=== PATIENT | male | born 1965 | race American Indian/Alaskan Native ===

== ENCOUNTER 2019-06-12 01:04 | Inpatient (IN) | payer OTHER ==
[2019-06-12] MEDS ORDERED: CLEOCIN 600 MG/50 mL 600 MG/50 ML BAG IV ONE (06:45)
--- NOTE | 2019-06-12 06:47 | Emergency Department Report ---
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 He has a history of diabetes. He states a few weeks ago he was admitted to [facility], for diabetes. He was discharged, and now presents with complaint of infected sacral wounds. He states his caregiver believes the wound is infected. He states he had a fever 2 weeks ago. No fevers in the past 7 days. He also describes muscle cramps. He denies additional complaints. He believes he acquired the wound from his hospitalization. -: week(s) Consistency: constant Improves with: none Worsens with: none - Related Data Home Medications Medication Instructions Recorded Confirmed Last Taken Insulin Glargine,Hum.rec.anlog 06/12/19 Unknown [Lantus Solostar] Insulin Glargine,Hum.rec.anlog 35 units SUB-Q DAILY 06/12/19 06/12/19 06/12/19 10:14 [Lantus Solostar] 35 Allergies Allergy/AdvReac Type Severity Reaction Status Date / Time No Known Allergies Allergy Unverified 06/12/19 07:02 ED Review of Systems ROS: Stated complaint: BED SORES/OPEN WOUNDS Other details as noted in HPI Constitutional: fever Eyes: denies: eye discharge ENT: denies: congestion Respiratory: denies: wheezing Cardiovascular: denies: syncope Gastrointestinal: denies: abdominal pain Musculoskeletal: myalgia Skin: lesions Neurological: denies: weakness Hematological/Lymphatic: denies: easy bleeding ED Past Medical Hx - Past Medical History Previous Medical History?: Yes Hx Diabetes: Yes - Surgical History Past Surgical History?: No - Social History Smoking Status: Former Smoker Substance Use Type: None - Medications Home Medications: Home Medications Medication Instructions Recorded Confirmed Last Taken Type Insulin Glargine,Hum.rec.anlog 06/12/19 Unknown History [Lantus Solostar] Insulin Glargine,Hum.rec.anlog 35 units SUB-Q DAILY 06/12/19 06/12/19 06/12/19 10:14 History [Shyla Padilla] 35 ED Physical Exam - General Limitations: No Limitations General appearance: alert, in no apparent distress - Head Head exam: Present: atraumatic, normocephalic - Eye Eye exam: Present: normal appearance - ENT ENT exam: Present: normal exam, normal orophraynx, mucous membranes moist, normal external ear exam - Neck Neck exam: Present: normal inspection, full ROM. Absent: tenderness, meningismus - Respiratory Respiratory exam: Present: normal lung sounds bilaterally. Absent: respiratory distress - Cardiovascular Cardiovascular Exam: Present: regular rate, normal rhythm, normal heart sounds. Absent: bradycardia, tachycardia, irregular rhythm, systolic murmur, diastolic murmur, rubs, gallop - GI/Abdominal GI/Abdominal exam: Present: soft. Absent: distended, tenderness, guarding, rebound, rigid, pulsatile mass - Rectal Rectal exam: Present: other (there is a 4 x 4 centimeters sacral wounds, with purulent discharge, and gluteal induration. Outpatient Dietitian by NANCY Meyer). Absent: deferred, normal inspection - Extremities Exam Extremities exam: Present: normal inspection, full ROM, other (2+ pulses noted in the bilateral upper, lower extremities. There is no long bone tenderness. Musculoskeletal compartments are soft. The pelvis is stable.). Absent: pedal edema, calf tenderness - Back Exam Back exam: Present: normal inspection, full ROM. Absent: tenderness, CVA tenderness (R), CVA tenderness (L), paraspinal tenderness, vertebral tenderness - Neurological Exam Neurological exam: Present: alert, other (there is no facial droop. The tongue is midline. Extraocular movements are intact bilaterally. Patient speaking in full complete sentences. Shoulder shrug is intact bilaterally. Hearing is grossly intact bilaterally. Visual acuity intact to finger counting and color perception at a close distance. 5/5 strength 4 extremities. Sensation intact to light touch in 4 extremities.) - Psychiatric Psychiatric exam: Present: normal affect, normal mood - Skin Skin exam: Present: warm ED Course Vital Signs 06/12/19 06/12/19 06/12/19 01:12 06:40 09:24 Temperature 98.1 F 97.9 F 98.9 F Pulse Rate 81 73 73 Respiratory 20 22 18 Rate Blood Pressure 135/81 Blood Pressure 140/78 146/75 [Left] O2 Sat by Pulse 97 99 98 Oximetry - Reevaluation(s) Reevaluation #1: 06/12/19 07:43 Dr Plunkett to admit ED Medical Decision Making - Lab Data Result diagrams: 06/12/19 07:09 06/12/19 07:09 Vital Signs 06/12/19 06/12/19 01:12 06:40 Temperature 98.1 F 97.9 F Pulse Rate 81 73 Respiratory 20 22 Rate Blood Pressure 135/81 Blood Pressure 140/78 [Left] O2 Sat by Pulse 97 99 Oximetry Lab Results 06/12/19 06/12/19 06/12/19 Range/Units 01:44 07:09 07:09 WBC 6.7 (4.5-11.0) K/mm3 RBC 3.49 L (3.65-5.03) M/mm3 Hgb 11.0 L (11.8-15.2) gm/dl Hct 32.9 L (35.5-45.6) % MCV 94 (84-94) fl MCH 32 (28-32) pg MCHC 34 (32-34) % RDW 17.7 H (13.2-15.2) % Plt Count 545 H (140-440) K/mm3 Lymph % (Auto) 33.9 (13.4-35.0) % [place] % (Auto) 9.1 H (0.0-7.3) % Eos % (Auto) 1.7 (0.0-4.3) % Baso % (Auto) 0.5 (0.0-1.8) % Lymph # 2.3 (1.2-5.4) K/mm3 [place] # 0.6 (0.0-0.8) K/mm3 Eos # 0.1 (0.0-0.4) K/mm3 Baso # 0.0 (0.0-0.1) K/mm3 Seg Neutrophils % 54.8 (40.0-70.0) % Seg Neutrophils # 3.7 (1.8-7.7) K/mm3 VBG pH 7.338 (7.320-7.420) POC Glucose 112 H (70-105) - Medical Decision Making Differential diagnosis, including not limited to: Infected sacral wounds, gluteal cellulitis Assessment and plan: 53-year-old gentleman with infected sacral wound. He is afebrile with reassuring vital signs. There is clinical evidence of gluteal cellulitis but no abscess. He'll benefit from wound debridement, antibiotics and wound care. Based off of the exam, need for urgent debridement, he meets criteria for hospitalization. He does not meet criteria for sepsis. Discussed plan of care for admission with patient and caregiver, who verbalized understanding, and who are amenable to hospitalization. Contacted general surgeon, Dr. Louise Wagner, who graciously agreed to follow in consultation. We will discussed with the Hospital physician to arrange admission. Critical care attestation.: If time is entered above; I have spent that time in minutes in the direct care of this critically ill patient, excluding procedure time. ED Disposition Clinical Impression: Cellulitis, gluteal, Infected wound Disposition: OP ADMIT IP TO THIS HOSP Is pt being admited?: Yes Condition: Good
[2019-06-12 07:31] LABS: Basophils % (Auto) 0.5 % (0.0-1.8); Eosinophils # (Auto) 0.1 K/mm3 (0.0-0.4); Eosinophils % (Auto) 1.7 % (0.0-4.3); Hematocrit 32.9 % (35.5-45.6); Lymphocytes # (Auto) 2.3 K/mm3 (1.2-5.4); Lymphocytes % (Auto) 33.9 % (13.4-35.0); Mean Corpuscular HGB Conc 34 % (32-34); Mean Corpuscular Volume 94 fl (84-94); Monocytes # (Auto) 0.6 K/mm3 (0.0-0.8); Monocytes % (Auto) 9.1 % (0.0-7.3); Platelet Count 545 K/mm3 (140-440); Red Blood Count 3.49 M/mm3 (3.65-5.03); Red Cell Distribution Width 17.7 % (13.2-15.2)
[2019-06-12 07:42] LABS: INR 1.01 (0.87-1.13)
[2019-06-12 07:43] LABS: Partial Thromboplastin Time 27.7 Sec. (24.2-36.6)
[2019-06-12 07:50] LABS: Alanine Aminotransferase 10 units/L (7-56); Albumin 4.3 g/dL (3.9-5); BUN/Creatinine Ratio 20; Blood Urea Nitrogen 16 mg/dL (9-20); Calcium 9.3 mg/dL (8.4-10.2); Hemolysis Index 6
[2019-06-12] MEDS ORDERED: TYLENOL PO PRN (08:00)
[2019-06-12] MEDS ORDERED: PROVENTIL IH PRN (08:00)
[2019-06-12] MEDS ORDERED: ZOFRAN IV PRN (08:00)
[2019-06-12] MEDS ORDERED: SODIUM CHLORIDE FLUSH SYRINGE 10 ML IV PRN (08:00)
[2019-06-12] MEDS ORDERED: D50W (25GM) Syringe IV PRN (08:00)
--- NOTE | 2019-06-12 08:03 | History and Physical Report ---
History of Present Illness Date of examination: 06/12/19 Date of admission: 06/12/19 Chief complaint: Sacral ULCER History of present illness: Patient is a 53-year-old male with past medical history of diabetes mellitus and sacral ulcer just diagnosed a few weeks ago according to the patient was admitted to the [facility] for diabetic coma. The patient who was in his normal usual state of health up until a few weeks ago when he went into a coma and was rapidly transported to [facility] where he was diagnosed with DKA. He spends about 3 days according to the patient in the hospital following that developed sacral ulcer. He reported that he was managed at the time and was discharged with home health. He reports that he has been on Lantus and has been adjusting his dose based on his blood sugar current recommendations for his primary care physician. This morning he noted drainage from the sacral ulcer and promptly came to the hospital for evaluation. He denies any chest pain nausea vomiting or diarrhea. He reports Fever but unable to quantify it. Past History Past Medical History: diabetes, other (sacral ulcer) Past Surgical History: Other Social history: full code Family history: no significant family history Medications and Allergies Allergies Allergy/AdvReac Type Severity Reaction Status Date / Time No Known Allergies Allergy Unverified 06/12/19 07:02 Home Medications Medication Instructions Recorded Confirmed Last Taken Type Insulin Glargine,Hum.rec.anlog 06/12/19 Unknown History [Lantus Solostar] Insulin Glargine,Hum.rec.anlog 35 units SUB-Q DAILY 06/12/19 06/12/19 06/12/19 10:14 History [Lantus Solostar] 35 Review of Systems All systems: negative Constitutional: fever, fatigue, weakness, poor appetite, no weight loss, no weight gain, no chills, no sweats, no night sweats, no anorexia, no malaise, no lethargy, no chronic headaches, no daytime sleepiness, no chronic pain Ears, nose, mouth and throat: no ear discharge, no nasal congestion, no nasal discharge, no dental pain, no mouth pain, no dysphagia Cardiovascular: no chest pain, no palpitations, no edema, no lightheadedness, no shortness of breath, no dyspnea on exertion, no paroxysmal nocturnal dyspnea, no high blood pressure, no leg edema Respiratory: no cough with sputum, no excessive sputum, no hemoptysis, no shortness of breath, no dyspnea on exertion, no wheezing, no pleurisy, no pain on inspiration, no sleep apnea, no respiratory infections, no home oxygen Gastrointestinal: no abdominal pain, no nausea, no vomiting, no diarrhea, no constipation, no change in bowel habits, no hematemesis, no melena, no hematochezia, no heartburn, no jaundice Musculoskeletal: no neck stiffness, no neck pain, no shooting arm pain, no low back pain, no shooting leg pain, no leg numbness/tingling, no morning stiffness, no muscle weakness, no muscle cramps, no frequent falls, no loss of height, no prior amputations Integumentary: redness, sores, wounds, no rash, no pruritis, no lesions, no acne, no color changes Neurological: no transient paralysis, no weakness, no parathesias, no tingling, no change in mentation Psychiatric: no memory loss, no insomnia, no hallucinations, no depression, no hopelessness Endocrine: fatigue, no heat intolerance, no polyphagia, no excessive thirst, no polydipsia, no polyuria, no weight change, no proptosis Hematologic/Lymphatic: no easy bruising, no easy bleeding Allergic/Immunologic: no persistent infections, no anaphylaxis Exam - Constitutional Vitals: Temp Pulse Resp BP Pulse Ox 97.9 F 73 22 140/78 99 06/12/19 06:40 06/12/19 06:40 06/12/19 06:40 06/12/19 06:40 06/12/19 06:40 General appearance: Present: no acute distress, well-nourished - EENT Eyes: Present: PERRL, EOM intact ENT: hearing intact, clear oral mucosa - Neck Neck: Present: supple, normal ROM - Respiratory Respiratory effort: normal Respiratory: bilateral: CTA - Cardiovascular Rhythm: regular Heart Sounds: Present: S1 & S2. Absent: systolic murmur, diastolic murmur - Extremities Extremities: no ischemia, pulses intact, pulses symmetrical, No edema, normal temperature, normal color, Full ROM Peripheral Pulses: within normal limits - Abdominal General gastrointestinal: Present: soft, non-tender, non-distended, normal bowel sounds - Integumentary Integumentary: Present: warm, erythema (sacral ulcer-draining) - Psychiatric Psychiatric: appropriate mood/affect, intact judgment & insight, cooperative - Neurologic Neurologic: CNII-XII intact, moves all extremities - Allied Health Allied health notes reviewed: nursing Results - Labs CBC & Chem 7: 06/12/19 07:09 06/12/19 07:09 Labs: Laboratory Last Values WBC 6.7 K/mm3 (4.5-11.0) 06/12/19 07:09 RBC 3.49 M/mm3 (3.65-5.03) L 06/12/19 07:09 Hgb 11.0 gm/dl (11.8-15.2) L 06/12/19 07:09 Hct 32.9 % (35.5-45.6) L 06/12/19 07:09 MCV 94 fl (84-94) 06/12/19 07:09 MCH 32 pg (28-32) 06/12/19 07:09 MCHC 34 % (32-34) 06/12/19 07:09 RDW 17.7 % (13.2-15.2) H 06/12/19 07:09 Plt Count 545 K/mm3 (140-440) H 06/12/19 07:09 Lymph % (Auto) 33.9 % (13.4-35.0) 06/12/19 07:09 [place] % (Auto) 9.1 % (0.0-7.3) H 06/12/19 07:09 Eos % (Auto) 1.7 % (0.0-4.3) 06/12/19 07:09 Baso % (Auto) 0.5 % (0.0-1.8) 06/12/19 07:09 Lymph # 2.3 K/mm3 (1.2-5.4) 06/12/19 07:09 [place] # 0.6 K/mm3 (0.0-0.8) 06/12/19 07:09 Eos # 0.1 K/mm3 (0.0-0.4) 06/12/19 07:09 Baso # 0.0 K/mm3 (0.0-0.1) 06/12/19 07:09 Seg Neutrophils % 54.8 % (40.0-70.0) 06/12/19 07:09 Seg Neutrophils # 3.7 K/mm3 (1.8-7.7) 06/12/19 07:09 PT 13.0 Sec. (12.2-14.9) 06/12/19 07:09 INR 1.01 (0.87-1.13) 06/12/19 07:09 APTT 27.7 Sec. (24.2-36.6) 06/12/19 07:09 VBG pH 7.338 (7.320-7.420) 06/12/19 07:09 Sodium 141 mmol/L (137-145) 06/12/19 07:09 Potassium 4.8 mmol/L (3.6-5.0) 06/12/19 07:09 Chloride 103.4 mmol/L (98-107) 06/12/19 07:09 Carbon Dioxide 22 mmol/L (22-30) 06/12/19 07:09 Anion Gap 20 mmol/L 06/12/19 07:09 BUN 16 mg/dL (9-20) 06/12/19 07:09 Creatinine 0.8 mg/dL (0.8-1.5) 06/12/19 07:09 Estimated GFR > 60 ml/min 06/12/19 07:09 BUN/Creatinine Ratio 20 % 06/12/19 07:09 Glucose 115 mg/dL (75-100) H 06/12/19 07:09 POC Glucose 112 (70-105) H 06/12/19 01:44 Calcium 9.3 mg/dL (8.4-10.2) 06/12/19 07:09 Magnesium 1.80 mg/dL (1.7-2.3) 06/12/19 07:09 Total Bilirubin 0.20 mg/dL (0.1-1.2) 06/12/19 07:09 AST 17 units/L (5-40) 06/12/19 07:09 ALT 10 units/L (7-56) 06/12/19 07:09 Alkaline Phosphatase 47 units/L (35-129) 06/12/19 07:09 Total Creatine Kinase 60 units/L (55-170) 06/12/19 07:09 Total Protein 8.0 g/dL (6.3-8.2) 06/12/19 07:09 Albumin 4.3 g/dL (3.9-5) 06/12/19 07:09 Albumin/Globulin Ratio 1.2 % 06/12/19 07:09 Assessment and Plan Assessment and plan: Patient is a 53-year-old male with past medical history of diabetes mellitus and sacral ulcer just diagnosed a few weeks ago according to the patient was admitted to the [facility] for diabetic coma. The patient who was in his normal usual state of health up until a few weeks ago when he went into a coma and was rapidly transported to [facility] where he was diagnosed with DKA. He spends about 3 days according to the patient in the hospital following that developed sacral ulcer. He reported that he was managed at the time and was discharged with home health. He reports that he has been on Lantus and has been adjusting his dose based on his blood sugar current recommendations for his primary care physician. This morning he noted drainage from the sacral ulcer and promptly came to the hospital for evaluation. He reports Fever but unable to quantify it. He denies any chest pain nausea vomiting or diarrhea. He denies any fever at this time. CT pelvis: Decubitus Ulcer at the elvel of the coccyx without definite osteomyelitis. No drainable Fluid Collections is seen DM with controlled Blood glucose Sacral Pressure Ulcer-Infected r/o Osteomylitis SIRS as a result of Infected Pressure Ulcer Anemia Plan Admit to Inpatient, will likely benefit from debridement Wound care consult ID Consult considering complex wound in patient with DM Surgical consult-ED already spoke to surgeon Keep NPO Till surgical eval, in the mean time, add D5 NS, once patient starts to eat this can be discontinued Obtain records from [facility]- pt new to us Update home meds, so med rec can be done-discussed with Nurse at bedside Continue on abx- Will give a dose of Vancomycin and Cefepime and defer to ID DVT/GI prophy Advance Directives: Yes Plan of care discussed with patient/family: Yes
[2019-06-12] MEDS ORDERED: VANCOMYCIN 2,000 MG in NACL 0.9% 500 ML 500 ML IV ONE (09:00)
[2019-06-12] MEDS ORDERED: ZOSYN/NS 4.5GM/100ML 4.5 GM/100 ML VIAL IV SCH (09:00)
[2019-06-12] MEDS ORDERED: VANCOMYCIN PHARMACY TO DOSE IV SCH (09:00)
--- NOTE | 2019-06-12 09:23 | Cat Scan Report ---
CT of the pelvis without contrast INDICATION: Decubitus ulcer COMPARISON: None FINDINGS: No significant intrapelvic abnormality is seen. In the region of the coccyx and there is an overlying soft tissue ulceration containing minimal fluid and air. The underlying coccyx however ayana ws no definite bone destruction and no definite osteomyelitis is seen in this area. Otherwise no sign ificant abnormality IMPRESSION: Decubitus ulcer at the level of the coccyx without definite osteomyelitis. No drainable f luid collection is seen. Automated exposure control was utilized to diminish radiation dose. Signer Name: Jhony Gallegos MD Signed: 06/12/2019 9:19 AM Workstation Name: [id number]
[2019-06-12] MEDS: PEPCID IV SCH ×2 (10:16→23:03)
[2019-06-12] MEDS ORDERED: DAKIN'S HALF STRENGTH TP PRN (11:36)
[2019-06-12] MEDS: HumaLOG SUB-Q SCH ×4 (12:02→23:17)
[2019-06-12] MEDS: D5/0.45NS 1,000 ML IV SCH (12:02)
[2019-06-12] MEDS: SODIUM CHLORIDE FLUSH SYRINGE 10 ML IV SCH ×2 (12:03→23:03)
--- NOTE | 2019-06-12 12:37 | Consultation ---
History of Present Illness Consult date: 06/12/19 Chief complaint: sacral wound - History of present illness History of present illness: 53 yo M with hx of poorly controlled DM who presented to hospital with fever, and infected sacral wound. Patient was admitted to [facility] several weeks ago after a syncopal episode and found to have blood sugars >1000. He was treated accordingly and states he was in a coma for 3 days. While in the hospital he developed a sacral wound. 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 He does not have a PCP. NO pain in the area. Past History Past Medical History: diabetes Past Surgical History: No surgical history Social history: no significant social history Family history: no significant family history Medications and Allergies Allergies Allergy/AdvReac Type Severity Reaction Status Date / Time No Known Allergies Allergy Unverified 06/12/19 07:02 Home Medications Medication Instructions Recorded Confirmed Last Taken Type Insulin Glargine,Hum.rec.anlog 06/12/19 Unknown History [Lantus Solostar] Insulin Glargine,Hum.rec.anlog 35 units SUB-Q DAILY 06/12/19 06/12/19 06/12/19 10:14 History [Lantus Solostar] 35 Active Meds: Active Medications Acetaminophen (Tylenol) 650 mg PO Q4H PRN PRN Reason: Pain MILD(1-3)/Fever >100.5/DOMINGO Albuterol (Proventil) 2.5 mg IH Q4HRT PRN PRN Reason: Shortness Of Breath Dextrose (D50w (25gm) Syringe) 50 ml IV Q30MIN PRN PRN Reason: Hypoglycemia Famotidine (Pepcid) 20 mg IV BID ANDREW Last Admin: 06/12/19 10:16 Dose: 20 mg Documented by: Piperacillin Sod/Tazobactam Sod (Zosyn/Ns 4.5gm/100ml) 4.5 gm in 100 mls @ 200 mls/hr IV Q8HR ANDREW; Protocol Last Admin: 06/12/19 08:53 Dose: 200 mls/hr Documented by: Dextrose/Sodium Chloride (D5/0.45ns) 1,000 mls @ 75 mls/hr IV DIRECT ANDREW Last Admin: 06/12/19 12:02 Dose: 75 mls/hr Documented by: Vancomycin HCl 1,500 mg/ (Sodium Chloride) 530 mls @ 333.333 mls/hr IV Q12H ANDREW Insulin Human Lispro (Humalog) 0 unit SUB-Q ACHS ANDREW; Protocol Last Admin: 06/12/19 12:02 Dose: Not Given Documented by: Ondansetron HCl (Zofran) 4 mg IV Q8H PRN PRN Reason: Nausea And Vomiting Sodium Chloride (Sodium Chloride Flush Syringe 10 Ml) 10 ml IV BID ANDREW Last Admin: 06/12/19 12:03 Dose: 10 ml Documented by: Sodium Chloride (Sodium Chloride Flush Syringe 10 Ml) 10 ml IV PRN PRN PRN Reason: LINE FLUSH Sodium Hypochlorite (Dakin's Half Strength) 1 applic TP Q12H PRN PRN Reason: Wound Care Review of Systems All systems: negative (10 pt ROS performed and negative except for that listed in HPI) Exam Vital Signs Temp Pulse Resp BP Pulse Ox 98.1 F 81 20 135/81 97 06/12/19 01:12 06/12/19 01:12 06/12/19 01:12 06/12/19 01:12 06/12/19 01:12 Narrative exam: Gen: AAOx3. NAD ENT: no scleral icterus or conjunctival pallor CV; s1, S2 Resp: even and unlabored Abd: soft Ext: no c/c/e Sacrum: stage 3 sacral decubitus wound with mild odor and one area of necrotic tissue. No drainage, red base. Results - Labs 06/12/19 07:09 06/12/19 07:09 Abnormal lab results 06/12/19 06/12/19 06/12/19 Range/Units 01:44 07:09 07:09 RBC 3.49 L (3.65-5.03) M/mm3 Hgb 11.0 L (11.8-15.2) gm/dl Hct 32.9 L (35.5-45.6) % RDW 17.7 H (13.2-15.2) % Plt Count 545 H (140-440) K/mm3 [place] % (Auto) 9.1 H (0.0-7.3) % Glucose 115 H (75-100) mg/dL POC Glucose 112 H (70-105) Hemoglobin A1c (4-6) % 06/12/19 Range/Units 08:12 RBC (3.65-5.03) M/mm3 Hgb (11.8-15.2) gm/dl Hct (35.5-45.6) % RDW (13.2-15.2) % Plt Count (140-440) K/mm3 [place] % (Auto) (0.0-7.3) % Glucose (75-100) mg/dL POC Glucose (70-105) Hemoglobin A1c 9.5 H (4-6) % Diabetes panel 06/12/19 06/12/19 Range/Units 07:09 08:12 Sodium 141 (137-145) mmol/L Potassium 4.8 (3.6-5.0) mmol/L Chloride 103.4 (98-107) mmol/L Carbon Dioxide 22 (22-30) mmol/L BUN 16 (9-20) mg/dL Creatinine 0.8 (0.8-1.5) mg/dL Glucose 115 H (75-100) mg/dL Hemoglobin A1c 9.5 H (4-6) % Calcium 9.3 (8.4-10.2) mg/dL AST 17 (5-40) units/L ALT 10 (7-56) units/L Alkaline Phosphatase 47 (35-129) units/L Total Protein 8.0 (6.3-8.2) g/dL Albumin 4.3 (3.9-5) g/dL Calcium panel 06/12/19 Range/Units 07:09 Calcium 9.3 (8.4-10.2) mg/dL Albumin 4.3 (3.9-5) g/dL Pituitary panel 06/12/19 Range/Units 07:09 Sodium 141 (137-145) mmol/L Potassium 4.8 (3.6-5.0) mmol/L Chloride 103.4 (98-107) mmol/L Carbon Dioxide 22 (22-30) mmol/L BUN 16 (9-20) mg/dL Creatinine 0.8 (0.8-1.5) mg/dL Glucose 115 H (75-100) mg/dL Calcium 9.3 (8.4-10.2) mg/dL Adrenal panel 06/12/19 Range/Units 07:09 Sodium 141 (137-145) mmol/L Potassium 4.8 (3.6-5.0) mmol/L Chloride 103.4 (98-107) mmol/L Carbon Dioxide 22 (22-30) mmol/L BUN 16 (9-20) mg/dL Creatinine 0.8 (0.8-1.5) mg/dL Glucose 115 H (75-100) mg/dL Calcium 9.3 (8.4-10.2) mg/dL Total Bilirubin 0.20 (0.1-1.2) mg/dL AST 17 (5-40) units/L ALT 10 (7-56) units/L Alkaline Phosphatase 47 (35-129) units/L Total Protein 8.0 (6.3-8.2) g/dL Albumin 4.3 (3.9-5) g/dL - Imaging CT scan - pelvis: report reviewed, image reviewed Assessment and Plan 53 yo M with 1. infected sacral decubitus ulcer 2. DM Plan: 1. Diabetic diet with glucerna BID 2. IV abx 3. wound cultures obtained and pending 4. offloading 5. will need debridement of devitalized tissue. Discussed with patient and he is agreeable 6. Dakins packing to wound BID today and tomorrow 7. oil laboratory analyst consult 8. Patient is an ideal candidate for a wound vac. Will have oil laboratory analyst assess wound on Friday and apply vac 9. case management consult 10. strict glucose control Thank you, please call with questions.
--- NOTE | 2019-06-12 15:04 | Procedure Note ---
Date of procedure: 06/12/19 Pre-op diagnosis: infected sacral wound Post-op diagnosis: same Procedure: debridement of sacral decubitus wound Findings: Consent obtained and witnessed. Time out performed. The wound bed is insensate and did not require anesthetic. Necrotic subcutaneous tissue was debrided sharply using forecep and scissors. Once debridement was complete hemostasis was carefully ensured. The wound bed was clean with red granulation tissue. No drainage. The wound was packed with 2 pieces of 4x4 gauze moistened with dakins solution. This was covered by dry 4x4 gauze and sacral foam dressing. Patient tolerated procedure well. All sharps disposed of appropriately. Anesthesia: none (insensate) Surgeon: SHERLY NINA Estimated blood loss: minimal Pathology: none Condition: stable Disposition: no change
[2019-06-12] MEDS: CEFEPIME/NS 1 GM/100 ML 1 GM/100 ML BAG IV SCH ×2 (16:05→23:01)
[2019-06-12] MEDS ORDERED: MORPHINE IV PRN (22:59)
[2019-06-12] MEDS: VANCOMYCIN 1,500 MG in NACL 0.9% 500 ML 500 ML IV SCH (23:02)
[2019-06-13 05:05] LABS: Hematocrit 32.8 % (35.5-45.6); Hemoglobin 10.8 gm/dl (11.8-15.2); Mean Corpuscular HGB Conc 33 % (32-34); Mean Corpuscular Volume 95 fl (84-94); Platelet Count 488 K/mm3 (140-440); Red Blood Count 3.45 M/mm3 (3.65-5.03); Red Cell Distribution Width 17.4 % (13.2-15.2)
[2019-06-13] MEDS: D5/0.45NS 1,000 ML IV SCH (05:26)
[2019-06-13 05:33] LABS: BUN/Creatinine Ratio 13; Blood Urea Nitrogen 12 mg/dL (9-20); Calcium 9.1 mg/dL (8.4-10.2); Hemolysis Index 6; Prealbumin 0.415 g/L (0.200-0.400)
[2019-06-13 06:13] LABS: Anisocytosis 1+; Basophils % (Manual) 0 % (0.0-1.8); Total Cells Counted 100
[2019-06-13 06:14] LABS: Platelet Estimate Consistent w Auto
[2019-06-13] MEDS: HumaLOG SUB-Q SCH ×4 (08:38→22:55)
[2019-06-13] MEDS: CEFEPIME/NS 1 GM/100 ML 1 GM/100 ML BAG IV SCH ×2 (08:38→15:24)
[2019-06-13] MEDS: SODIUM CHLORIDE FLUSH SYRINGE 10 ML IV SCH (10:04)
[2019-06-13] MEDS: PEPCID IV SCH ×2 (10:04→22:11)
--- NOTE | 2019-06-13 11:15 | Consultation ---
History of Present Illness - Reason for Consult Consult date: 06/13/19 sacral decbitus Requesting physician: JIM SALAS - History of Present Illness 53 y/o male with history of diabetes who was admitted at [facility] for DKA 6 weeks ago and developed a sacral decubitus ulcer, admitted to [facility] on 06/12/2019 due to worsening sacral pain and foul smelling drainage. He stayed admitted for DKA for about 3 days. He has never had decubitus. He is able to walk. His home glucose is better control. Denies fever, chills, N/V/D. In the ED, temp 98.1, HR 81, R 20, BP 135/81, O2 97. WBC 6.7. Plat 545. Creat 0.8.CT pelvis shows decubitus ulcer at the coccyx levvel withou osteomyelitis or abscess. Patient underwent OR debridement. Wound culture 06/12/2019 with usual skin jana. ID consulted for management of sacral decubitus. Review of Systems: General: no fever, chills, no malaise Cutaneous: +sacral wound Head: no headaches or injury Eyes: no changes in vision, eye pain, double vision Ears: no ear pain, ear discharge, ringing or hearing loss Nose: no nose bleeding, stuffiness Mouth & throat: no bleeding gums, no horseness, no dental problems, or swollen glands Neck: no pain, node enlargement/lumps, tyroid enlargement or tenderness Respiratory: no SOB, no cough, no HARRISON, wheezing, sputum, hemoptysis, pleuritic chest pain Cardiovascular: no chest pain, leg edema, cyanosis, HARRISON, orthopnea Musculoskeletal: no edema Gastrointestinal: no nausea, no vomiting, no hematemesis, diarrhea, constipation, melena, bright red blood in stools, fecal incontinence, jaundice Genitourinary/Reproductive: no frequent urination, dysuria, hematuria, incontinence Neurogical: no seizures, no headaches, no weakness, no paresthesias, no loss of speech or vision; no memory loss, no vertigo, no tremors, no numbness Psychiatric: stable mood; no excessive anxiety, sadness or moodiness Past History Past Medical History: diabetes, other (sacral ulcer) Past Surgical History: Other Social history: full code Family history: no significant family history Medications and Allergies Allergies Allergy/AdvReac Type Severity Reaction Status Date / Time No Known Allergies Allergy Unverified 06/12/19 07:02 Home Medications Medication Instructions Recorded Confirmed Last Taken Type Insulin Glargine,Hum.rec.anlog 35 units SUB-Q DAILY 06/12/19 06/12/19 06/12/19 10:14 History [Lantus Solostar] 35 Active Meds: Active Medications Acetaminophen (Tylenol) 650 mg PO Q4H PRN PRN Reason: Pain MILD(1-3)/Fever >100.5/DOMINGO Albuterol (Proventil) 2.5 mg IH Q4HRT PRN PRN Reason: Shortness Of Breath Dextrose (D50w (25gm) Syringe) 50 ml IV Q30MIN PRN PRN Reason: Hypoglycemia Famotidine (Pepcid) 20 mg IV BID [facility] Last Admin: 06/13/19 10:04 Dose: 20 mg Documented by: Dextrose/Sodium Chloride (D5/0.45ns) 1,000 mls @ 75 mls/hr IV DIRECT [facility] Last Admin: 06/13/19 05:26 Dose: 75 mls/hr Documented by: Vancomycin HCl 1,500 mg/ (Sodium Chloride) 530 mls @ 333.333 mls/hr IV Q12H [facility] Last Admin: 06/12/19 23:02 Dose: 333.333 mls/hr Documented by: Cefepime HCl (Maxipime/Ns 1 Gm/100 Ml) 1 gm in 100 mls @ 200 mls/hr IV Q8H [facility] Last Admin: 06/13/19 08:38 Dose: 200 mls/hr Documented by: Insulin Human Lispro (Humalog) 0 unit SUB-Q ACHS [facility]; Protocol Last Admin: 06/13/19 08:38 Dose: Not Given Documented by: Morphine Sulfate (Morphine) 4 mg IV Q4H PRN PRN Reason: Pain , Severe (7-10) Ondansetron HCl (Zofran) 4 mg IV Q8H PRN PRN Reason: Nausea And Vomiting Sodium Chloride (Sodium Chloride Flush Syringe 10 Ml) 10 ml IV BID [facility] Last Admin: 06/13/19 10:04 Dose: 10 ml Documented by: Sodium Chloride (Sodium Chloride Flush Syringe 10 Ml) 10 ml IV PRN PRN PRN Reason: LINE FLUSH Sodium Hypochlorite (Dakin's Half Strength) 1 applic TP Q12H PRN PRN Reason: Wound Care Last Admin: 06/12/19 15:00 Dose: 1 appful Documented by: Physical Examination - Physical Exam Narrative exam: General appearance: Alert in NAD Eyes: anicteric sclerae, moist conjunctivae; no lid-lag; PERRLA HENT: Atraumatic; oropharynx clear with moist mucous membranes and no mucosal ulcerations/no oral thrush; normal hard and soft palate. Lungs: CTA, with normal respiratory effort and no intercostal retractions CV: RRR no murmur Abdomen: Soft, non-tender; no masses or hepatosplenomegaly Extremities: no edema, no cyanosis Skin: +sacral decubitus with surgical dressings Psych: Appropriate affect, alert and oriented to person, place and time. Neuro: alert and oriented x 3. Moving all extermities - Constitutional Vitals: Vital Signs Temp Pulse Resp BP Pulse Ox 98.9 F 66 18 126/82 99 06/13/19 05:57 06/13/19 05:57 06/13/19 05:57 06/13/19 05:57 06/13/19 05:57 Temperature -Last 24 Hours Temperature 98.9 F Temperature 99.4 F Temperature 97.0 F Results - Labs CBC & Chem 7: 06/13/19 04:34 06/13/19 04:34 Labs: Abnormal lab results 06/12/19 06/13/19 06/13/19 Range/Units 17:17 04:34 04:34 RBC 3.45 L (3.65-5.03) M/mm3 Hgb 10.8 L (11.8-15.2) gm/dl Hct 32.8 L (35.5-45.6) % MCV 95 H (84-94) fl RDW 17.4 H (13.2-15.2) % Plt Count 488 H (140-440) K/mm3 Seg Neuts % (Manual) 35.0 L (40.0-70.0) % Lymphocytes % (Manual) 52.0 H (13.4-35.0) % Monocytes % (Manual) 8.0 H (0.0-7.3) % Glucose 123 H (75-100) mg/dL POC Glucose 137 H (70-105) Prealbumin 0.415 H (0.200-0.400) g/L 06/13/19 Range/Units 08:25 RBC (3.65-5.03) M/mm3 Hgb (11.8-15.2) gm/dl Hct (35.5-45.6) % MCV (84-94) fl RDW (13.2-15.2) % Plt Count (140-440) K/mm3 Seg Neuts % (Manual) (40.0-70.0) % Lymphocytes % (Manual) (13.4-35.0) % Monocytes % (Manual) (0.0-7.3) % Glucose (75-100) mg/dL POC Glucose 131 H (70-105) Prealbumin (0.200-0.400) g/L Assessment and Plan Cultures: Wound culture 06/12/2019 with usual skin jana Assessment: 53 y/o male with history of diabetes who was admitted at [facility] for DKA 6 weeks ago and developed a sacral decubitus ulcer, Now with: 1) Stage IV sacral decubitus with cellulitis: no evidence of osteomyelitis or abscess on CT. Wound culture 06/12/2019 with usual skin jana. Patient underwent OR debridement. Wound culture 06/12/2019 with usual skin jana. ID consulted for management of sacral decubitus. Will continue unasyn and vancomycin for now. Will stop cefepime. Strict wound care and off loading are the pillar of therapy. Recommendations: Will continue unasyn and vancomycin for now. Follow wound culture Will stop cefepime. Strict wound care and off loading are the pillar of therapy. Will follow. Anum Pastrana MD Infectious Diseases Substation Manager [facility] M [phone] Will follow.
[2019-06-13] MEDS: VANCOMYCIN 1,500 MG in NACL 0.9% 500 ML 500 ML IV SCH (11:46)
--- NOTE | 2019-06-13 13:49 | Progress Note ---
Assessment and Plan A/p: DM with controlled Blood glucose Sacral Pressure Ulcer-Infected r/o Osteomylitis SIRS as a result of Infected Pressure Ulcer Anemia Plan Inpatient, for debridement done. Wound care consult--Debridement done by Surgery-Dr Kristy AVILA Consult recomendations noted ---pending recomendation Unasyn added and Vanco added Surgical consult-Appreciated--- Necrotic subcutaneous tissue was debrided sharply using forecep and scissors. Once debridement was complete hemostasis was carefully ensured. The wound bed was clean with red granulation tissue. No drainage. The wound was packed with 2 pieces of 4x4 gauze moistened with dakins solution. This was covered by dry 4x4 gauze and sacral foam dressing. Patient tolerated procedure well. IDDM-Uncontrolled --Lantus added D5 NS, once patient starts to eat this can be discontinued Obtain records from [facility]- pt new to us Update home meds, so med rec can be done-discussed with Nurse at bedside Continue on abx- Will give a dose of Vancomycin and Cefepime and defer to ID DVT/GI prophy Subjective Date of service: 06/13/19 Principal diagnosis: SIRS,Sacral Decubitus ulcer,Uncontrolled diabetes Interval history: 53-year-old male with past medical history of diabetes mellitus and sacral ulcer just diagnosed a few weeks ago according to the patient was admitted to the [facility] for diabetic coma. The patient who was in his normal usual state of health up until a few weeks ago when he went into a coma and was rapidly transported to [facility] where he was diagnosed with DKA. He spends about 3 days according to the patient in the hospital following that developed sacral ulcer. He reported that he was managed at the time and was discharged with home health. He reports that he has been on Lantus and has been adjusting his dose based on his blood sugar current recommendations for his primary care physician. This morning he noted drainage from the sacral ulcer and promptly came to the hospital for evaluation. He denies any chest pain nausea vomiting or diarrhea. He reports Fever but unable to quantify it. Objective - Constitutional Vitals: Vital Signs - 12hr 06/13/19 05:57 Temperature 98.9 F Pulse Rate 66 Respiratory 18 Rate Blood Pressure 126/82 O2 Sat by Pulse 99 Oximetry General appearance: Present: no acute distress, well-nourished - EENT Eyes: PERRL, EOM intact ENT: hearing intact, clear oral mucosa Ears: bilateral: normal - Neck Neck: supple, normal ROM - Respiratory Respiratory effort: normal Respiratory: bilateral: CTA - Breasts Breasts: normal - Cardiovascular Heart rate: 78 Rhythm: regular Heart Sounds: Present: S1 & S2. Absent: gallop, rub Extremities: pulses intact, No edema, normal color, Full ROM Extremity abnormal: other (Sacral Decub ulcer--Stg 4) - Gastrointestinal General gastrointestinal: Present: soft, non-tender, non-distended, normal bowel sounds - Genitourinary Male genitourinary: normal - Integumentary Integumentary: clear, warm, dry - Musculoskeletal Musculoskeletal: 1, strength equal bilaterally - Neurologic Neurologic: moves all extremities - Psychiatric Psychiatric: memory intact, appropriate mood/affect, intact judgment & insight - Labs CBC & Chem 7: 06/13/19 04:34 06/13/19 04:34 Labs: Abnormal lab results 06/12/19 06/13/19 06/13/19 Range/Units 17:17 04:34 04:34 RBC 3.45 L (3.65-5.03) M/mm3 Hgb 10.8 L (11.8-15.2) gm/dl Hct 32.8 L (35.5-45.6) % MCV 95 H (84-94) fl RDW 17.4 H (13.2-15.2) % Plt Count 488 H (140-440) K/mm3 Seg Neuts % (Manual) 35.0 L (40.0-70.0) % Lymphocytes % (Manual) 52.0 H (13.4-35.0) % Monocytes % (Manual) 8.0 H (0.0-7.3) % Glucose 123 H (75-100) mg/dL POC Glucose 137 H (70-105) Prealbumin 0.415 H (0.200-0.400) g/L 06/13/19 06/13/19 Range/Units 08:25 11:24 RBC (3.65-5.03) M/mm3 Hgb (11.8-15.2) gm/dl Hct (35.5-45.6) % MCV (84-94) fl RDW (13.2-15.2) % Plt Count (140-440) K/mm3 Seg Neuts % (Manual) (40.0-70.0) % Lymphocytes % (Manual) (13.4-35.0) % Monocytes % (Manual) (0.0-7.3) % Glucose (75-100) mg/dL POC Glucose 131 H 117 H (70-105) Prealbumin (0.200-0.400) g/L
[2019-06-13] MEDS ORDERED: VANCOMYCIN/NS 1 GM/250 ML 1 GM/250 ML BAG IV ONE (13:59)
[2019-06-13] MEDS: UNASYN/NS 3 GM/100 ML 3 GM/100 ML BAG IV SCH ×3 (15:22→23:13)
[2019-06-13] MEDS: LANTUS SUB-Q SCH (22:11)
[2019-06-14] MEDS: VANCOMYCIN 1,500 MG in NACL 0.9% 500 ML 500 ML IV SCH ×3 (00:35→23:50)
[2019-06-14] MEDS: D5/0.45NS 1,000 ML IV SCH ×2 (03:14→15:15)
[2019-06-14] MEDS: UNASYN/NS 3 GM/100 ML 3 GM/100 ML BAG IV SCH ×4 (05:54→23:50)
[2019-06-14] MEDS: SODIUM CHLORIDE FLUSH SYRINGE 10 ML IV SCH ×3 (07:00→22:04)
[2019-06-14] MEDS: HumaLOG SUB-Q SCH ×4 (07:30→22:00)
[2019-06-14 07:36] LABS: Alanine Aminotransferase 13 units/L (7-56); BUN/Creatinine Ratio 16; Blood Urea Nitrogen 13 mg/dL (9-20); Calcium 9.3 mg/dL (8.4-10.2); Hemolysis Index 9
[2019-06-14 07:42] LABS: Hematocrit 31.8 % (35.5-45.6); Hemoglobin 10.8 gm/dl (11.8-15.2); Mean Corpuscular HGB Conc 34 % (32-34); Mean Corpuscular Volume 94 fl (84-94); Platelet Count 506 K/mm3 (140-440); Red Blood Count 3.38 M/mm3 (3.65-5.03); Red Cell Distribution Width 17.1 % (13.2-15.2)
[2019-06-14 09:18] LABS: Anisocytosis 1+; Hypochromasia 2+; Large Platelets Few; Platelet Estimate Cons; Total Cells Counted 100
[2019-06-14] MEDS: PEPCID IV SCH ×2 (11:33→22:20)
--- NOTE | 2019-06-14 12:03 | Progress Note ---
Assessment and Plan Assessment and plan: Patient is a 53-year-old male with past medical history of diabetes mellitus and sacral ulcer just diagnosed a few weeks ago according to the patient was admitted to the [facility] for diabetic coma. The patient who was in his normal usual state of health up until a few weeks ago when he went into a coma and was rapidly transported to [facility] where he was diagnosed with DKA. He spends about 3 days according to the patient in the hospital following that developed sacral ulcer. He reported that he was managed at the time and was discharged with home health. He reports that he has been on Lantus and has been adjusting his dose based on his blood sugar current recomm endations for his primary care physician. This morning he noted drainage from the sacral ulcer and promptly came to the hospital for evaluation. He reports Fever but unable to quantify it. He denies any chest pain nausea vomiting or diarrhea. He denies any fever at this time. CT pelvis: Decubitus Ulcer at the elvel of the coccyx without definite osteomyelitis. No drainable Fluid Collections is seen Surgical consult-Appreciated--- Necrotic subcutaneous tissue was debrided sharply using forecep and scissors. Once debridement was complete hemostasis was carefully ensured. The wound bed was clean with red granulation tissue. No drainage. The wound was packed with 2 pieces of 4x4 gauze moistened with dakins solution. This was covered by dry 4x4 gauze and sacral foam dressing. Patient tolerated procedure well. Per ID Continue IV antibiotics while inpatient Discharge on PO Keflex 500 mg QID plus doxycycline 100 mg BID for 5 days Mainstay of therapy is wound care and offloading along with glycemic control DM with controlled Blood glucose Sacral Pressure Ulcer-Infected r/o Osteomylitis- s/p inpatient debridement at bedside SIRS as a result of Infected Pressure Ulcer Anemia Plan Continue supportive care Continue IV abx VANC AND UNAYSN, FOLLOW CULTURES Wound care consult Awaiting Wound Vac for discharge Obtain records from [facility]- pt new to us DVT/GI prophy Disposition. Once wound vac arranged Patient can be discharged. History Interval history: Patient seen and examined, resting comfortable, no fever, no other adverse event overnight Hospitalist Physical - Physical exam Narrative exam: General appearance: Present: no acute distress, well-nourished - EENT Eyes: PERRL, EOM intact ENT: hearing intact, clear oral mucosa Ears: bilateral: normal - Neck Neck: supple, normal ROM - Respiratory Respiratory effort: normal Respiratory: bilateral: CTA - Cardiovascular Heart rate: 78 Rhythm: regular Heart Sounds: Present: S1 & S2. Absent: gallop, rub Extremities: pulses intact, No edema, normal color, Full ROM Extremity abnormal: other (Sacral Decub ulcer--Stg 4) - Gastrointestinal General gastrointestinal: Present: soft, non-tender, non-distended, normal bowel sounds - Genitourinary Male genitourinary: normal - Integumentary Integumentary: clear, warm, dry - Musculoskeletal Musculoskeletal: 1, strength equal bilaterally - Neurologic Neurologic: moves all extremities - Psychiatric Psychiatric: memory intact, appropriate mood/affect, intact judgment & insight - Constitutional Vitals: Temp Pulse Resp BP Pulse Ox 98.8 F 63 18 127/73 98 06/14/19 06:19 06/14/19 06:19 06/14/19 06:19 06/14/19 06:19 06/14/19 06:19 General appearance: Present: no acute distress, well-nourished Results - Labs CBC & Chem 7: 06/14/19 06:58 06/14/19 06:39 Labs: Laboratory Last Values WBC 4.0 K/mm3 (4.5-11.0) L 06/14/19 06:58 RBC 3.38 M/mm3 (3.65-5.03) L 06/14/19 06:58 Hgb 10.8 gm/dl (11.8-15.2) L 06/14/19 06:58 Hct 31.8 % (35.5-45.6) L 06/14/19 06:58 MCV 94 fl (84-94) 06/14/19 06:58 MCH 32 pg (28-32) 06/14/19 06:58 MCHC 34 % (32-34) 06/14/19 06:58 RDW 17.1 % (13.2-15.2) H 06/14/19 06:58 Plt Count 506 K/mm3 (140-440) H 06/14/19 06:58 Lymph % (Auto) Vendor Management Specialist 06/14/19 06:58 Owsley % (Auto) Vendor Management Specialist 06/14/19 06:58 Eos % (Auto) Vendor Management Specialist 06/14/19 06:58 Baso % (Auto) Vendor Management Specialist 06/14/19 06:58 Lymph # Vendor Management Specialist 06/14/19 06:58 Owsley # Vendor Management Specialist 06/14/19 06:58 Eos # Vendor Management Specialist 06/14/19 06:58 Baso # Vendor Management Specialist 06/14/19 06:58 Add Manual Diff Complete 06/14/19 06:58 Total Counted 100 06/14/19 06:58 Seg Neutrophils % Vendor Management Specialist 06/14/19 06:58 Seg Neuts % (Manual) 29.0 % (40.0-70.0) L 06/14/19 06:58 Band Neutrophils % 0 % 06/14/19 06:58 Lymphocytes % (Manual) 56.0 % (13.4-35.0) H 06/14/19 06:58 Reactive Lymphs % (Man) 0 % 06/14/19 06:58 Monocytes % (Manual) 8.0 % (0.0-7.3) H 06/14/19 06:58 Eosinophils % (Manual) 4.0 % (0.0-4.3) 06/14/19 06:58 Basophils % (Manual) 2.0 % (0.0-1.8) H 06/14/19 06:58 Metamyelocytes % 1.0 % 06/14/19 06:58 Myelocytes % 0 % 06/14/19 06:58 Promyelocytes % 0 % 06/14/19 06:58 Blast Cells % 0 % 06/14/19 06:58 Nucleated RBC % Not Reportable 06/14/19 06:58 Seg Neutrophils # Vendor Management Specialist 06/14/19 06:58 Seg Neutrophils # Man 1.2 K/mm3 (1.8-7.7) L 06/14/19 06:58 Band Neutrophils # 0.0 K/mm3 06/14/19 06:58 Lymphocytes # (Manual) 2.2 K/mm3 (1.2-5.4) 06/14/19 06:58 Abs React Lymphs (Man) 0.0 K/mm3 06/14/19 06:58 Monocytes # (Manual) 0.3 K/mm3 (0.0-0.8) 06/14/19 06:58 Eosinophils # (Manual) 0.2 K/mm3 (0.0-0.4) 06/14/19 06:58 Basophils # (Manual) 0.1 K/mm3 (0.0-0.1) 06/14/19 06:58 Metamyelocytes # 0.0 K/mm3 06/14/19 06:58 Myelocytes # 0.0 K/mm3 06/14/19 06:58 Promyelocytes # 0.0 K/mm3 06/14/19 06:58 Blast Cells # 0.0 K/mm3 06/14/19 06:58 WBC Morphology Not Reportable 06/14/19 06:58 Hypersegmented Neuts Not Reportable 06/14/19 06:58 Hyposegmented Neuts Not Reportable 06/14/19 06:58 Hypogranular Neuts Not Reportable 06/14/19 06:58 Smudge Cells Not Reportable 06/14/19 06:58 Toxic Granulation Not Reportable 06/14/19 06:58 Toxic Vacuolation Not Reportable 06/14/19 06:58 Dohle Bodies Not Reportable 06/14/19 06:58 Pelger-Huet Anomaly Not Reportable 06/14/19 06:58 Raymundo Rods Not Reportable 06/14/19 06:58 Platelet Estimate Cons 06/14/19 06:58 Clumped Platelets Not Reportable 06/14/19 06:58 Plt Clumps, EDTA Not Reportable 06/14/19 06:58 Large Platelets Few 06/14/19 06:58 Giant Platelets Not Reportable 06/14/19 06:58 Platelet Satelliting Not Reportable 06/14/19 06:58 Plt Morphology Comment Not Reportable 06/14/19 06:58 RBC Morphology Not Reportable 06/14/19 06:58 Dimorphic RBCs Not Reportable 06/14/19 06:58 Polychromasia Not Reportable 06/14/19 06:58 Hypochromasia 2+ 06/14/19 06:58 Poikilocytosis Not Reportable 06/14/19 06:58 Anisocytosis 1+ 06/14/19 06:58 Microcytosis 1+ 06/14/19 06:58 Macrocytosis Not Reportable 06/14/19 06:58 Spherocytes Not Reportable 06/14/19 06:58 Pappenheimer Bodies Not Reportable 06/14/19 06:58 Sickle Cells Not Reportable 06/14/19 06:58 Target Cells Not Reportable 06/14/19 06:58 Tear Drop Cells Not Reportable 06/14/19 06:58 Ovalocytes Not Reportable 06/14/19 06:58 Helmet Cells Not Reportable 06/14/19 06:58 [place] Bodies Not Reportable 06/14/19 06:58 Wishon Rings Not Reportable 06/14/19 06:58 Paradox Cells Not Reportable 06/14/19 06:58 Bite Cells Not Reportable 06/14/19 06:58 Crenated Cell Not Reportable 06/14/19 06:58 Elliptocytes Not Reportable 06/14/19 06:58 Acanthocytes (Spur) Not Reportable 06/14/19 06:58 Rouleaux Not Reportable 06/14/19 06:58 Hemoglobin C Crystals Not Reportable 06/14/19 06:58 Schistocytes Not Reportable 06/14/19 06:58 Malaria parasites Not Reportable 06/14/19 06:58 Toni Bodies Not Reportable 06/14/19 06:58 Hem Pathologist Commnt No 06/14/19 06:58 PT 13.0 Sec. (12.2-14.9) 06/12/19 07:09 INR 1.01 (0.87-1.13) 06/12/19 07:09 APTT 27.7 Sec. (24.2-36.6) 06/12/19 07:09 VBG pH 7.338 (7.320-7.420) 06/12/19 07:09 Sodium 141 mmol/L (137-145) 06/14/19 06:39 Potassium 4.2 mmol/L (3.6-5.0) 06/14/19 06:39 Chloride 101.0 mmol/L (98-107) 06/14/19 06:39 Carbon Dioxide 25 mmol/L (22-30) 06/14/19 06:39 Anion Gap 19 mmol/L 06/14/19 06:39 BUN 13 mg/dL (9-20) 06/14/19 06:39 Creatinine 0.8 mg/dL (0.8-1.5) 06/14/19 06:39 Estimated GFR > 60 ml/min 06/14/19 06:39 BUN/Creatinine Ratio 16 % 06/14/19 06:39 Glucose 124 mg/dL (75-100) H 06/14/19 06:39 POC Glucose 115 (70-105) H 06/14/19 07:45 Hemoglobin A1c 9.5 % (4-6) H 06/12/19 08:12 Calcium 9.3 mg/dL (8.4-10.2) 06/14/19 06:39 Magnesium 1.80 mg/dL (1.7-2.3) 06/12/19 07:09 Total Bilirubin 0.20 mg/dL (0.1-1.2) 06/14/19 06:39 AST 15 units/L (5-40) 06/14/19 06:39 ALT 13 units/L (7-56) 06/14/19 06:39 Alkaline Phosphatase 46 units/L (35-129) 06/14/19 06:39 Total Creatine Kinase 60 units/L (55-170) 06/12/19 07:09 Total Protein 7.6 g/dL (6.3-8.2) 06/14/19 06:39 Albumin 4.0 g/dL (3.9-5) 06/14/19 06:39 Albumin/Globulin Ratio 1.1 % 06/14/19 06:39 Prealbumin 0.415 g/L (0.200-0.400) H 06/13/19 04:34 Active Medications - Current Medications Current Medications: Generic Name Dose Route Start Last Admin Trade Name Freq PRN Reason Stop Dose Admin Acetaminophen 650 mg 06/12/19 08:00 Tylenol PO Q4H PRN Pain MILD(1-3)/Fever >100.5/DOMINGO Albuterol 2.5 mg 06/12/19 08:00 Proventil IH Q4HRT PRN Shortness Of Breath Dextrose 50 ml 06/12/19 08:00 D50w (25gm) Syringe IV Q30MIN PRN Hypoglycemia Famotidine 20 mg 06/12/19 10:00 06/14/19 11:33 Pepcid IV 20 mg BID ANDREW Administration Dextrose/Sodium Chloride 1,000 mls @ 75 mls/hr 06/12/19 08:00 06/14/19 03:14 D5/0.45ns IV 75 mls/hr DIRECT ANDREW Administration Vancomycin HCl 1,500 mg/ 530 mls @ 333.333 mls/hr 06/13/19 00:00 06/14/19 00:35 Sodium Chloride IV 333.333 mls/hr Q12H ANDREW Administration Ampicillin Sodium/Sulbactam Sodium 3 gm in 100 mls @ 100 mls/hr 06/13/19 14:00 06/14/19 05:54 Unasyn/Ns 3 Gm/100 Ml IV 100 mls/hr Q6HR ANDREW Administration Protocol Insulin Glargine 15 units 06/13/19 22:00 06/13/19 22:11 Lantus SUB-Q 15 units QHS ANDREW Administration Insulin Human Lispro 0 unit 06/12/19 11:30 06/14/19 11:33 Humalog SUB-Q Not Given ACHS [facility] Protocol Morphine Sulfate 4 mg 06/12/19 22:59 Morphine IV Q4H PRN Pain , Severe (7-10) Ondansetron HCl 4 mg 06/12/19 08:00 Zofran IV Q8H PRN Nausea And Vomiting Sodium Chloride 10 ml 06/12/19 10:00 06/14/19 11:33 Sodium Chloride Flush Syringe 10 Ml IV 10 ml BID ANDREW Administration Sodium Chloride 10 ml 06/12/19 08:00 Sodium Chloride Flush Syringe 10 Ml IV PRN PRN LINE FLUSH Sodium Hypochlorite 1 applic 06/12/19 11:36 06/12/19 15:00 Dakin's Half Strength TP 1 appful Q12H PRN Administration Wound Care Nutrition/Malnutrition Assess - Dietary Evaluation Nutrition/Malnutrition Findings: Nutrition Notes Start: 06/12/19 1 6:58 Freq: Status: Active Protocol: Document 06/12/19 16:58 RM (Rec: 06/12/19 17:09 RM [id number]) Nutrition Notes Need for Assessment generated from: MD Order Initial or Follow up Assessment Current Diagnosis Diabetes Other Pertinent Diagnosis Sacral PU, SIRS Current Diet Cardiac/Consistent CHO w/ Glucerna Vanilla BID Labs/Tests A1c 9.5 Pertinent Medications Reviewed Height 5 ft 11 in Weight 108.862 kg Usual Body Weight 118.18 kg [place] Body Weight (kg) 78.18 BMI 33.5 Subjective/Other Information Consulted for malnutrition. Pt stated that [employer] TESTER his appetite was good and that he ate 3 meals daily. Stated that he ate oatmeal for breakfast. Stated UBW was 260 lbs 3 weeks ago. No physical signs of malnutrition. Reviewed DM diet education. Gave handout. Burn Absent Trauma Absent Minimum of two criteria No #2 Nutrition Diagnosis Increased nutrient needs ( specify in comment below) Comments: glutamine, arginine, protein Etiology wound healing As Evidenced by Signs and Symptoms sacral PU #1 Nutrition Diagnosis Food and nutrition-related knowledge deficit Etiology lack of prior education As Evidenced by Signs and Symptoms pt desire for education Is patient on ventilator? No Is Patient Ambulatory and/or Out of Bed No REE-([place]-confined to bed) 2362.488 Kcal/Kg value to use for calculation 17 Approximate Energy Requirements Using 1851 kcal/Kg Calculation Used for Recommendations Kcal/kg Additional Notes Protein Needs: 113-141g (1.2-1 .5g/kg 94kg adjBW) Fluid Needs: 1 ml/kcal Nutrition Intervention Change Diet Order: Continue current Add Supplement/Snack (indicate name/kcal D/C Glucerna BID. Add Ensure /protein ) High Protein Chocolate 1 daily + Alexandre BID Provides kCal: 350 Provides Protein (gm) 21 Teaching Recipient Patient Learning Readiness Good Teaching Methods Discussion,Handout Response to Teaching Verbalize understanding Education Handouts Provided Carbohydrate Counting for People with Diabetes Barriers to Learning No Barriers RD phone number provided Yes Patient aware of follow up options Yes Goal #1 Meet at least 75% of calorie and protein needs via PO and ONS intakes Goal #2 Alexandre intake Anticipated Discharge Needs: Cardiac/Consistent CHO diet Follow-Up By: 06/14/19 Additional Comments Follow for PO and ONS intakes, necessity to continue ONS
--- NOTE | 2019-06-14 12:48 | Progress Note ---
Assessment and Plan Cultures: Wound culture 06/12/2019 with usual skin jana Assessment: 53 y/o male with history of diabetes who was admitted at [facility] for DKA 6 weeks ago and developed a sacral decubitus ulcer, Now with: 1) Stage IV sacral decubitus with cellulitis: no evidence of osteomyelitis or abscess on CT. Wound culture 06/12/2019 with usual skin jana. Patient underwent OR debridement. Wound culture 06/12/2019 with usual skin jana. ID consulted for management of sacral decubitus. Continue unasyn and vancomycin while inpatient, discharge on PO abx. 2) DM: continue glycemic control. Recommendations: Continue IV antibiotics while inpatient Discharge on PO Keflex 500 mg QID plus doxycycline 100 mg BID for 5 days Mainstay of therapy is wound care and offloading along with glycemic control d/w Dr. Plunkett. Jinny Zuluaga MD, FACP [facility] C: [phone] O: [phone] F: [phone] Subjective Date of service: 06/14/19 Principal diagnosis: SIRS,Sacral Decubitus ulcer,Uncontrolled diabetes Interval history: No fever, no new complaints, ambulating well. Denies any nausea, vomiting. Tolerating antibiotics. Objective - Exam Narrative Exam: Physical Exam: Constitutional: Alert, cooperative. No acute distress Head, Ears, Nose: Normocephalic, atraumatic. External ears, nose normal Eyes: Conjunctivae/corneas clear. No icterus. No ptosis. Neck: Supple, no meningeal signs Cardiovascular: S1, S2 normal. Respiratory: Good air entry, clear to auscultation bilaterally GI: Soft, non-tender; bowel sounds normal. No peritoneal signs Musculoskeletal: No pedal edema, no cyanosis. Sacral decub with dressing Skin: No rash or abscess Hem/Lymphatic: No palpable cervical or supraclavicular nodes. No lymphangitis Psych: Mood ok. Affect normal Neurological: Awake, alert, oriented. No gross abnormality - Constitutional Vitals: Vital Signs Temp Pulse Resp BP Pulse Ox 98.8 F 63 18 127/73 98 06/14/19 06:19 06/14/19 06:19 06/14/19 06:19 06/14/19 06:19 06/14/19 06:19 Temperature -Last 24 Hours Temperature 98.8 F Temperature 98.8 F Temperature 98.1 F - Labs CBC & Chem 7: 06/14/19 06:58 06/14/19 06:39 Labs: Abnormal lab results 06/13/19 06/14/19 06/14/19 Range/Units 21:52 06:39 06:58 WBC 4.0 L (4.5-11.0) K/mm3 RBC 3.38 L (3.65-5.03) M/mm3 Hgb 10.8 L (11.8-15.2) gm/dl Hct 31.8 L (35.5-45.6) % RDW 17.1 H (13.2-15.2) % Plt Count 506 H (140-440) K/mm3 Seg Neuts % (Manual) 29.0 L (40.0-70.0) % Lymphocytes % (Manual) 56.0 H (13.4-35.0) % Monocytes % (Manual) 8.0 H (0.0-7.3) % Basophils % (Manual) 2.0 H (0.0-1.8) % Seg Neutrophils # Man 1.2 L (1.8-7.7) K/mm3 Glucose 124 H (75-100) mg/dL POC Glucose 162 H (70-105) 06/14/19 06/14/19 Range/Units 07:45 11:41 WBC (4.5-11.0) K/mm3 RBC (3.65-5.03) M/mm3 Hgb (11.8-15.2) gm/dl Hct (35.5-45.6) % RDW (13.2-15.2) % Plt Count (140-440) K/mm3 Seg Neuts % (Manual) (40.0-70.0) % Lymphocytes % (Manual) (13.4-35.0) % Monocytes % (Manual) (0.0-7.3) % Basophils % (Manual) (0.0-1.8) % Seg Neutrophils # Man (1.8-7.7) K/mm3 Glucose (75-100) mg/dL POC Glucose 115 H 125 H (70-105)
[2019-06-14] MEDS: LANTUS SUB-Q SCH (22:04)
[2019-06-15] MEDS: UNASYN/NS 3 GM/100 ML 3 GM/100 ML BAG IV SCH ×2 (05:19→11:36)
[2019-06-15] MEDS: HumaLOG SUB-Q SCH ×4 (07:30→23:13)
[2019-06-15] MEDS: D5/0.45NS 1,000 ML IV SCH (09:50)
[2019-06-15] MEDS: SODIUM CHLORIDE FLUSH SYRINGE 10 ML IV SCH ×2 (09:51→23:19)
[2019-06-15] MEDS: PEPCID IV SCH ×2 (09:51→21:20)
--- NOTE | 2019-06-15 11:21 | Progress Note ---
Assessment and Plan Assessment and plan: Patient is a 53-year-old male with past medical history of diabetes mellitus and sacral ulcer just diagnosed a few weeks ago according to the patient was admitted to the [facility], operated by [facility] for diabetic coma. The patient who was in his normal usual state of health up until a few weeks ago when he went into a coma and was rapidly transported to [facility] where he was diagnosed with DKA. He spends about 3 days according to the patient in the hospital following that developed sacral ulcer. He reported that he was managed at the time and was discharged with home health. He reports that he has been on Lantus and has been adjusting his dose based on his blood sugar current recomm endations for his primary care physician. This morning he noted drainage from the sacral ulcer and promptly came to the hospital for evaluation. He reports Fever but unable to quantify it. He denies any chest pain nausea vomiting or diarrhea. He denies any fever at this time. CT pelvis: Decubitus Ulcer at the elvel of the coccyx without definite osteomyelitis. No drainable Fluid Collections is seen --Stage IV sacral decubitus ulcer; status post surgical debridement Surgery following ,continue wound care, IV antibiotics Asia Knight Awaiting wound VAC prior to discharge ID following advice to Continue IV antibiotics while inpatient Discharge on PO Keflex 500 mg QID plus doxycycline 100 mg BID for 5 days Mainstay of therapy is wound care and offloading along with glycemic control --2DM with controlled Blood glucose Accu-Chek sliding scale coverage and ADA diet and insulin as needed --SIRS as a result of Infected Pressure Ulcer Anemia --Obesity; BMI 36.8 Advise weight reduction when medically stable Monitor clinically and adjust management as needed Patient is medically stable for discharge Pending wound VAC, home wound care versus outpatient wound care Case management and social services manager assisting with discharge planning History Interval history: Patient seen and examined this morning medical records reviewed Patient has no new complaints Vital signs noted Hospitalist Physical - Constitutional Vitals: Temp Pulse Resp BP Pulse Ox 98.2 F 56 L 24 119/69 97 06/15/19 04:21 06/15/19 04:21 06/15/19 04:21 06/15/19 04:21 06/15/19 04:21 General appearance: Present: no acute distress, well-nourished - EENT Eyes: Present: PERRL, EOM intact - Neck Neck: Present: supple, normal ROM - Respiratory Respiratory effort: normal Respiratory: negative: diminished, rales, rhonchi, wheezing - Cardiovascular Rhythm: regular Heart Sounds: Present: S1 & S2 - Extremities Extremities: no ischemia, No edema - Abdominal General gastrointestinal: soft, non-tender, non-distended, normal bowel sounds - Integumentary Integumentary: Present: clear, warm - Psychiatric Psychiatric: appropriate mood/affect, cooperative - Neurologic Neurologic: moves all extremities - Additional findings Additional findings: Stage IV sacral decubitus ulcer; wound care Awaiting wound VAC prior to discharge Patient has no pain or source Multiple social issues Results - Labs CBC & Chem 7: 06/14/19 06:58 06/14/19 06:39 Labs: Laboratory Last Values WBC 4.0 K/mm3 (4.5-11.0) L 06/14/19 06:58 RBC 3.38 M/mm3 (3.65-5.03) L 06/14/19 06:58 Hgb 10.8 gm/dl (11.8-15.2) L 06/14/19 06:58 Hct 31.8 % (35.5-45.6) L 06/14/19 06:58 MCV 94 fl (84-94) 06/14/19 06:58 MCH 32 pg (28-32) 06/14/19 06:58 MCHC 34 % (32-34) 06/14/19 06:58 RDW 17.1 % (13.2-15.2) H 06/14/19 06:58 Plt Count 506 K/mm3 (140-440) H 06/14/19 06:58 Lymph % (Auto) Plasterer Stucco 06/14/19 06:58 [place] % (Auto) Plasterer Stucco 06/14/19 06:58 Eos % (Auto) Plasterer [employer]ucco 06/14/19 06:58 Baso % (Auto) Plasterer [employer]ucco 06/14/19 06:58 Lymph # Plasterer [employer]ucco 06/14/19 06:58 [place] # Plasterer [employer]ucco 06/14/19 06:58 Eos # Plasterer Stucco 06/14/19 06:58 Baso # Plasterer Stucco 06/14/19 06:58 Add Manual Diff Complete 06/14/19 06:58 Total Counted 100 06/14/19 06:58 Seg Neutrophils % Plasterer Stucco 06/14/19 06:58 Seg Neuts % (Manual) 29.0 % (40.0-70.0) L 06/14/19 06:58 Band Neutrophils % 0 % 06/14/19 06:58 Lymphocytes % (Manual) 56.0 % (13.4-35.0) H 06/14/19 06:58 Reactive Lymphs % (Man) 0 % 06/14/19 06:58 Monocytes % (Manual) 8.0 % (0.0-7.3) H 06/14/19 06:58 Eosinophils % (Manual) 4.0 % (0.0-4.3) 06/14/19 06:58 Basophils % (Manual) 2.0 % (0.0-1.8) H 06/14/19 06:58 Metamyelocytes % 1.0 % 06/14/19 06:58 Myelocytes % 0 % 06/14/19 06:58 Promyelocytes % 0 % 06/14/19 06:58 Blast Cells % 0 % 06/14/19 06:58 Nucleated RBC % Not Reportable 06/14/19 06:58 Seg Neutrophils # Plasterer Stucco 06/14/19 06:58 Seg Neutrophils # Man 1.2 K/mm3 (1.8-7.7) L 06/14/19 06:58 Band Neutrophils # 0.0 K/mm3 06/14/19 06:58 Lymphocytes # (Manual) 2.2 K/mm3 (1.2-5.4) 06/14/19 06:58 Abs React Lymphs (Man) 0.0 K/mm3 06/14/19 06:58 Monocytes # (Manual) 0.3 K/mm3 (0.0-0.8) 06/14/19 06:58 Eosinophils # (Manual) 0.2 K/mm3 (0.0-0.4) 06/14/19 06:58 Basophils # (Manual) 0.1 K/mm3 (0.0-0.1) 06/14/19 06:58 Metamyelocytes # 0.0 K/mm3 06/14/19 06:58 Myelocytes # 0.0 K/mm3 06/14/19 06:58 Promyelocytes # 0.0 K/mm3 06/14/19 06:58 Blast Cells # 0.0 K/mm3 06/14/19 06:58 WBC Morphology Not Reportable 06/14/19 06:58 Hypersegmented Neuts Not Reportable 06/14/19 06:58 Hyposegmented Neuts Not Reportable 06/14/19 06:58 Hypogranular Neuts Not Reportable 06/14/19 06:58 Smudge Cells Not Reportable 06/14/19 06:58 Toxic Granulation Not Reportable 06/14/19 06:58 Toxic Vacuolation Not Reportable 06/14/19 06:58 Dohle Bodies Not Reportable 06/14/19 06:58 Pelger-Huet Anomaly Not Reportable 06/14/19 06:58 Raymundo Rods Not Reportable 06/14/19 06:58 Platelet Estimate Cons 06/14/19 06:58 Clumped Platelets Not Reportable 06/14/19 06:58 Plt Clumps, EDTA Not Reportable 06/14/19 06:58 Large Platelets Few 06/14/19 06:58 Giant Platelets Not Reportable 06/14/19 06:58 Platelet Satelliting Not Reportable 06/14/19 06:58 Plt Morphology Comment Not Reportable 06/14/19 06:58 RBC Morphology Not Reportable 06/14/19 06:58 Dimorphic RBCs Not Reportable 06/14/19 06:58 Polychromasia Not Reportable 06/14/19 06:58 Hypochromasia 2+ 06/14/19 06:58 Poikilocytosis Not Reportable 06/14/19 06:58 Anisocytosis 1+ 06/14/19 06:58 Microcytosis 1+ 06/14/19 06:58 Macrocytosis Not Reportable 06/14/19 06:58 Spherocytes Not Reportable 06/14/19 06:58 Pappenheimer Bodies Not Reportable 06/14/19 06:58 Sickle Cells Not Reportable 06/14/19 06:58 Target Cells Not Reportable 06/14/19 06:58 Tear Drop Cells Not Reportable 06/14/19 06:58 Ovalocytes Not Reportable 06/14/19 06:58 Helmet Cells Not Reportable 06/14/19 06:58 [place] Bodies Not Reportable 06/14/19 06:58 Vance Rings Not Reportable 06/14/19 06:58 Lanny Cells Not Reportable 06/14/19 06:58 Bite Cells Not Reportable 06/14/19 06:58 Crenated Cell Not Reportable 06/14/19 06:58 Elliptocytes Not Reportable 06/14/19 06:58 Acanthocytes (Spur) Not Reportable 06/14/19 06:58 Rouleaux Not Reportable 06/14/19 06:58 Hemoglobin C Crystals Not Reportable 06/14/19 06:58 Schistocytes Not Reportable 06/14/19 06:58 Malaria parasites Not Reportable 06/14/19 06:58 Toni Bodies Not Reportable 06/14/19 06:58 Hem Pathologist Commnt No 06/14/19 06:58 PT 13.0 Sec. (12.2-14.9) 06/12/19 07:09 INR 1.01 (0.87-1.13) 06/12/19 07:09 APTT 27.7 Sec. (24.2-36.6) 06/12/19 07:09 VBG pH 7.338 (7.320-7.420) 06/12/19 07:09 Sodium 141 mmol/L (137-145) 06/14/19 06:39 Potassium 4.2 mmol/L (3.6-5.0) 06/14/19 06:39 Chloride 101.0 mmol/L (98-107) 06/14/19 06:39 Carbon Dioxide 25 mmol/L (22-30) 06/14/19 06:39 Anion Gap 19 mmol/L 06/14/19 06:39 BUN 13 mg/dL (9-20) 06/14/19 06:39 Creatinine 0.8 mg/dL (0.8-1.5) 06/14/19 06:39 Estimated GFR > 60 ml/min 06/14/19 06:39 BUN/Creatinine Ratio 16 % 06/14/19 06:39 Glucose 124 mg/dL (75-100) H 06/14/19 06:39 POC Glucose 122 (70-105) H 06/15/19 07:42 Hemoglobin A1c 9.5 % (4-6) H 06/12/19 08:12 Calcium 9.3 mg/dL (8.4-10.2) 06/14/19 06:39 Magnesium 1.80 mg/dL (1.7-2.3) 06/12/19 07:09 Total Bilirubin 0.20 mg/dL (0.1-1.2) 06/14/19 06:39 AST 15 units/L (5-40) 06/14/19 06:39 ALT 13 units/L (7-56) 06/14/19 06:39 Alkaline Phosphatase 46 units/L (35-129) 06/14/19 06:39 Total Creatine Kinase 60 units/L (55-170) 06/12/19 07:09 Total Protein 7.6 g/dL (6.3-8.2) 06/14/19 06:39 Albumin 4.0 g/dL (3.9-5) 06/14/19 06:39 Albumin/Globulin Ratio 1.1 % 06/14/19 06:39 Prealbumin 0.415 g/L (0.200-0.400) H 06/13/19 04:34 Active Medications - Current Medications Current Medications: Generic Name Dose Route Start Last Admin Trade Name Freq PRN Reason Stop Dose Admin Acetaminophen 650 mg 06/12/19 08:00 Tylenol PO Q4H PRN Pain MILD(1-3)/Fever >100.5/DOMINGO Albuterol 2.5 mg 06/12/19 08:00 Proventil IH Q4HRT PRN Shortness Of Breath Dextrose 50 ml 06/12/19 08:00 D50w (25gm) Syringe IV Q30MIN PRN Hypoglycemia Famotidine 20 mg 06/12/19 10:00 06/15/19 09:51 Pepcid IV 20 mg BID ANDREW Administration Dextrose/Sodium Chloride 1,000 mls @ 75 mls/hr 06/12/19 08:00 06/15/19 09:50 D5/0.45ns IV 75 mls/hr DIRECT ANDREW Administration Vancomycin HCl 1,500 mg/ 530 mls @ 333.333 mls/hr 06/13/19 00:00 06/14/19 23:50 Sodium Chloride IV 333.333 mls/hr Q12H ANDREW Administration Ampicillin Sodium/Sulbactam Sodium 3 gm in 100 mls @ 100 mls/hr 06/13/19 14:00 06/15/19 05:19 Unasyn/Ns 3 Gm/100 Ml IV 100 mls/hr Q6HR ANDREW Administration Protocol Insulin Glargine 15 units 06/13/19 22:00 06/14/19 22:04 Lantus SUB-Q 15 units QHS ANDREW Administration Insulin Human Lispro 0 unit 06/12/19 11:30 06/15/19 07:30 Humalog SUB-Q Not Given ACHS [facility] Protocol Morphine Sulfate 4 mg 06/12/19 22:59 Morphine IV Q4H PRN Pain , Severe (7-10) Ondansetron HCl 4 mg 06/12/19 08:00 Zofran IV Q8H PRN Nausea And Vomiting Sodium Chloride 10 ml 06/12/19 10:00 06/15/19 09:51 Sodium Chloride Flush Syringe 10 Ml IV 10 ml BID ANDREW Administration Sodium Chloride 10 ml 06/12/19 08:00 Sodium Chloride Flush Syringe 10 Ml IV PRN PRN LINE FLUSH Sodium Hypochlorite 1 applic 06/12/19 11:36 06/12/19 15:00 Dakin's Half Strength TP 1 appful Q12H PRN Administration Wound Care Nutrition/Malnutrition Assess - Dietary Evaluation Nutrition/Malnutrition Findings: Nutrition Notes Start: 06/12/19 16:58 Freq: Status: Active Protocol: Document 06/14/19 13:28 OH (Rec: 06/14/19 13:35 OH [id number]) Nutrition Notes Initial or Follow up Reassessment Current Diet cardiac/consistent CHO W/Alexandre bid Labs/Tests Reviewed Pertinent Medications Reviewed Height 5 ft 11 in Weight 107.7 kg [place] Body Weight (kg) 78.18 BMI 33.1 Subjective/Other Information F/U. Pt. sitting up in bed. Pt . answering questions appropriately. Pt. indicates he doesn't have insurance at the moment but will soon have insurance through [employer] benefits. Pt. reports he changed his diet to no beef/pork/chicken at the beginning of the year. Pt. verbalized understanding of the importance of monitoring bloodsugar levels/ dietary changes/attending MD appointments. Pt. has support system of daughter/mother. GI Symptoms None Current % PO Fair (50-74%) Minimum of two criteria No Is patient on ventilator? No Is Patient Ambulatory and/or Out of Bed No REE-([place]-confined to bed) 2348.556 Kcal/Kg value to use for calculation 17 Approximate Energy Requirements Using 1831 kcal/Kg Calculation Used for Recommendations Kcal/kg Additional Notes Protein Needs: 113-141g (1.2-1 .5g/kg 94kg adjBW) Fluid Needs: 1 ml/kcal Nutrition Intervention Change Diet Order: Continue current Teaching Recipient Patient Learning Readiness Good Teaching Methods Discussion Response to Teaching Return demonstration,Verbalize understanding Education Handouts Provided Reviewed w/pt the need to f/u w/restoration technician q 3 months. Educated pt on what/why hgba1c is important. Discussed adherence to dietary recommendations and continuous churn buttermaker health outcomes if bloodsugar levels continue to be elevated . Recommended pt establish a PCP/PORTABLE IRRIGATION OPERATOR as soon as possible. Suggested pt f/u w/ classes/clinical health education through [employer]/private insurance once established. Reviewed w/pt PRO/CHO combination at meals/snacks along w/fiber content of >3 grams/serving of CHO sources. Barriers to Learning Cultural,Environmental Goal #1 Meet at least 75% of calorie and protein needs via PO and ONS intakes Goal #2 Alexandre intake Anticipated Discharge Needs: Cardiac/Consistent CHO diet Follow-Up By: 06/18/19 Additional Comments Follow for PO and ONS intakes, necessity to continue ONS
--- NOTE | 2019-06-15 12:20 | Event Note ---
Date: 06/15/19 Informed by case management that patient is unfunded. Due to this he will not have have access to more than 3 home care visits and wound vac management will be difficult. Will continue dakins for 2-3 more days and then initiate wet to dry dressings daily at home. No indication for further debridement.
[2019-06-15] MEDS: VANCOMYCIN 1,500 MG in NACL 0.9% 500 ML 500 ML IV SCH (12:51)
[2019-06-15] MEDS: VIBRAMYCIN PO SCH ×2 (16:00→21:20)
--- NOTE | 2019-06-15 16:10 | Progress Note ---
Assessment and Plan Cultures: Wound culture 06/12/2019 with light growth of usual skin jana Assessment: 53 y/o male with history of diabetes who was admitted at [facility] for DKA 6 weeks ago and developed a sacral decubitus ulcer, Now with: 1) Stage IV sacral decubitus with cellulitis: no evidence of osteomyelitis or abscess on CT. Wound culture 06/12/2019 with usual skin jana. Patient underwent OR debridement. Wound culture 06/12/2019 with usual skin jana. ID consulted for management of sacral decubitus. 2) DM: continue glycemic control. Recommendations: Unasyn and Vancomycin discontinued. Started PO Keflex 500 mg QID plus doxycycline 100 mg BID for 5 days Mainstay of therapy is wound care and offloading along with glycemic control f/u final culture results Jinny Zuluaga MD, FACP [facility] C: [phone] O: [phone] F: [phone] Subjective Date of service: 06/15/19 Principal diagnosis: SIRS,Sacral Decubitus ulcer,Uncontrolled diabetes Interval history: No fever. Getting wound care. Has no complaints. Trying to offload wound as much as possible. Objective - Exam Narrative Exam: Physical Exam: Constitutional: Alert, cooperative. No acute distress Head, Ears, Nose: Normocephalic, atraumatic. External ears, nose normal Eyes: Conjunctivae/corneas clear. No icterus. No ptosis. Neck: Supple, no meningeal signs Cardiovascular: S1, S2 normal. Respiratory: Good air entry, clear to auscultation bilaterally GI: Soft, non-tender; bowel sounds normal. No peritoneal signs Musculoskeletal: No pedal edema, no cyanosis. Sacral decub with packing and dressing Skin: No rash or abscess Hem/Lymphatic: No palpable cervical or supraclavicular nodes. No lymphangitis Psych: Mood ok. Affect normal Neurological: Awake, alert, oriented. No gross abnormality - Constitutional Vitals: Vital Signs Temp Pulse Resp BP Pulse Ox 98.3 F 65 20 135/92 99 06/15/19 11:48 06/15/19 11:48 06/15/19 11:48 06/15/19 11:48 06/15/19 11:48 Temperature -Last 24 Hours Temperature 98.3 F Temperature 98.2 F Temperature 98.3 F Temperature 98.0 F - Labs CBC & Chem 7: 06/14/19 06:58 06/14/19 06:39 Labs: Abnormal lab results 06/14/19 06/14/19 06/15/19 Range/Units 17:04 21:07 07:42 POC Glucose 134 H 120 H 122 H (70-105)
[2019-06-15] MEDS: KEFLEX PO SCH (17:28)
[2019-06-15] MEDS: LANTUS SUB-Q SCH (23:19)
[2019-06-16] MEDS: D5/0.45NS 1,000 ML IV SCH (00:57)
[2019-06-16] MEDS: KEFLEX PO SCH ×3 (00:57→11:28)
[2019-06-16] MEDS: HumaLOG SUB-Q SCH ×3 (08:29→16:30)
[2019-06-16] MEDS ORDERED: PEPCID PO SCH (10:00)
[2019-06-16] MEDS: VIBRAMYCIN PO SCH (11:28)
[2019-06-16] MEDS: SODIUM CHLORIDE FLUSH SYRINGE 10 ML IV SCH (11:28)
--- NOTE | 2019-06-16 13:19 | Discharge Summary ---
Providers - Providers Date of Admission: 06/12/19 07:44 Date of discharge: 06/16/19 Attending physician: PAPA ORELLANA 06/12/19 Consult to Case Management [CONS] Routine Services Needed at Discharge: Social Psychologist Notified:: rufina Phone number called:: [phone] Was contact made?: Yes If yes, spoke with:: melissa Time called:: 09:31 06/12/19 06:45 Consult to Physician [CONS] Urgent Comment: Consulting Provider: SHERLY NINA Physician Instructions: Reason For Exam: infected wound Consult to Wound/ET Nurse [CONS] Stat Reason For Exam: wound eval 06/12/19 08:01 Consult to Dietitian/Nutrition [CONS] Routine Physician Instructions: Reason For Exam: Reason for Consult: Malnutrition 06/12/19 08:10 Consult to Physician [CONS] Routine Comment: Consulting Provider: DUARTE LYNN Physician Instructions: Reason For Exam: SACRAL ULCER 06/12/19 15:09 Consult to Case Management [CONS] Routine Services Needed at Discharge: Wound Vac Notified:: rufina Primary care physician: STUDENT LIFE DEAN Hospitalization Condition: Good Hospital course: Patient is a 53-year-old male with past medical history of diabetes mellitus and sacral ulcer just diagnosed a few weeks ago according to the patient was admitted to the [facility] for diabetic coma. The patient who was in his normal usual state of health up until a few weeks ago when he went into a coma and was rapidly transported to [facility] where he was diagnosed with DKA. He spends about 3 days according to the patient in the hospital following that developed sacral ulcer. He reported that he was managed at the time and was discharged with home health. He reports that he has been on Lantus and has been adjusting his dose based on his blood sugar current recommendations for his primary care physician. This morning he noted drainage from the sacral ulcer and promptly came to the hospital for evaluation. He reports Fever but unable to quantify it. He denies any chest pain nausea vomiting or diarrhea. He denies any fever at this time. CT pelvis: Decubitus Ulcer at the elvel of the coccyx without definite osteomyelitis. No drainable Fluid Collections is seen --Stage IV sacral decubitus ulcer; status post surgical debridement Surgery following ,continue wound care, IV antibiotics Asia Knight ID following advice to Continue IV antibiotics while inpatient Discharge on PO Keflex 500 mg QID plus doxycycline 100 mg BID for 5 days Mainstay of therapy is wound care and offloading along with glycemic control --2DM with controlled Blood glucose Accu-Chek sliding scale coverage and ADA diet and insulin as needed --SIRS as a result of Infected Pressure Ulcer Anemia --Obesity; BMI 36.8 Advise weight reduction when medically stable Monitor clinically and adjust management as needed Patient is medically stable for discharge Pending wound VAC, home wound care versus outpatient wound care Case management and clinical social work therapist assisting with discharge planning Disposition: [id number]/[place]-06 HOME UNDER HOME [facility] Time spent for discharge: 32 min Core Measure Documentation - Palliative Care Palliative Care/ Comfort Measures: Not Applicable - Core Measures Any of the following diagnoses?: none Exam - Constitutional Vitals: Temp Pulse Resp BP Pulse Ox 98.6 F 62 18 149/88 99 06/16/19 11:42 06/16/19 11:42 06/16/19 11:42 06/16/19 11:42 06/16/19 11:42 General appearance: Present: no acute distress, well-nourished - EENT Eyes: Present: PERRL, EOM intact - Neck Neck: Present: supple, normal ROM - Respiratory Respiratory effort: normal Respiratory: bilateral: diminished, negative: rales, rhonchi, wheezing - Cardiovascular Rhythm: regular Heart Sounds: Present: S1 & S2 - Extremities Extremities: no ischemia, No edema - Abdominal General gastrointestinal: Present: soft, non-tender, non-distended, normal bowel sounds - Integumentary Integumentary: Present: clear, warm - Musculoskeletal Musculoskeletal: strength equal bilaterally, generalized weakness - Psychiatric Psychiatric: appropriate mood/affect, cooperative - Neurologic Neurologic: moves all extremities Plan Activity: no restrictions Diet: diabetic Wound: per wound nurse instructions Additional Instructions: Advised to follow instructions per the wound care. adjust Lantus dose as needed based on blood sugars. Advised to comply with diabetic diet, exercise, follow-up visits Follow up with: PRIMARY CARE, [Primary Care Provider] - 3-5 Days SHERLY NINA DO [Staff Physician] - 7 Days Prescriptions: Sodium Hypochlorite [Dakin's Full Strength] 473 ml IR BID #2 bottle cephALEXin [Keflex] 500 mg PO Q6HR #20 capsule Insulin Glargine,Hum.rec.anlog [Lantus Solostar] 35 units SUB-Q QHS #2 pen DOXYCYCLINE Hyclate [Vibramycin CAP] 100 mg PO BID #10 capsule
--- NOTE | 2019-06-16 15:25 | Progress Note ---
Assessment and Plan Cultures: Wound culture 06/12/2019 with light growth of usual skin jana Assessment: 53 y/o male with history of diabetes who was admitted at [facility] for DKA 6 weeks ago and developed a sacral decubitus ulcer, Now with: 1) Stage IV sacral decubitus with cellulitis: no evidence of osteomyelitis or abscess on CT. Wound culture 06/12/2019 with usual skin jana. Patient underwent OR debridement. Wound culture 06/12/2019 with usual skin jana. ID consulted for management of sacral decubitus. 2) DM: continue glycemic control. Recommendations: Complete PO Keflex 500 mg QID plus doxycycline 100 mg BID for 4 more days Mainstay of therapy is wound care and offloading along with glycemic control Jinny Zuluaga MD, FACP [facility] ([facility] C: [phone] O: [phone] F: [phone] Subjective Date of service: 06/16/19 Principal diagnosis: SIRS,Sacral Decubitus ulcer,Uncontrolled diabetes Interval history: no fever. No new complaints. Getting discharged today. Objective - Exam Narrative Exam: Physical Exam: Constitutional: Alert, cooperative. No acute distress Head, Ears, Nose: Normocephalic, atraumatic. External ears, nose normal Eyes: Conjunctivae/corneas clear. No icterus. No ptosis. Neck: Supple, no meningeal signs Cardiovascular: S1, S2 normal. Respiratory: Good air entry, clear to auscultation bilaterally GI: Soft, non-tender; bowel sounds normal. No peritoneal signs Musculoskeletal: No pedal edema, no cyanosis. Sacral decub with packing and dressing Skin: No rash or abscess. Sacral wound + Hem/Lymphatic: No palpable cervical or supraclavicular nodes. No lymphangitis Psych: Mood ok. Affect normal Neurological: Awake, alert, oriented. No gross abnormality - Constitutional Vitals: Vital Signs Temp Pulse Resp BP Pulse Ox 98.6 F 62 18 149/88 99 06/16/19 11:42 06/16/19 11:42 06/16/19 11:42 06/16/19 11:42 06/16/19 11:42 Temperature -Last 24 Hours Temperature 98.6 F Temperature 98.7 F Temperature 98.6 F - Labs CBC & Chem 7: 06/14/19 06:58 06/14/19 06:39 Labs: Abnormal lab results 06/15/19 06/16/19 06/16/19 Range/Units 21:34 08:11 11:34 POC Glucose 110 H 109 H 114 H (70-105)
[2019-06-16 16:57] VITALS: BP 143/84
== END 2019-06-16 16:30 | disposition home health service (06) | DRG 570 ==
LOC: ED 01:04 → 3A 07:44 → OBSVTOIN 07:44
PROVIDERS: ADMIT Internal Medicine; ATTEND Internal Medicine
PROC: 0JB70ZZ Excision of Back Subcutaneous Tissue and Fascia, Open Approach (ICD-10-PCS; principal; 2019-06-12)
DX: L03.317 Cellulitis of buttock (principal); L89.154 Pressure ulcer of sacral region, stage 4; R65.10 Systemic inflammatory response syndrome (SIRS) of non-infectious origin without acute organ dysfunction; E11.9 Type 2 diabetes mellitus without complications; D64.9 Anemia, unspecified; E66.9 Obesity, unspecified; Z68.36 Body mass index [BMI] 36.0-36.9, adult; Z71.3 Dietary counseling and surveillance; Z79.899 Other long term (current) drug therapy; Z79.4 Long term (current) use of insulin
CPT/HCPCS: 36415; 72192; 80048; 80053; 80202; 82550; 82805; 82962; 83036; 83735; 84134; 85007; 85025; 85610; 85730; 87116; 94640; 96365; 96366; 96367; G0378; A6260; J0295; J0692; J1815; J2543; J3370; J7040

== ENCOUNTER 2021-04-04 12:53 | Inpatient (IN) | payer OTHER, SELFPAY ==
[2021-04-04] MEDS ORDERED: ACETAMINOPHEN 325 MG TAB PO ONE (13:04)
[2021-04-04] MEDS ORDERED: dexAMETHasone 4 MG/ML VIAL IV ONE (13:04)
[2021-04-04] MEDS ORDERED: AZITHROMYCIN/NS 500 MG/250 ML 500 MG/250 ML BAG IV ONE (13:04)
[2021-04-04] MEDS ORDERED: cefTRIAXone/NS 1 GM/50 ML 1 GM/50 ML BAG IV ONE (13:04)
[2021-04-04] MEDS ORDERED: SODIUM CHLORIDE 0.9% 1000 ML 1,000 ML IV ONE (13:04)
--- NOTE | 2021-04-04 13:09 | Event Note ---
ED Screening Note ED Screening Note: Patient is a 55-year-old male who presents emergency room with complaints of URI symptoms that began a week ago He states that shortness of breath significantly worsened this morning He has associated cough, chest pain, loose stools He denies any vomiting or diarrhea or leg swelling Past medical history of diabetes He is a non-smoker He recently traveled to [place] He denies any known sick contacts He has not been vaccinated for COVID-19 Has not been tested for COVID-19 since becoming ill This initial assessment/diagnostic orders/clinical plan/treatment(s) is/are subject to change based on patients health status, clinical progression and re- assessment by fellow clinical providers in the ED. Further treatment and workup at subsequent clinical providers discretion. Patient/guardian urged not to elope from the ED as their condition may be serious if not clinically assessed and managed. Initial orders include: Patient's oxygen saturation is 87% on room air, suspected Covid, patient will need admission, pt placed on oxygen Covid order set placed Charge nurse Aria, informed that patient needs room KRISHNA
[2021-04-04 13:34] LABS: Basophils % (Auto) 0.4 % (0.0-1.8); Hematocrit 40.1 % (35.5-45.6); Hemoglobin 13.3 gm/dl (11.8-15.2); Lymphocytes # (Auto) 1.1 K/mm3 (1.2-5.4); Mean Corpuscular HGB Conc 33 % (32-34); Mean Corpuscular Volume 94 fl (84-94); Monocytes # (Auto) 0.4 K/mm3 (0.0-0.8); Monocytes % (Auto) 6.7 % (0.0-7.3); Platelet Count 340 K/mm3 (140-440); Red Blood Count 4.26 M/mm3 (3.65-5.03); Red Cell Distribution Width 14.2 % (13.2-15.2)
--- NOTE | 2021-04-04 13:44 | XRay Report ---
CHEST 2 VIEWS INDICATION: sob, fever. COMPARISON: None. FINDINGS: Support devices: None. Heart: Within normal limits. Lungs/Pleura: Bilateral patchy infiltrate right greater than left. No significant pleural effusion. IMPRESSION: Bilateral pneumonia. Signer Name: Samuel Hwang MD Signed: 04/04/2021 1:40 PM Workstation Name: [id number]
[2021-04-04 14:00] LABS: Alanine Aminotransferase 6 units/L (7-56); Albumin 2.7 g/dL (3.9-5); Blood Urea Nitrogen 5 mg/dL (9-20); Calcium 8.2 mg/dL (8.4-10.2); Hemolysis Index 150
[2021-04-04 14:05] LABS: BUN/Creatinine Ratio 7
--- NOTE | 2021-04-04 17:07 | Emergency Department Report ---
ED Shortness of Breath HPI - General Chief Complaint: Dyspnea/Respdistress Stated Complaint: DIFFICULTY BREATHING Time Seen by Provider: 04/04/21 13:04 Source: patient, family Mode of arrival: Wheelchair Limitations: No Limitations - History of Present Illness Initial Comments: 55-year-old male, history of diabetes, presents to ED with shortness of breath. Patient states over the last week, he has had chills, cough, shortness of breath. Patient reports his breathing worsened this morning. Patient denies any known contacts with COVID-19. Patient states he has NOT been vaccinated against COVID-19. Patient has not been tested for COVID-19. MD Complaint: shortness of breath -: week(s) (1) Severity: moderate Consistency: constant Improves With: rest Worsens With: exertion Context: recent URI Associated Symptoms: cough Treatments Prior to Arrival: none - Related Data Home Oxygen Therapy: No Previous Rx's Medication Instructions Recorded Last Taken Type DOXYCYCLINE Hyclate [Vibramycin 100 mg PO BID #10 capsule 06/16/19 Unknown Rx CAP] Insulin Glargine,Hum.rec.anlog 35 units SUB-Q QHS #2 pen 06/16/19 Unknown Rx [Lantus Solostar] Sodium Hypochlorite [Dakin's Full 473 ml IR BID #2 bottle 06/16/19 Unknown Rx Strength] cephALEXin [Keflex] 500 mg PO Q6HR #20 capsule 06/16/19 Unknown Rx Allergies Allergy/AdvReac Type Severity Reaction Status Date / Time No Known Allergies Allergy Unverified 06/12/19 07:02 ED Review of Systems ROS: Stated complaint: DIFFICULTY BREATHING Other details as noted in HPI Comment: All other systems reviewed and negative Constitutional: chills. denies: fever ENT: other (Denies loss of smell or taste) Respiratory: cough, shortness of breath ED Past Medical Hx - Past Medical History Previous Medical History?: Yes Hx Diabetes: Yes - Surgical History Past Surgical History?: No - Social History Smoking Status: Former Smoker Substance Use Type: None - Medications Home Medications: Home Medications Medication Instructions Recorded Confirmed Last Taken Type DOXYCYCLINE Hyclate [Vibramycin 100 mg PO BID #10 capsule 06/16/19 Unknown Rx CAP] Insulin Glargine,Hum.rec.anlog 35 units SUB-Q QHS #2 pen 06/16/19 Unknown Rx [Lantus Solostar] Sodium Hypochlorite [Dakin's Full 473 ml IR BID #2 bottle 06/16/19 Unknown Rx Strength] cephALEXin [Keflex] 500 mg PO Q6HR #20 capsule 06/16/19 Unknown Rx ED Physical Exam - General Limitations: No Limitations General appearance: alert - Head Head exam: Present: atraumatic, normocephalic - Eye Eye exam: Present: normal appearance, EOMI - ENT ENT exam: Present: mucous membranes moist - Neck Neck exam: Present: normal inspection - Respiratory Respiratory exam: Present: respiratory distress, other (Tachypnea present) - Cardiovascular Cardiovascular Exam: Present: regular rate, normal rhythm - GI/Abdominal GI/Abdominal exam: Present: soft. Absent: distended, tenderness - Extremities Exam Extremities exam: Present: normal inspection - Neurological Exam Neurological exam: Present: alert, oriented X3 - Psychiatric Psychiatric exam: Present: normal affect, normal mood - Skin Skin exam: Present: warm, dry, intact, normal color ED Course Vital Signs 04/04/21 04/04/21 04/04/21 13:02 16:30 16:45 Temperature 100.4 F H Pulse Rate 94 H 61 70 Respiratory 16 28 H 31 H Rate Blood Pressure 133/77 Blood Pressure 174/92 [Left] O2 Sat by Pulse 88 93 92 Oximetry 04/04/21 04/04/21 04/04/21 17:01 17:31 18:01 Temperature Pulse Rate 72 69 70 Respiratory 14 38 H 34 H Rate Blood Pressure 134/84 129/76 128/87 Blood Pressure [Left] O2 Sat by Pulse 95 96 97 Oximetry 04/04/21 04/04/21 18:31 18:53 Temperature Pulse Rate 72 Respiratory 49 H Rate Blood Pressure 113/64 Blood Pressure [Left] O2 Sat by Pulse 95 96 Oximetry ED Medical Decision Making - Lab Data Result diagrams: 04/04/21 13:18 04/04/21 13:18 - Radiology Data Radiology results: report reviewed, image reviewed - Medical Decision Making 55-year-old male presents to ED with Covid-like symptoms. O2 sats 88% on room air. Patient placed on 5 L O2. Chest x-ray shows bilateral pneumonia. Blood cultures drawn. Patient given Rocephin, azithromycin, Decadron. Patient will be admitted to hospitalist, Dr. Woo, for further management. - Differential Diagnosis Pneumonia, COVID-19 Critical Care Time: Yes Critical care time in (mins) excluding proc time.: 35 Critical care attestation.: If time is entered above; I have spent that time in minutes in the direct care of this critically ill patient, excluding procedure time. Critical Care Time: 35 min ED Disposition Clinical Impression: Pneumonia, Sepsis, Acute respiratory failure with hypoxia, Suspected 2019 novel coronavirus infection Disposition: 09 OP ADMIT IP TO THIS HOSP Is pt being admited?: Yes Condition: Stable Time of Disposition: 17:08
--- NOTE | 2021-04-04 20:41 | History and Physical Report ---
History of Present Illness Date of examination: 04/04/21 Date of admission: 04/04/21 17:08 Chief complaint: Shortness of breath for 1 week History of present illness: 55-year-old male with history of insulin-dependent diabetes and Covid unvaccinated associated with skepticism comes in for shortness of breath for the last 1 week. Patient denied chills dry cough and shortness of breath. Shortness of breath worsened this morning. Denies contact with any COVID-19 patient. Patient has not tested for COVID-19. Gets easily fatigued. His oxygen saturations were around 88% on room air. Now on 2 L nasal cannula oxygen. Patient also has body aches. Also loss of taste. - Past Medical History Previous Medical History?: Yes --Diabetes: Yes - Surgical History Past Surgical History?: No - Social History Smoking Status: Former Smoker Substance Use Type: None -Family history Htn - Medications Home Medications: Home Medications Medication Instructions Recorded Confirmed Last Taken Type DOXYCYCLINE Hyclate [Vibramycin 100 mg PO BID #10 capsule 06/16/19 Unknown Rx CAP] Insulin Glargine,Hum.rec.anlog 35 units SUB-Q QHS #2 pen 06/16/19 Unknown Rx [Lantus Solostar] Sodium Hypochlorite [Dakin's Full 473 ml IR BID #2 bottle 06/16/19 Unknown Rx Strength] cephALEXin [Keflex] 500 mg PO Q6HR #20 capsule 06/16/19 Unknown Rx Review of Systems ROS: Constitutional generalized weakness HEENT loss of taste Neck no neck stiffness no lymph gland enlargement Chest and lungs shortness of breath for 1 week CVS no chest pain no diaphoresis no palpitations GI no nausea no vomiting no diarrhea Genitourinary system no dysuria no flank pain Musculoskeletal system muscle aches [employer] no syncope no seizures Skin no rash no itching Psychiatric no depression no homicidal or suicidal tendencies Hematologic no lymphedema or bruising Endocrine no polydipsia no polyuria no cold intolerance no heat intolerance Medications and Allergies Allergies Allergy/AdvReac Type Severity Reaction Status Date / Time No Known Allergies Allergy Unverified 06/12/19 07:02 Home Medications Medication Instructions Recorded Confirmed Last Taken Type DOXYCYCLINE Hyclate [Vibramycin 100 mg PO BID #10 capsule 06/16/19 Unknown Rx CAP] Insulin Glargine,Hum.rec.anlog 35 units SUB-Q QHS #2 pen 06/16/19 Unknown Rx [Lantus Solostar] Sodium Hypochlorite [Dakin's Full 473 ml IR BID #2 bottle 06/16/19 Unknown Rx Strength] cephALEXin [Keflex] 500 mg PO Q6HR #20 capsule 06/16/19 Unknown Rx Exam - Physical Exam Narrative exam: Patient on 2 L nasal cannula oxygen - Constitutional Vitals: Temp Pulse Resp BP Pulse Ox 98.1 F 65 22 130/54 96 04/04/21 19:45 04/04/21 20:01 04/04/21 19:45 04/04/21 20:01 04/04/21 20:01 General appearance: Present: mild distress, well-nourished - EENT Eyes: Present: PERRL ENT: hearing intact, clear oral mucosa - Neck Neck: Present: supple, normal ROM - Respiratory Respiratory effort: normal Respiratory: bilateral: CTA - Cardiovascular Heart rate: 98 Rhythm: regular Heart Sounds: Present: S1 & S2. Absent: rub, click - Extremities Extremities: pulses symmetrical, No edema Peripheral Pulses: within normal limits - Abdominal General gastrointestinal: Present: soft, non-tender, non-distended, normal bowel sounds Male genitourinary: Present: normal - Integumentary Integumentary: Present: clear, warm, dry - Musculoskeletal Musculoskeletal: gait normal, strength equal bilaterally - Psychiatric Psychiatric: appropriate mood/affect, intact judgment & insight - Neurologic Neurologic: CNII-XII intact, moves all extremities - Allied Health Allied health notes reviewed: nursing, case management HEART Score - HEART Score Troponin: Troponin T < 0.010 ng/mL (0.00-0.029) 04/04/21 14:13 Results - Labs CBC & Chem 7: 04/05/21 06:16 04/04/21 13:18 Labs: Laboratory Last Values WBC 6.1 K/mm3 (4.5-11.0) 04/04/21 13:18 RBC 4.26 M/mm3 (3.65-5.03) 04/04/21 13:18 Hgb 13.3 gm/dl (11.8-15.2) 04/04/21 13:18 Hct 40.1 % (35.5-45.6) 04/04/21 13:18 MCV 94 fl (84-94) 04/04/21 13:18 MCH 31 pg (28-32) 04/04/21 13:18 MCHC 33 % (32-34) 04/04/21 13:18 RDW 14.2 % (13.2-15.2) 04/04/21 13:18 Plt Count 340 K/mm3 (140-440) 04/04/21 13:18 Lymph % (Auto) 18.0 % (13.4-35.0) 04/04/21 13:18 [place] % (Auto) 6.7 % (0.0-7.3) 04/04/21 13:18 Eos % (Auto) 0.0 % (0.0-4.3) 04/04/21 13:18 Baso % (Auto) 0.4 % (0.0-1.8) 04/04/21 13:18 Lymph # (Auto) 1.1 K/mm3 (1.2-5.4) L 04/04/21 13:18 [place] # (Auto) 0.4 K/mm3 (0.0-0.8) 04/04/21 13:18 Eos # (Auto) 0.0 K/mm3 (0.0-0.4) 04/04/21 13:18 Baso # (Auto) 0.0 K/mm3 (0.0-0.1) 04/04/21 13:18 Seg Neutrophils % 74.9 % (40.0-70.0) H 04/04/21 13:18 Seg Neutrophils # 4.6 K/mm3 (1.8-7.7) 04/04/21 13:18 D-Dimer 6891.55 ng/mlDDU (0-234) H 04/04/21 13:18 Sodium 132 mmol/L (137-145) L 04/04/21 13:18 Potassium 4.8 mmol/L (3.6-5.0) 04/04/21 13:18 Chloride 95.0 mmol/L (98-107) L 04/04/21 13:18 Carbon Dioxide 13 mmol/L (22-30) L 04/04/21 13:18 Anion Gap 29 mmol/L 04/04/21 13:18 BUN 5 mg/dL (9-20) L 04/04/21 13:18 Creatinine 0.7 mg/dL (0.8-1.3) L 04/04/21 13:18 Estimated GFR > 60 ml/min 04/04/21 13:18 BUN/Creatinine Ratio 7 % 04/04/21 13:18 Glucose 241 mg/dL (75-100) H 04/04/21 13:18 Lactic Acid 1.80 mmol/L (0.7-2.0) 04/04/21 13:18 Calcium 8.2 mg/dL (8.4-10.2) L 04/04/21 13:18 Ferritin 916.4 ng/mL (30.0-300.0) H 04/04/21 13:18 Total Bilirubin 0.30 mg/dL (0.1-1.2) 04/04/21 13:18 AST 29 units/L (5-40) 04/04/21 13:18 ALT 6 units/L (7-56) L 04/04/21 13:18 Alkaline Phosphatase 73 units/L (35-129) 04/04/21 13:18 Lactate Dehydrogenase 546 units/L (91-180) H 04/04/21 13:18 Troponin T < 0.010 ng/mL (0.00-0.029) 04/04/21 14:13 C-Reactive Protein 28.00 mg/dL (0.00-1.30) H 04/04/21 13:18 Total Protein 6.8 g/dL (6.3-8.2) 04/04/21 13:18 Albumin 2.7 g/dL (3.9-5) L 04/04/21 13:18 Albumin/Globulin Ratio 0.7 % 04/04/21 13:18 Procalcitonin 0.05 ng/mL (<0.15) 04/04/21 13:18 Short CBC 04/04/21 04/05/21 Range/Units 13:18 06:16 WBC 6.1 4.0 L (4.5-11.0) K/mm3 Hgb 13.3 12.3 (11.8-15.2) gm/dl Hct 40.1 36.5 (35.5-45.6) % Plt Count 340 270 (140-440) K/mm3 BMP 04/04/21 04/05/21 13:18 06:16 Sodium 132 L 134 L Potassium 4.8 5.0 Chloride 95.0 L 94.7 L Carbon Dioxide 13 L 19 L BUN 5 L 13 Creatinine 0.7 L 0.8 Glucose 241 H 382 H Calcium 8.2 L 9.2 Cardiac Enzymes 04/04/21 Range/Units 14:13 Troponin T < 0.010 (0.00-0.029) ng/mL Liver Function 04/04/21 04/05/21 Range/Units 13:18 06:16 Total Bilirubin 0.30 0.30 (0.1-1.2) mg/dL AST 29 18 (5-40) units/L ALT 6 L 6 L (7-56) units/L Alkaline Phosphatase 73 73 (35-129) units/L Albumin 2.7 L 2.9 L (3.9-5) g/dL Microbiology: Microbiology 04/04/21 13:18 Peripheral/Venous Blood Culture - Preliminary Culture in Progress 04/04/21 13:18 Peripheral/Venous Blood Culture - Preliminary Culture in Progress - Imaging and Cardiology Chest x-ray: report reviewed (Bilateral pneumonia) Assessment and Plan Advance Directives: Yes (Full code) VTE prophylaxis?: Chemical Plan of care discussed with patient/family: Yes - Patient Problems (1) Acute respiratory failure with hypoxia Current Visit: Yes Status: Acute Plan to address problem: Patient saturations were 88% on room air Patient initiated on 2 L of nasal cannula oxygen Possible Covid pneumonia Patient counseled about Covid vaccination Adjust oxygen supplementation as necessary (2) SIRS (systemic inflammatory response syndrome) Current Visit: Yes Status: Acute Plan to address problem: All inflammatory markers including D-dimer and CRP lactate dehydrogenase and ferritin are elevated IV Decadron and IV antibiotics for now (3) Bilateral pneumonia Current Visit: Yes Status: Acute Plan to address problem: Patient initiated on Zithromax and ceftriaxone ID consult requested (4) Suspected 2019 novel coronavirus infection Current Visit: Yes Status: Acute Plan to address problem: Coronavirus PCR in a.m. (5) Insulin dependent diabetes mellitus Current Visit: Yes Status: Acute Plan to address problem: Patient on high-dose sliding scale coverage and Lantus (6) Hyponatremia Current Visit: Yes Status: Acute Plan to address problem: IV fluids for 10 hours of normal saline (7) Malnutrition Current Visit: Yes Status: Chronic Qualifiers: Protein-calorie malnutrition severity: moderate Plan to address problem: Albumin level of 2.7 Dietary supplements initiated (8) DVT prophylaxis Current Visit: Yes Status: Acute Plan to address problem: On Lovenox and GI prophylaxis
[2021-04-04] MEDS ORDERED: ONDANSETRON 4 MG/2 ML INJ IV PRN (20:44)
[2021-04-04] MEDS ORDERED: ACETAMINOPHEN 325 MG TAB PO PRN (20:44)
[2021-04-04] MEDS ORDERED: SODIUM CHLORIDE 0.9% 1000 ML 1,000 ML IV SCH (20:45)
[2021-04-04] MEDS ORDERED: HYDROmorphone 1 MG/1 ML INJ IV PRN (20:50)
[2021-04-04] MEDS ORDERED: METOCLOPRAMIDE 10 MG/2 ML INJ IV PRN (20:50)
[2021-04-04] MEDS ORDERED: oxyCODONE /ACETAMINOPHEN 5-325MG TAB PO PRN (20:50)
[2021-04-04] MEDS ORDERED: NON-FORMULARY EACH (Insulin Glargine,Hum.Rec.Anlog [Lantus Solostar] 100 UNIT/ML Insuln.Pe SUB-Q SCH (22:00)
[2021-04-04] MEDS ORDERED: INSULIN GLARGINE 100 UNITS/ML SUB-Q SCH (22:00)
[2021-04-04] MEDS: FAMOTIDINE 20 MG TAB PO SCH (22:26)
[2021-04-04] MEDS: ENOXAPARIN 40 MG/0.4 ML INJ SUB-Q SCH (22:26)
[2021-04-04] MEDS: INSULIN LISPRO 100 UNIT/ML SUB-Q SCH (22:40)
[2021-04-05 06:57] LABS: Hematocrit 36.5 % (35.5-45.6); Hemoglobin 12.3 gm/dl (11.8-15.2); Mean Corpuscular HGB Conc 34 % (32-34); Mean Corpuscular Volume 94 fl (84-94); Platelet Count 270 K/mm3 (140-440); Red Cell Distribution Width 13.8 % (13.2-15.2)
[2021-04-05 07:06] LABS: Alanine Aminotransferase 6 units/L (7-56); Albumin 2.9 g/dL (3.9-5); BUN/Creatinine Ratio 16; Blood Urea Nitrogen 13 mg/dL (9-20); Calcium 9.2 mg/dL (8.4-10.2); Hemolysis Index 6
[2021-04-05] MEDS ORDERED: AZITHROMYCIN/NS 500 MG/250 ML 500 MG/250 ML BAG IV SCH (10:00)
[2021-04-05] MEDS ORDERED: cefTRIAXone/NS 2 GM/100 ML 2 GM/100 ML BAG IV SCH (10:00)
[2021-04-05] MEDS: CHOLECALCIFEROL (VIT D3) 5,000 UNIT TAB PO SCH (10:10)
[2021-04-05] MEDS: dexAMETHasone 4 MG/ML VIAL IV SCH (10:10)
[2021-04-05] MEDS: ASCORBIC ACID 500 MG TAB PO SCH ×2 (10:10→22:41)
[2021-04-05] MEDS: FAMOTIDINE 20 MG TAB PO SCH ×2 (10:10→22:41)
[2021-04-05] MEDS: ZINC SULFATE 220 MG CAP PO SCH ×2 (10:10→22:41)
--- NOTE | 2021-04-05 11:55 | Progress Note ---
Assessment and Plan Assessment and plan: (1) Acute respiratory failure with hypoxia Current Visit: Yes Status: Acute Plan to address problem: Patient saturations were 88% on room air Patient initiated on 2 L of nasal cannula oxygen Possible Covid pneumonia Patient counseled about Covid vaccination Adjust oxygen supplementation as necessary (2) SIRS (systemic inflammatory response syndrome) Current Visit: Yes Status: Acute Plan to address problem: All inflammatory markers including D-dimer and CRP lactate dehydrogenase and ferritin are elevated IV Decadron and IV antibiotics for now (3) Bilateral pneumonia Current Visit: Yes Status: Acute Plan to address problem: Patient initiated on Zithromax and ceftriaxone ID consult requested (4) Suspected 2019 novel coronavirus infection Current Visit: Yes Status: Acute Plan to address problem: Coronavirus PCR in a.m. (5) Insulin dependent diabetes mellitus Current Visit: Yes Status: Acute Plan to address problem: Patient on high-dose sliding scale coverage and Lantus (6) Hyponatremia Current Visit: Yes Status: Acute Plan to address problem: IV fluids for 10 hours of normal saline (7) Malnutrition Current Visit: Yes Status: Chronic Qualifiers: Protein-calorie malnutrition severity: moderate Plan to address problem: Albumin level of 2.7 Dietary supplements initiated (8) DVT prophylaxis Current Visit: Yes Status: Acute Plan to address problem: On Lovenox and GI prophylaxis 04/05/21 Patient with acute respiratoory failure secondary to bilateral pneumonia. He is PUI to r/o Covid-19 infection. Diabetes uncontrolled. Bld glucose 538 with A1C of 18.7. Will Increase lantus to 45 Units subcut q hs Give Humalog 16 Units subcut now History Interval history: shortness of breath X 1 week Hospitalist Physical - Physical exam Narrative exam: Gen:Not in acute distress, lying in bed HEENT:Normocephalic, atraumatic Neck:supple, no JVD Lungs: Bilateral rales, no rhonchi Heart:S1 and S2 reg, no murmurs, rubs or gallop Abd:Soft, non tender, non distended, normal bowel sounds Ext:No edema. no clubbing, no cyanosis Neuro:awake,alert, oriented x 3, moves all ext - Constitutional Vitals: Temp Pulse Resp BP Pulse Ox 98.1 F 55 L 15 110/65 98 04/04/21 19:45 04/05/21 00:31 04/04/21 22:31 04/05/21 00:31 04/05/21 03:10 General appearance: Present: mild distress, well-nourished HEART Score - HEART Score Troponin: Troponin T < 0.010 ng/mL (0.00-0.029) 04/04/21 14:13 Results - Labs CBC & Chem 7: 04/05/21 06:16 04/05/21 06:16 Labs: Laboratory Last Values WBC 4.0 K/mm3 (4.5-11.0) L 04/05/21 06:16 RBC 3.90 M/mm3 (3.65-5.03) 04/05/21 06:16 Hgb 12.3 gm/dl (11.8-15.2) 04/05/21 06:16 Hct 36.5 % (35.5-45.6) 04/05/21 06:16 MCV 94 fl (84-94) 04/05/21 06:16 MCH 32 pg (28-32) 04/05/21 06:16 MCHC 34 % (32-34) 04/05/21 06:16 RDW 13.8 % (13.2-15.2) 04/05/21 06:16 Plt Count 270 K/mm3 (140-440) 04/05/21 06:16 Lymph % (Auto) 18.0 % (13.4-35.0) 04/04/21 13:18 [place] % (Auto) 6.7 % (0.0-7.3) 04/04/21 13:18 Eos % (Auto) 0.0 % (0.0-4.3) 04/04/21 13:18 Baso % (Auto) 0.4 % (0.0-1.8) 04/04/21 13:18 Lymph # (Auto) 1.1 K/mm3 (1.2-5.4) L 04/04/21 13:18 [place] # (Auto) 0.4 K/mm3 (0.0-0.8) 04/04/21 13:18 Eos # (Auto) 0.0 K/mm3 (0.0-0.4) 04/04/21 13:18 Baso # (Auto) 0.0 K/mm3 (0.0-0.1) 04/04/21 13:18 Seg Neutrophils % 74.9 % (40.0-70.0) H 04/04/21 13:18 Seg Neutrophils # 4.6 K/mm3 (1.8-7.7) 04/04/21 13:18 D-Dimer 6891.55 ng/mlDDU (0-234) H 04/04/21 13:18 Sodium 134 mmol/L (137-145) L 04/05/21 06:16 Potassium 5.0 mmol/L (3.6-5.0) 04/05/21 06:16 Chloride 94.7 mmol/L (98-107) L 04/05/21 06:16 Carbon Dioxide 19 mmol/L (22-30) L 04/05/21 06:16 Anion Gap 25 mmol/L 04/05/21 06:16 BUN 13 mg/dL (9-20) 04/05/21 06:16 Creatinine 0.8 mg/dL (0.8-1.3) 04/05/21 06:16 Estimated GFR > 60 ml/min 04/05/21 06:16 BUN/Creatinine Ratio 16 % 04/05/21 06:16 Glucose 382 mg/dL (75-100) H 04/05/21 06:16 POC Glucose 366 mg/dL (70-105) H 04/04/21 22:25 Hemoglobin A1c 18.7 % (4-6) H 04/05/21 06:16 Lactic Acid 1.80 mmol/L (0.7-2.0) 04/04/21 13:18 Calcium 9.2 mg/dL (8.4-10.2) 04/05/21 06:16 Ferritin 916.4 ng/mL (30.0-300.0) H 04/04/21 13:18 Total Bilirubin 0.30 mg/dL (0.1-1.2) 04/05/21 06:16 AST 18 units/L (5-40) 04/05/21 06:16 ALT 6 units/L (7-56) L 04/05/21 06:16 Alkaline Phosphatase 73 units/L (35-129) 04/05/21 06:16 Lactate Dehydrogenase 546 units/L (91-180) H 04/04/21 13:18 Troponin T < 0.010 ng/mL (0.00-0.029) 04/04/21 14:13 C-Reactive Protein 28.00 mg/dL (0.00-1.30) H 04/04/21 13:18 Total Protein 6.9 g/dL (6.3-8.2) 04/05/21 06:16 Albumin 2.9 g/dL (3.9-5) L 04/05/21 06:16 Albumin/Globulin Ratio 0.7 % 04/05/21 06:16 Procalcitonin 0.05 ng/mL (<0.15) 04/04/21 13:18 Microbiology: Microbiology 04/04/21 13:18 Peripheral/Venous Blood Culture - Preliminary Culture in Progress 04/04/21 13:18 Peripheral/Venous Blood Culture - Preliminary Culture in Progress Handy/IV: Voiding Method Toilet Active Medications - Current Medications Current Medications: Generic Name Dose Route Start Last Admin Trade Name Freq PRN Reason Stop Dose Admin Acetaminophen 650 mg 04/04/21 20:44 Acetaminophen 325 Mg Tab PO Q4H PRN Pain MILD(1-3)/Fever >100.5/DOMINGO Ascorbic Acid 1,000 mg 04/05/21 10:00 04/05/21 10:10 Ascorbic Acid 500 Mg Tab PO 1,000 mg BID ANDREW Administration Cholecalciferol 5,000 unit 04/05/21 10:00 04/05/21 10:10 Cholecalciferol (Vit D3) 5,000 Unit Tab PO 5,000 unit DAILY ANDREW Administration Dexamethasone 8 mg 04/05/21 10:00 04/05/21 10:10 Dexamethasone 4 Mg/Ml Vial IV 04/13/21 10:01 8 mg Q24HR ANDREW Administration Enoxaparin Sodium 40 mg 04/04/21 21:00 04/04/21 22:26 Enoxaparin 40 Mg/0.4 Ml Inj SUB-Q 40 mg DAILY@2100 ANDREW Administration Famotidine 20 mg 04/04/21 22:00 04/05/21 10:10 Famotidine 20 Mg Tab PO 20 mg BID ANDREW Administration Hydromorphone HCl 0.5 mg 04/04/21 20:50 Hydromorphone 1 Mg/1 Ml Inj IV Q3H PRN Pain , Severe (7-10) Azithromycin 500 mg in 250 mls @ 250 mls/hr 04/05/21 10:00 04/05/21 11:31 Zithromax/Ns IV 04/08/21 10:59 Infused Q24HR ANDREW Infusion Ceftriaxone Sodium 2 gm in 100 mls @ 200 mls/hr 04/05/21 10:00 04/05/21 11:30 Rocephin/Ns 2 Gm/100 Ml IV Infused Q24HR ANDREW Infusion Protocol Insulin Glargine 35 units 04/04/21 22:00 04/04/21 22:26 Insulin Glargine 100 Units/Ml SUB-Q 35 units QHS ANDREW Administration Insulin Human Lispro 0 unit 04/04/21 22:00 04/04/21 22:40 Insulin Lispro 100 Unit/Ml SUB-Q 8 unit ACHS ANDREW Administration Protocol Metoclopramide HCl 10 mg 04/04/21 20:50 Metoclopramide 10 Mg/2 Ml Inj IV Q6H PRN Nausea And Vomiting Ondansetron HCl 4 mg 04/04/21 20:44 Ondansetron 4 Mg/2 Ml Inj IV Q8H PRN Nausea And Vomiting Oxycodone/Acetaminophen 1 tab 04/04/21 20:50 Oxycodone /Acetaminophen 5-325mg Tab PO Q6H PRN Pain, Moderate (4-6) Sodium Chloride 10 ml 04/04/21 22:00 04/05/21 10:11 Sodium Chloride 0.9% 10 Ml Flush Syringe IV 10 ml BID ANDREW Administration Sodium Chloride 10 ml 04/04/21 20:44 Sodium Chloride 0.9% 10 Ml Flush Syringe IV PRN PRN LINE FLUSH Zinc Sulfate 220 mg 04/05/21 10:00 04/05/21 10:10 Zinc Sulfate 220 Mg Cap PO 220 mg BID ANDREW Administration Nutrition/Malnutrition Assess - Dietary Evaluation Nutrition/Malnutrition Findings: Nutrition Notes Start: 04/05/21 09:12 Freq: Status: Active Protocol: Document 04/05/21 09:12 CHUNG (Rec: 04/05/21 09:15 CHUNG [email or web address]) Nutrition Notes Need for Assessment generated from: MD Order Initial or Follow up Assessment Current Diagnosis Diabetes,Respiratory Failure Other Pertinent Diagnosis SIRS, pneu, COVID PUI Current Diet Consistent CHO Labs/Tests A1c 18.7 BG 382 Pertinent Medications Humalog Lantus Height 5 ft 11 in Weight 81.647 kg [place] Body Weight (kg) 78.18 BMI 25.1 Intake Prior to Admission Fair Weight Status Appropriate Subjective/Other Information MD consult for ONS. 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 No weight changes . Diet prefrences updated. Pt reports not taking DM medications due to trying to control DM through diet only. Encouraged pt to take medications. Pt changed to " plant based" diet with very low protein intake. Spoke with pt on how to increase protein and control CHO portions. 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 No Is Patient Ambulatory and/or Out of Bed Yes REE-([facility]-ambulatory/OOB) [ 0613.680 NUTR.[id number]] Calculation Used for Recommendations [facility] Additional Notes Protein: (0.8-1g/kg) 65-82g Fluid: 1 ml/kcal Nutrition Intervention Change Diet Order: continue with food prefrences Add Supplement/Snack (indicate name/kcal Glucerna BID /protein ) Provides kCal: 440 Provides Protein (gm) 20 Teaching Recipient Patient Learning Readiness Good Teaching Methods Discussion,Handout Response to Teaching Verbalize understanding Education Handouts Provided Consistent CHO Nutrition Therapy Reading Nutrition Labels Goals to increase protein and decrease CHO Barriers to Learning No Barriers RD phone number provided Yes Patient aware of follow up options Yes Goal #1 Meet at least 75% of energy and protein needs via PO and ONS Anticipated Discharge Needs: Consistent CHO Follow-Up By: 04/09/21 Additional Comments FU for any further diet education questions, intakes and ONS tolerance
[2021-04-05 12:39] LABS: Total Cells Counted 100
[2021-04-05 12:44] LABS: Anisocytosis 1+
[2021-04-05 12:46] LABS: Platelet Estimate Consistent w Auto
[2021-04-05] MEDS: INSULIN LISPRO 100 UNIT/ML SUB-Q SCH ×5 (12:56→22:16)
[2021-04-05] MEDS ORDERED: INSULIN LISPRO 100 UNIT/ML SUB-Q STA (13:12)
--- NOTE | 2021-04-05 14:44 | Consultation ---
History of Present Illness - Reason for Consult Consult date: 04/05/21 - History of Present Illness 55-year-old male past medical historypresented to hospital complaining of shortness of breath. This began approximate 1 week prior to admission. Shortness of breath was progressive since the morning of admission. He refused Covid vaccination previously. Hypoxic on presentation. Febrile to 100.4 on admission with a white count of 4. Normal renal function, normal procalcitonin. Elevated inflammatory markers. Currently on ceftriaxone and azithromycin. On 2 L nasal cannula. Imaging personally reviewed: Chest x-ray: Bilateral pneumonia. Review of systems: Deferred to reduce to the risk of transmission of COVID-19 Past History Past Medical History: other (See HPI) Past Surgical History: No surgical history Social history: no significant social history Family history: no significant family history Medications and Allergies Allergies Allergy/AdvReac Type Severity Reaction Status Date / Time No Known Allergies Allergy Unverified 06/12/19 07:02 Home Medications Medication Instructions Recorded Confirmed Last Taken Type DOXYCYCLINE Hyclate [Vibramycin 100 mg PO BID #10 capsule 06/16/19 Unknown Rx CAP] Insulin Glargine,Hum.rec.anlog 35 units SUB-Q QHS #2 pen 06/16/19 Unknown Rx [Lantus Solostar] Sodium Hypochlorite [Dakin's Full 473 ml IR BID #2 bottle 06/16/19 Unknown Rx Strength] cephALEXin [Keflex] 500 mg PO Q6HR #20 capsule 06/16/19 Unknown Rx Active Meds: Active Medications Acetaminophen (Acetaminophen 325 Mg Tab) 650 mg PO Q4H PRN PRN Reason: Pain MILD(1-3)/Fever >100.5/DOMINGO Ascorbic Acid (Ascorbic Acid 500 Mg Tab) 1,000 mg PO BID [facility] Last Admin: 04/05/21 10:10 Dose: 1,000 mg Documented by: Cholecalciferol (Cholecalciferol (Vit D3) 5,000 Unit Tab) 5,000 unit PO DAILY [facility] Last Admin: 04/05/21 10:10 Dose: 5,000 unit Documented by: Dexamethasone (Dexamethasone 4 Mg/Ml Vial) 8 mg IV Q24HR [facility] Stop: 04/13/21 10:01 Last Admin: 04/05/21 10:10 Dose: 8 mg Documented by: Enoxaparin Sodium (Enoxaparin 40 Mg/0.4 Ml Inj) 40 mg SUB-Q DAILY@2100 [facility] Last Admin: 04/04/21 22:26 Dose: 40 mg Documented by: Famotidine (Famotidine 20 Mg Tab) 20 mg PO BID [facility] Last Admin: 04/05/21 10:10 Dose: 20 mg Documented by: Hydromorphone HCl (Hydromorphone 1 Mg/1 Ml Inj) 0.5 mg IV Q3H PRN PRN Reason: Pain , Severe (7-10) Azithromycin (Zithromax/Ns) 500 mg in 250 mls @ 250 mls/hr IV Q24HR [facility] Stop: 04/08/21 10:59 Last Infusion: 04/05/21 11:31 Dose: Infused Documented by: Ceftriaxone Sodium (Rocephin/Ns 2 Gm/100 Ml) 2 gm in 100 mls @ 200 mls/hr IV Q24HR [facility]; Protocol Last Infusion: 04/05/21 11:30 Dose: Infused Documented by: Insulin Glargine (Insulin Glargine 100 Units/Ml) 45 units SUB-Q QHS [facility] Insulin Human Lispro (Insulin Lispro 100 Unit/Ml) 0 unit SUB-Q ACHS [facility]; Protocol Last Admin: 04/05/21 13:18 Dose: Not Given Documented by: Metoclopramide HCl (Metoclopramide 10 Mg/2 Ml Inj) 10 mg IV Q6H PRN PRN Reason: Nausea And Vomiting Ondansetron HCl (Ondansetron 4 Mg/2 Ml Inj) 4 mg IV Q8H PRN PRN Reason: Nausea And Vomiting Oxycodone/Acetaminophen (Oxycodone /Acetaminophen 5-325mg Tab) 1 tab PO Q6H PRN PRN Reason: Pain, Moderate (4-6) Sodium Chloride (Sodium Chloride 0.9% 10 Ml Flush Syringe) 10 ml IV BID [facility] Last Admin: 04/05/21 10:11 Dose: 10 ml Documented by: Sodium Chloride (Sodium Chloride 0.9% 10 Ml Flush Syringe) 10 ml IV PRN PRN PRN Reason: LINE FLUSH Zinc Sulfate (Zinc Sulfate 220 Mg Cap) 220 mg PO BID [facility] Last Admin: 04/05/21 10:10 Dose: 220 mg Documented by: Physical Examination - Physical Exam Narrative exam: Physical exam deferred to reduce risk of transmission of COVID-19. Please refer to primary team's note. - Constitutional Vitals: Vital Signs Temp Pulse Resp BP Pulse Ox 98.1 F 55 L 15 110/65 98 04/04/21 19:45 04/05/21 00:31 04/04/21 22:31 04/05/21 00:31 04/05/21 03:10 Temperature -Last 24 Hours Temperature 98.1 F Results - Labs CBC & Chem 7: 04/05/21 06:16 04/05/21 06:16 Labs: Abnormal lab results 04/04/21 04/05/21 04/05/21 Range/Units 22:25 06:16 06:16 WBC 4.0 L (4.5-11.0) K/mm3 Seg Neuts % (Manual) 74.0 H (40.0-70.0) % Lymphocytes # (Manual) 0.9 L (1.2-5.4) K/mm3 Sodium 134 L (137-145) mmol/L Chloride 94.7 L (98-107) mmol/L Carbon Dioxide 19 L (22-30) mmol/L Glucose 382 H (75-100) mg/dL POC Glucose 366 H (70-105) mg/dL Hemoglobin A1c (4-6) % ALT 6 L (7-56) units/L Albumin 2.9 L (3.9-5) g/dL 04/05/21 04/05/21 Range/Units 06:16 12:18 WBC (4.5-11.0) K/mm3 Seg Neuts % (Manual) (40.0-70.0) % Lymphocytes # (Manual) (1.2-5.4) K/mm3 Sodium (137-145) mmol/L Chloride (98-107) mmol/L Carbon Dioxide (22-30) mmol/L Glucose (75-100) mg/dL POC Glucose 538 H (70-105) mg/dL Hemoglobin A1c 18.7 H (4-6) % ALT (7-56) units/L Albumin (3.9-5) g/dL Assessment and Plan Cultures: Blood culture no growth so far Covid PCR: Pending A/P: 55-year-old man past medical history insulin-dependent diabetes admitted as Covid PUI. #Covid PUI: With bilateral pneumonia. Pending PCR. Elevated inflammatory ma rkers. #Acute hypoxemic respiratory failure: Likely secondary to COVID-19 infection. Currently on 2 L nasal cannula. #Diabetes wound. Recs: -Dexamethasone 6 mg IV/PO daily for 10 days -If COVID positive would start Remdesivir 200 mg IV q day x 1 followed by 100 mg IV q day x 4 days -Obtain q48-72h inflammatory markers - ferritin, Ddimer, CRP, LDH -Stop antibiotics of normal procalcitonin. -Anticoagulation per hospital protocol -Proning as able Thank you for the consult, we will continue to follow. MD Con[facility] O: [phone] F: [phone]
[2021-04-05] MEDS ORDERED: INSULIN GLARGINE 100 UNITS/ML SUB-Q SCH (22:00)
[2021-04-05] MEDS: ENOXAPARIN 40 MG/0.4 ML INJ SUB-Q SCH (22:40)
[2021-04-06 06:43] LABS: Hematocrit 35.5 % (35.5-45.6); Hemoglobin 11.8 gm/dl (11.8-15.2); Mean Corpuscular HGB Conc 33 % (32-34); Mean Corpuscular Volume 92 fl (84-94); Platelet Count 338 K/mm3 (140-440); Red Blood Count 3.86 M/mm3 (3.65-5.03); Red Cell Distribution Width 13.9 % (13.2-15.2)
[2021-04-06 07:06] LABS: BUN/Creatinine Ratio 20; Blood Urea Nitrogen 16 mg/dL (9-20); Calcium 9.2 mg/dL (8.4-10.2); Hemolysis Index 0
--- NOTE | 2021-04-06 09:13 | Electrocardiograph Report ---
[facility] Test Date: 2021-04-04 Test Time: 13:41:18 Pat Name: GREGORY RUBIO Department: Room: A367 Gender: M Plan Examiner: LARISSA : 1965 Requested By: LINDSAY OSLON Order Number: [id number] Reading MD: Jarek Erwin Measurements Intervals [place] Rate: 96 P: 54 CO: 137 QRS: 16 QRSD: 80 T: 33 QT: 333 QTc: 422 Interpretive Statements Sinus rhythm Probable left atrial enlargement No previous ECG available for comparison Electronically Signed On 04-06-2021 9:13:26 EDT by Jarek Erwin
--- NOTE | 2021-04-06 09:52 | Progress Note ---
Assessment and Plan Assessment and plan: (1) Acute respiratory failure with hypoxia Current Visit: Yes Status: Acute Plan to address problem: Patient saturations were 88% on room air Patient initiated on 2 L of nasal cannula oxygen Possible Covid pneumonia Patient counseled about Covid vaccination Adjust oxygen supplementation as necessary (2) SIRS (systemic inflammatory response syndrome) Current Visit: Yes Status: Acute Plan to address problem: All inflammatory markers including D-dimer and CRP lactate dehydrogenase and ferritin are elevated IV Decadron and IV antibiotics for now (3) Bilateral pneumonia Current Visit: Yes Status: Acute Plan to address problem: Patient initiated on Zithromax and ceftriaxone ID consult requested (4) Suspected 2019 novel coronavirus infection Current Visit: Yes Status: Acute Plan to address problem: Coronavirus PCR in a.m. (5) Insulin dependent diabetes mellitus Current Visit: Yes Status: Acute Plan to address problem: Patient on high-dose sliding scale coverage and Lantus (6) Hyponatremia Current Visit: Yes Status: Acute Plan to address problem: IV fluids for 10 hours of normal saline (7) Malnutrition Current Visit: Yes Status: Chronic Qualifiers: Protein-calorie malnutrition severity: moderate Plan to address problem: Albumin level of 2.7 Dietary supplements initiated (8) DVT prophylaxis Current Visit: Yes Status: Acute Plan to address problem: On Lovenox and GI prophylaxis 04/05/21 Patient with acute respiratory failure secondary to bilateral pneumonia. He is PUI to r/o Covid-19 infection. Diabetes uncontrolled. Bld glucose 538 with A1C of 18.7. Will Increase lantus to 45 Units subcut q hs Give Humalog 16 Units subcut now 04/06/21 Patient with acute resp failure secondary to Covid Pneumonia. Diabetes uncontrolled. Will Increase Lantus to 55 Units qhs He stated he had stopped taking Insulin for about 6 months History Interval history: shortness of breath X 1 week Hospitalist Physical - Physical exam Narrative exam: Gen:Not in acute distress, lying in bed HEENT:Normocephalic, atraumatic Neck:supple, no JVD Lungs: Bilateral rales, no rhonchi Heart:S1 and S2 reg, no murmurs, rubs or gallop Abd:Soft, non tender, non distended, normal bowel sounds Ext:No edema. no clubbing, no cyanosis Neuro:awake,alert, oriented x 3, moves all ext - Constitutional Vitals: Temp Pulse Resp BP Pulse Ox 97.4 F L 55 L 20 129/77 97 04/05/21 22:56 04/05/21 22:56 04/05/21 22:56 04/05/21 22:56 04/06/21 08:25 General appearance: Present: well-nourished HEART Score - HEART Score Troponin: Troponin T < 0.010 ng/mL (0.00-0.029) 04/04/21 14:13 Results - Labs CBC & Chem 7: 04/06/21 05:13 04/06/21 05:13 Labs: Laboratory Last Values WBC 8.5 K/mm3 (4.5-11.0) 04/06/21 05:13 RBC 3.86 M/mm3 (3.65-5.03) 04/06/21 05:13 Hgb 11.8 gm/dl (11.8-15.2) 04/06/21 05:13 Hct 35.5 % (35.5-45.6) 04/06/21 05:13 MCV 92 fl (84-94) 04/06/21 05:13 MCH 31 pg (28-32) 04/06/21 05:13 MCHC 33 % (32-34) 04/06/21 05:13 RDW 13.9 % (13.2-15.2) 04/06/21 05:13 Plt Count 338 K/mm3 (140-440) 04/06/21 05:13 Lymph % (Auto) 18.0 % (13.4-35.0) 04/04/21 13:18 Bennett % (Auto) 6.7 % (0.0-7.3) 04/04/21 13:18 Eos % (Auto) 0.0 % (0.0-4.3) 04/04/21 13:18 Baso % (Auto) 0.4 % (0.0-1.8) 04/04/21 13:18 Lymph # (Auto) 1.1 K/mm3 (1.2-5.4) L 04/04/21 13:18 Bennett # (Auto) 0.4 K/mm3 (0.0-0.8) 04/04/21 13:18 Eos # (Auto) 0.0 K/mm3 (0.0-0.4) 04/04/21 13:18 Baso # (Auto) 0.0 K/mm3 (0.0-0.1) 04/04/21 13:18 Add Manual Diff Complete 04/05/21 06:16 Total Counted 100 04/05/21 06:16 Seg Neutrophils % 74.9 % (40.0-70.0) H 04/04/21 13:18 Seg Neuts % (Manual) 74.0 % (40.0-70.0) H 04/05/21 06:16 Band Neutrophils % 1.0 % 04/05/21 06:16 Lymphocytes % (Manual) 22.0 % (13.4-35.0) 04/05/21 06:16 Monocytes % (Manual) 3.0 % (0.0-7.3) 04/05/21 06:16 Nucleated RBC % Not Reportable 04/05/21 06:16 Seg Neutrophils # 4.6 K/mm3 (1.8-7.7) 04/04/21 13:18 Seg Neutrophils # Man 3.0 K/mm3 (1.8-7.7) 04/05/21 06:16 Band Neutrophils # 0.0 K/mm3 04/05/21 06:16 Lymphocytes # (Manual) 0.9 K/mm3 (1.2-5.4) L 04/05/21 06:16 Abs React Lymphs (Man) 0.0 K/mm3 04/05/21 06:16 Monocytes # (Manual) 0.1 K/mm3 (0.0-0.8) 04/05/21 06:16 Eosinophils # (Manual) 0.0 K/mm3 (0.0-0.4) 04/05/21 06:16 Basophils # (Manual) 0.0 K/mm3 (0.0-0.1) 04/05/21 06:16 Metamyelocytes # 0.0 K/mm3 04/05/21 06:16 Myelocytes # 0.0 K/mm3 04/05/21 06:16 Promyelocytes # 0.0 K/mm3 04/05/21 06:16 Blast Cells # 0.0 K/mm3 04/05/21 06:16 WBC Morphology Not Reportable 04/05/21 06:16 Hypersegmented Neuts Not Reportable 04/05/21 06:16 Hyposegmented Neuts Not Reportable 04/05/21 06:16 Hypogranular Neuts Not Reportable 04/05/21 06:16 Smudge Cells Not Reportable 04/05/21 06:16 Toxic Granulation Not Reportable 04/05/21 06:16 Toxic Vacuolation Not Reportable 04/05/21 06:16 Dohle Bodies Not Reportable 04/05/21 06:16 Pelger-Huet Anomaly Not Reportable 04/05/21 06:16 Raymundo Rods Not Reportable 04/05/21 06:16 Platelet Estimate Consistent w auto 04/05/21 06:16 Clumped Platelets Not Reportable 04/05/21 06:16 Plt Clumps, EDTA Not Reportable 04/05/21 06:16 Large Platelets Not Reportable 04/05/21 06:16 Giant Platelets Not Reportable 04/05/21 06:16 Platelet Satelliting Not Reportable 04/05/21 06:16 Plt Morphology Comment Not Reportable 04/05/21 06:16 RBC Morphology Not Reportable 04/05/21 06:16 Dimorphic RBCs Not Reportable 04/05/21 06:16 Polychromasia Not Reportable 04/05/21 06:16 Hypochromasia Not Reportable 04/05/21 06:16 Poikilocytosis Not Reportable 04/05/21 06:16 Anisocytosis 1+ 04/05/21 06:16 Microcytosis Not Reportable 04/05/21 06:16 Macrocytosis Not Reportable 04/05/21 06:16 Spherocytes Not Reportable 04/05/21 06:16 Pappenheimer Bodies Not Reportable 04/05/21 06:16 Sickle Cells Not Reportable 04/05/21 06:16 Target Cells Not Reportable 04/05/21 06:16 Tear Drop Cells Not Reportable 04/05/21 06:16 Ovalocytes Not Reportable 04/05/21 06:16 Helmet Cells Not Reportable 04/05/21 06:16 [place] Bodies Not Reportable 04/05/21 06:16 [place] Rings Not Reportable 04/05/21 06:16 Hunt Cells Not Reportable 04/05/21 06:16 Bite Cells Not Reportable 04/05/21 06:16 Crenated Cell Not Reportable 04/05/21 06:16 Elliptocytes Not Reportable 04/05/21 06:16 Acanthocytes (Spur) Not Reportable 04/05/21 06:16 Rouleaux Not Reportable 04/05/21 06:16 Hemoglobin C Crystals Not Reportable 04/05/21 06:16 Schistocytes Not Reportable 04/05/21 06:16 Malaria parasites Not Reportable 04/05/21 06:16 Toni Bodies Not Reportable 04/05/21 06:16 Hem Pathologist Commnt No 04/05/21 06:16 D-Dimer 6891.55 ng/mlDDU (0-234) H 04/04/21 13:18 Sodium 136 mmol/L (137-145) L 04/06/21 05:13 Potassium 4.3 mmol/L (3.6-5.0) 04/06/21 05:13 Chloride 99.0 mmol/L (98-107) 04/06/21 05:13 Carbon Dioxide 24 mmol/L (22-30) 04/06/21 05:13 Anion Gap 17 mmol/L 04/06/21 05:13 BUN 16 mg/dL (9-20) 04/06/21 05:13 Creatinine 0.8 mg/dL (0.8-1.3) 04/06/21 05:13 Estimated GFR > 60 ml/min 04/06/21 05:13 BUN/Creatinine Ratio 20 % 04/06/21 05:13 Glucose 395 mg/dL (75-100) H 04/06/21 05:13 POC Glucose 340 mg/dL (70-105) H 04/06/21 07:48 Hemoglobin A1c 18.7 % (4-6) H 04/05/21 06:16 Lactic Acid 1.80 mmol/L (0.7-2.0) 04/04/21 13:18 Calcium 9.2 mg/dL (8.4-10.2) 04/06/21 05:13 Ferritin 916.4 ng/mL (30.0-300.0) H 04/04/21 13:18 Total Bilirubin 0.30 mg/dL (0.1-1.2) 04/05/21 06:16 AST 18 units/L (5-40) 04/05/21 06:16 ALT 6 units/L (7-56) L 04/05/21 06:16 Alkaline Phosphatase 73 units/L (35-129) 04/05/21 06:16 Lactate Dehydrogenase 546 units/L (91-180) H 04/04/21 13:18 Troponin T < 0.010 ng/mL (0.00-0.029) 04/04/21 14:13 C-Reactive Protein 28.00 mg/dL (0.00-1.30) H 04/04/21 13:18 Total Protein 6.9 g/dL (6.3-8.2) 04/05/21 06:16 Albumin 2.9 g/dL (3.9-5) L 04/05/21 06:16 Albumin/Globulin Ratio 0.7 % 04/05/21 06:16 Procalcitonin 0.05 ng/mL (<0.15) 04/04/21 13:18 Coronavirus (PCR) Positive (Negative) A 04/04/21 09:50 Microbiology: Microbiology 04/04/21 13:18 Peripheral/Venous Blood Culture - Preliminary NO GROWTH AFTER 24 HOURS 04/04/21 13:18 Peripheral/Venous Blood Culture - Preliminary NO GROWTH AFTER 24 HOURS Handy/IV: Voiding Method Toilet Active Medications - Current Medications Current Medications: Generic Name Dose Route Start Last Admin Trade Name Freq PRN Reason Stop Dose Admin Acetaminophen 650 mg 04/04/21 20:44 Acetaminophen 325 Mg Tab PO Q4H PRN Pain MILD(1-3)/Fever >100.5/DOMINGO Ascorbic Acid 1,000 mg 04/05/21 10:00 04/05/21 22:41 Ascorbic Acid 500 Mg Tab PO 1,000 mg BID ANDREW Administration Cholecalciferol 5,000 unit 04/05/21 10:00 04/05/21 10:10 Cholecalciferol (Vit D3) 5,000 Unit Tab PO 5,000 unit DAILY ANDREW Administration Dexamethasone 8 mg 04/05/21 10:00 04/05/21 10:10 Dexamethasone 4 Mg/Ml Vial IV 04/13/21 10:01 8 mg Q24HR ANDREW Administration Enoxaparin Sodium 40 mg 04/04/21 21:00 04/05/21 22:40 Enoxaparin 40 Mg/0.4 Ml Inj SUB-Q 40 mg DAILY@2100 ANDREW Administration Famotidine 20 mg 04/04/21 22:00 04/05/21 22:41 Famotidine 20 Mg Tab PO 20 mg BID ANDREW Administration Hydromorphone HCl 0.5 mg 04/04/21 20:50 Hydromorphone 1 Mg/1 Ml Inj IV Q3H PRN Pain , Severe (7-10) Insulin Glargine 45 units 04/05/21 22:00 04/05/21 22:17 Insulin Glargine 100 Units/Ml SUB-Q 45 units QHS ANDREW Administration Insulin Human Lispro 0 unit 04/04/21 22:00 04/05/21 22:16 Insulin Lispro 100 Unit/Ml SUB-Q 8 unit ACHS ANDREW Administration Protocol Metoclopramide HCl 10 mg 04/04/21 20:50 Metoclopramide 10 Mg/2 Ml Inj IV Q6H PRN Nausea And Vomiting Ondansetron HCl 4 mg 04/04/21 20:44 Ondansetron 4 Mg/2 Ml Inj IV Q8H PRN Nausea And Vomiting Oxycodone/Acetaminophen 1 tab 04/04/21 20:50 Oxycodone /Acetaminophen 5-325mg Tab PO Q6H PRN Pain, Moderate (4-6) Sodium Chloride 10 ml 04/04/21 22:00 04/05/21 22:42 Sodium Chloride 0.9% 10 Ml Flush Syringe IV 10 ml BID ANDREW Administration Sodium Chloride 10 ml 04/04/21 20:44 Sodium Chloride 0.9% 10 Ml Flush Syringe IV PRN PRN LINE FLUSH Zinc Sulfate 220 mg 04/05/21 10:00 04/05/21 22:41 Zinc Sulfate 220 Mg Cap PO 220 mg BID ANDREW Administration Nutrition/Malnutrition Assess - Dietary Evaluation Nutrition/Malnutrition Findings: Nutrition Notes Start: 04/05/21 09:12 Freq: Status: Active Protocol: Document 04/05/21 09:12 (Rec: 04/05/21 09:15 [email or web address]) Nutrition Notes Need for Assessment generated from: MD Order Initial or Follow up Assessment Current Diagnosis Diabetes,Respiratory Failure Other Pertinent Diagnosis SIRS, pneu, COVID PUI Current Diet Consistent CHO Labs/Tests A1c 18.7 BG 382 Pertinent Medications Humalog Lantus Height 5 ft 11 in Weight 81.647 kg [place] Body Weight (kg) 78.18 BMI 25.1 Intake Prior to Admission Fair Weight Status Appropriate Subjective/Other Information MD consult for ONS. Pt reports low appetite BUNDLE TIER but it is coming back. No weight changes . Diet prefrences updated. Pt reports not taking DM medications due to trying to control DM through diet only. Encouraged pt to take medications. Pt changed to " plant based" diet with very low protein intake. Spoke with pt on how to increase protein and control CHO portions. Burn Absent Trauma Absent GI Symptoms None Current % PO Poor (25-49%) Minimum of two criteria No physical signs of malnutrition #2 Nutrition Diagnosis Limited adherence to nutrition -related recommendations Etiology limited understanding of prior education As Evidenced by Signs and Symptoms A1c 18.7, pt eating low protein, high CHO/fat meals #1 Nutrition Diagnosis Inadequate oral intake Etiology acute illness As Evidenced by Signs and Symptoms pt eating <50% of EER for "few days" BUNDLE TIER Is patient on ventilator? No Is Patient Ambulatory and/or Out of Bed Yes REE-([facility]-ambulatory/OOB) [ 2188.680 NUTR.[id number]] Calculation Used for Recommendations [facility] Additional Notes Protein: (0.8-1g/kg) 65-82g Fluid: 1 ml/kcal Nutrition Intervention Change Diet Order: continue with food prefrences Add Supplement/Snack (indicate name/kcal Glucerna BID /protein ) Provides kCal: 440 Provides Protein (gm) 20 Teaching Recipient Patient Learning Readiness Good Teaching Methods Discussion,Handout Response to Teaching Verbalize understanding Education Handouts Provided Consistent CHO Nutrition Therapy Reading Nutrition Labels Goals to increase protein and decrease CHO Barriers to Learning No Barriers RD phone number provided Yes Patient aware of follow up options Yes Goal #1 Meet at least 75% of energy and protein needs via PO and ONS Anticipated Discharge Needs: Consistent CHO Follow-Up By: 04/09/21 Additional Comments FU for any further diet education questions, intakes and ONS tolerance
[2021-04-06] MEDS: INSULIN LISPRO 100 UNIT/ML SUB-Q SCH ×4 (10:44→23:08)
[2021-04-06] MEDS: CHOLECALCIFEROL (VIT D3) 5,000 UNIT TAB PO SCH (10:45)
[2021-04-06] MEDS: dexAMETHasone 4 MG/ML VIAL IV SCH (10:45)
[2021-04-06] MEDS: FAMOTIDINE 20 MG TAB PO SCH ×2 (10:45→22:47)
[2021-04-06] MEDS: ASCORBIC ACID 500 MG TAB PO SCH ×2 (10:45→22:47)
[2021-04-06] MEDS: ZINC SULFATE 220 MG CAP PO SCH ×2 (10:45→22:47)
--- NOTE | 2021-04-06 13:53 | Progress Note ---
Assessment and Plan Cultures: Blood culture no growth so far Covid PCR: Positive A/P: 55-year-old man past medical history insulin-dependent diabetes admitted as Covid PUI. #Covid pneumonia: With bilateral pneumonia. PCR positive. Elevated inflammatory markers. #Acute hypoxemic respiratory failure: Likely secondary to COVID-19 infection. Currently on 5 L nasal cannula. #Diabetes: tight glycemic control for best outcomes. Recs: -Dexamethasone 6 mg IV/PO daily for 10 days -Started Remdesivir, D1 of 5. Monitor liver function while receiving. -Obtain q48-72h inflammatory markers - ferritin, Ddimer, CRP, LDH -Stop antibiotics as normal procalcitonin. -Anticoagulation per hospital protocol -Proning as able Thank you for the consult, we will continue to follow. Dr. reyes covering this weekend, Dr. Zuluaga taking over on Friday. Ravindra Campos MD [facility] O: [phone] F: [phone] Subjective Date of service: 04/06/21 Interval history: Afebrile, normal white count. Blood cultures remain negative. on 5 L nasal cannula Objective - Exam Narrative Exam: Physical exam deferred to reduce risk of transmission of COVID-19. Please refer to primary team's note. - Constitutional Vitals: Vital Signs Temp Pulse Resp BP Pulse Ox 97.7 F 54 L 22 127/76 98 04/06/21 12:43 04/06/21 12:43 04/06/21 12:43 04/06/21 12:43 04/06/21 12:43 Temperature -Last 24 Hours Temperature 97.7 F Temperature 98.4 F Temperature 97.4 F - Labs CBC & Chem 7: 04/06/21 05:13 04/06/21 05:13 Labs: Abnormal lab results 04/04/21 04/05/21 04/05/21 Range/Units 09:50 16:35 22:54 Sodium (137-145) mmol/L Glucose (75-100) mg/dL POC Glucose 433 H 362 H (70-105) mg/dL Coronavirus (PCR) Positive A (Negative) 04/06/21 04/06/21 04/06/21 Range/Units 05:13 07:48 12:42 Sodium 136 L (137-145) mmol/L Glucose 395 H (75-100) mg/dL POC Glucose 340 H 392 H (70-105) mg/dL Coronavirus (PCR) (Negative)
[2021-04-06] MEDS ORDERED: REMDESIVIR 200 MG in SODIUM CHLORIDE 0.9% 250ML 250 ML IV ONE (15:00)
[2021-04-06 15:37] LABS: Alanine Aminotransferase 11 units/L (7-56); BUN/Creatinine Ratio 21; Blood Urea Nitrogen 17 mg/dL (9-20); Calcium 9.3 mg/dL (8.4-10.2); Hemolysis Index 26
[2021-04-06] MEDS: SODIUM CHLORIDE 0.9% 50 ML IVPB IV SCH (19:34)
[2021-04-06] MEDS: guaiFENesin/CODEINE 100-10MG ORAL LIQD 5 ML PO PRN (22:47)
[2021-04-06] MEDS: ENOXAPARIN 40 MG/0.4 ML INJ SUB-Q SCH (22:47)
[2021-04-06] MEDS: INSULIN GLARGINE 100 UNITS/ML SUB-Q SCH (23:11)
[2021-04-07] MEDS ORDERED: INSULIN LISPRO 100 UNIT/ML SUB-Q NR (07:41)
[2021-04-07] MEDS: INSULIN LISPRO 100 UNIT/ML SUB-Q SCH ×4 (08:30→22:49)
[2021-04-07 10:04] LABS: Alanine Aminotransferase 7 units/L (7-56); Albumin 3.2 g/dL (3.9-5); Blood Urea Nitrogen 16 mg/dL (9-20); Calcium 9.3 mg/dL (8.4-10.2); Hemolysis Index 1
[2021-04-07 10:05] LABS: BUN/Creatinine Ratio 23
--- NOTE | 2021-04-07 10:39 | Progress Note ---
Assessment and Plan Assessment and plan: (1) Acute respiratory failure with hypoxia Current Visit: Yes Status: Acute Plan to address problem: Patient saturations were 88% on room air Patient initiated on 2 L of nasal cannula oxygen Possible Covid pneumonia Patient counseled about Covid vaccination Adjust oxygen supplementation as necessary (2) SIRS (systemic inflammatory response syndrome) Current Visit: Yes Status: Acute Plan to address problem: All inflammatory markers including D-dimer and CRP lactate dehydrogenase and ferritin are elevated IV Decadron and IV antibiotics for now (3) Bilateral pneumonia Current Visit: Yes Status: Acute Plan to address problem: Patient initiated on Zithromax and ceftriaxone ID consult requested (4) Suspected 2019 novel coronavirus infection Current Visit: Yes Status: Acute Plan to address problem: Coronavirus PCR in a.m. (5) Insulin dependent diabetes mellitus Current Visit: Yes Status: Acute Plan to address problem: Patient on high-dose sliding scale coverage and Lantus (6) Hyponatremia Current Visit: Yes Status: Acute Plan to address problem: IV fluids for 10 hours of normal saline (7) Malnutrition Current Visit: Yes Status: Chronic Qualifiers: Protein-calorie malnutrition severity: moderate Plan to address problem: Albumin level of 2.7 Dietary supplements initiated (8) DVT prophylaxis Current Visit: Yes Status: Acute Plan to address problem: On Lovenox and GI prophylaxis 04/05/21 Patient with acute respiratory failure secondary to bilateral pneumonia. He is PUI to r/o Covid-19 infection. Diabetes uncontrolled. Bld glucose 538 with A1C of 18.7. Will Increase lantus to 45 Units subcut q hs Give Humalog 16 Units subcut now 04/06/21 Patient with acute resp failure secondary to Covid Pneumonia. Diabetes uncontrolled. Will Increase Lantus to 55 Units qhs He stated he had stopped taking Insulin for about 6 months 04/07/21 Patient with acute resp failure secondary to Covid Pneumonia. Diabetes uncontrolled, but improving. Continue lantus at 55 Units qhs History Interval history: shortness of breath X 1 week Blood glucose elevated but improving Hospitalist Physical - Physical exam Narrative exam: Gen:Not in acute distress, lying in bed HEENT:Normocephalic, atraumatic Neck:supple, no JVD Lungs: Bilateral rales, no rhonchi Heart:S1 and S2 reg, no murmurs, rubs or gallop Abd:Soft, non tender, non distended, normal bowel sounds Ext:No edema. no clubbing, no cyanosis Neuro:awake,alert, oriented x 3, moves all ext - Constitutional Vitals: Temp Pulse Resp BP Pulse Ox 97.7 F 48 L 18 128/76 95 04/07/21 05:58 04/07/21 05:58 04/07/21 05:58 04/07/21 05:58 04/07/21 05:58 General appearance: Present: well-nourished HEART Score - HEART Score Troponin: Troponin T < 0.010 ng/mL (0.00-0.029) 04/04/21 14:13 Results - Labs CBC & Chem 7: 04/06/21 05:13 04/07/21 08:28 Labs: Laboratory Last Values WBC 8.5 K/mm3 (4.5-11.0) 04/06/21 05:13 RBC 3.86 M/mm3 (3.65-5.03) 04/06/21 05:13 Hgb 11.8 gm/dl (11.8-15.2) 04/06/21 05:13 Hct 35.5 % (35.5-45.6) 04/06/21 05:13 MCV 92 fl (84-94) 04/06/21 05:13 MCH 31 pg (28-32) 04/06/21 05:13 MCHC 33 % (32-34) 04/06/21 05:13 RDW 13.9 % (13.2-15.2) 04/06/21 05:13 Plt Count 338 K/mm3 (140-440) 04/06/21 05:13 Lymph % (Auto) 18.0 % (13.4-35.0) 04/04/21 13:18 [place] % (Auto) 6.7 % (0.0-7.3) 04/04/21 13:18 Eos % (Auto) 0.0 % (0.0-4.3) 04/04/21 13:18 Baso % (Auto) 0.4 % (0.0-1.8) 04/04/21 13:18 Lymph # (Auto) 1.1 K/mm3 (1.2-5.4) L 04/04/21 13:18 [place] # (Auto) 0.4 K/mm3 (0.0-0.8) 04/04/21 13:18 Eos # (Auto) 0.0 K/mm3 (0.0-0.4) 04/04/21 13:18 Baso # (Auto) 0.0 K/mm3 (0.0-0.1) 04/04/21 13:18 Add Manual Diff Complete 04/05/21 06:16 Total Counted 100 04/05/21 06:16 Seg Neutrophils % 74.9 % (40.0-70.0) H 04/04/21 13:18 Seg Neuts % (Manual) 74.0 % (40.0-70.0) H 04/05/21 06:16 Band Neutrophils % 1.0 % 04/05/21 06:16 Lymphocytes % (Manual) 22.0 % (13.4-35.0) 04/05/21 06:16 Monocytes % (Manual) 3.0 % (0.0-7.3) 04/05/21 06:16 Nucleated RBC % Not Reportable 04/05/21 06:16 Seg Neutrophils # 4.6 K/mm3 (1.8-7.7) 04/04/21 13:18 Seg Neutrophils # Man 3.0 K/mm3 (1.8-7.7) 04/05/21 06:16 Band Neutrophils # 0.0 K/mm3 04/05/21 06:16 Lymphocytes # (Manual) 0.9 K/mm3 (1.2-5.4) L 04/05/21 06:16 Abs React Lymphs (Man) 0.0 K/mm3 04/05/21 06:16 Monocytes # (Manual) 0.1 K/mm3 (0.0-0.8) 04/05/21 06:16 Eosinophils # (Manual) 0.0 K/mm3 (0.0-0.4) 04/05/21 06:16 Basophils # (Manual) 0.0 K/mm3 (0.0-0.1) 04/05/21 06:16 Metamyelocytes # 0.0 K/mm3 04/05/21 06:16 Myelocytes # 0.0 K/mm3 04/05/21 06:16 Promyelocytes # 0.0 K/mm3 04/05/21 06:16 Blast Cells # 0.0 K/mm3 04/05/21 06:16 WBC Morphology Not Reportable 04/05/21 06:16 Hypersegmented Neuts Not Reportable 04/05/21 06:16 Hyposegmented Neuts Not Reportable 04/05/21 06:16 Hypogranular Neuts Not Reportable 04/05/21 06:16 Smudge Cells Not Reportable 04/05/21 06:16 Toxic Granulation Not Reportable 04/05/21 06:16 Toxic Vacuolation Not Reportable 04/05/21 06:16 Dohle Bodies Not Reportable 04/05/21 06:16 Pelger-Huet Anomaly Not Reportable 04/05/21 06:16 Raymundo Rods Not Reportable 04/05/21 06:16 Platelet Estimate Consistent w auto 04/05/21 06:16 Clumped Platelets Not Reportable 04/05/21 06:16 Plt Clumps, EDTA Not Reportable 04/05/21 06:16 Large Platelets Not Reportable 04/05/21 06:16 Giant Platelets Not Reportable 04/05/21 06:16 Platelet Satelliting Not Reportable 04/05/21 06:16 Plt Morphology Comment Not Reportable 04/05/21 06:16 RBC Morphology Not Reportable 04/05/21 06:16 Dimorphic RBCs Not Reportable 04/05/21 06:16 Polychromasia Not Reportable 04/05/21 06:16 Hypochromasia Not Reportable 04/05/21 06:16 Poikilocytosis Not Reportable 04/05/21 06:16 Anisocytosis 1+ 04/05/21 06:16 Microcytosis Not Reportable 04/05/21 06:16 Macrocytosis Not Reportable 04/05/21 06:16 Spherocytes Not Reportable 04/05/21 06:16 Pappenheimer Bodies Not Reportable 04/05/21 06:16 Sickle Cells Not Reportable 04/05/21 06:16 Target Cells Not Reportable 04/05/21 06:16 Tear Drop Cells Not Reportable 04/05/21 06:16 Ovalocytes Not Reportable 04/05/21 06:16 Helmet Cells Not Reportable 04/05/21 06:16 [place] Bodies Not Reportable 04/05/21 06:16 [place] Rings Not Reportable 04/05/21 06:16 Lanny Cells Not Reportable 04/05/21 06:16 Bite Cells Not Reportable 04/05/21 06:16 Crenated Cell Not Reportable 04/05/21 06:16 Elliptocytes Not Reportable 04/05/21 06:16 Acanthocytes (Spur) Not Reportable 04/05/21 06:16 Rouleaux Not Reportable 04/05/21 06:16 Hemoglobin C Crystals Not Reportable 04/05/21 06:16 Schistocytes Not Reportable 04/05/21 06:16 Malaria parasites Not Reportable 04/05/21 06:16 Toni Bodies Not Reportable 04/05/21 06:16 Hem Pathologist Commnt No 04/05/21 06:16 D-Dimer 6891.55 ng/mlDDU (0-234) H 04/04/21 13:18 Sodium 138 mmol/L (137-145) 04/07/21 08:28 Potassium 4.1 mmol/L (3.6-5.0) 04/07/21 08:28 Chloride 98.7 mmol/L (98-107) 04/07/21 08:28 Carbon Dioxide 27 mmol/L (22-30) 04/07/21 08:28 Anion Gap 16 mmol/L 04/07/21 08:28 BUN 16 mg/dL (9-20) 04/07/21 08:28 Creatinine 0.7 mg/dL (0.8-1.3) L 04/07/21 08:28 Estimated GFR > 60 ml/min 04/07/21 08:28 BUN/Creatinine Ratio 23 % 04/07/21 08:28 Glucose 231 mg/dL (75-100) H 04/07/21 08:28 POC Glucose 236 mg/dL (70-105) H 04/07/21 08:17 Hemoglobin A1c 18.7 % (4-6) H 04/05/21 06:16 Lactic Acid 1.80 mmol/L (0.7-2.0) 04/04/21 13:18 Calcium 9.3 mg/dL (8.4-10.2) 04/07/21 08:28 Ferritin 916.4 ng/mL (30.0-300.0) H 04/04/21 13:18 Total Bilirubin 0.30 mg/dL (0.1-1.2) 04/07/21 08:28 AST 13 units/L (5-40) 04/07/21 08:28 ALT 7 units/L (7-56) 04/07/21 08:28 Alkaline Phosphatase 64 units/L (35-129) 04/07/21 08:28 Lactate Dehydrogenase 546 units/L (91-180) H 04/04/21 13:18 Troponin T < 0.010 ng/mL (0.00-0.029) 04/04/21 14:13 C-Reactive Protein 28.00 mg/dL (0.00-1.30) H 04/04/21 13:18 Total Protein 6.0 g/dL (6.3-8.2) L 04/07/21 08:28 Albumin 3.2 g/dL (3.9-5) L 04/07/21 08:28 Albumin/Globulin Ratio 1.1 % 04/07/21 08:28 Procalcitonin 0.05 ng/mL (<0.15) 04/04/21 13:18 Coronavirus (PCR) Positive (Negative) A 04/04/21 09:50 Microbiology: Microbiology 04/04/21 13:18 Peripheral/Venous Blood Culture - Preliminary NO GROWTH AFTER 48 HOURS 04/04/21 13:18 Peripheral/Venous Blood Culture - Preliminary NO GROWTH AFTER 48 HOURS Handy/IV: Voiding Method Toilet Active Medications - Current Medications Current Medications: Generic Name Dose Route Start Last Admin Trade Name Freq PRN Reason Stop Dose Admin Acetaminophen 650 mg 04/04/21 20:44 Acetaminophen 325 Mg Tab PO Q4H PRN Pain MILD(1-3)/Fever >100.5/DOMINGO Ascorbic Acid 1,000 mg 04/05/21 10:00 04/06/21 22:47 Ascorbic Acid 500 Mg Tab PO 1,000 mg BID ANDREW Administration Cholecalciferol 5,000 unit 04/05/21 10:00 04/06/21 10:45 Cholecalciferol (Vit D3) 5,000 Unit Tab PO 5,000 unit DAILY ANDREW Administration Dexamethasone 8 mg 04/05/21 10:00 04/06/21 10:45 Dexamethasone 4 Mg/Ml Vial IV 04/13/21 10:01 8 mg Q24HR ANDREW Administration Enoxaparin Sodium 40 mg 04/04/21 21:00 04/06/21 22:47 Enoxaparin 40 Mg/0.4 Ml Inj SUB-Q 40 mg DAILY@2100 ANDREW Administration Famotidine 20 mg 04/04/21 22:00 04/06/21 22:47 Famotidine 20 Mg Tab PO 20 mg BID ANDREW Administration Hydromorphone HCl 0.5 mg 04/04/21 20:50 Hydromorphone 1 Mg/1 Ml Inj IV Q3H PRN Pain , Severe (7-10) REMDESIVIR 100 mg/ Sodium 250 mls @ 500 mls/hr 04/07/21 21:00 Chloride IV 04/10/21 21:29 Q24HR@2100 [facility] Insulin Glargine 55 units 04/06/21 22:00 04/06/21 23:11 Insulin Glargine 100 Units/Ml SUB-Q 55 units QHS ANDREW Administration Insulin Human Lispro 0 unit 04/04/21 22:00 04/07/21 08:30 Insulin Lispro 100 Unit/Ml SUB-Q 3 unit ACHS ANDREW Administration Protocol Metoclopramide HCl 10 mg 04/04/21 20:50 Metoclopramide 10 Mg/2 Ml Inj IV Q6H PRN Nausea And Vomiting Ondansetron HCl 4 mg 04/04/21 20:44 Ondansetron 4 Mg/2 Ml Inj IV Q8H PRN Nausea And Vomiting Oxycodone/Acetaminophen 1 tab 04/04/21 20:50 Oxycodone /Acetaminophen 5-325mg Tab PO Q6H PRN Pain, Moderate (4-6) Pseudoephedrine/Acetam/Chlorphenir 10 ml 04/06/21 22:31 04/06/21 22:47 Guaifenesin/Codeine 100-10mg Oral Liqd 5 Ml PO 10 ml Q6HR PRN Administration Cough Sodium Chloride 10 ml 04/04/21 22:00 04/06/21 22:48 Sodium Chloride 0.9% 10 Ml Flush Syringe IV 10 ml BID ANDREW Administration Sodium Chloride 10 ml 04/04/21 20:44 Sodium Chloride 0.9% 10 Ml Flush Syringe IV PRN PRN LINE FLUSH Sodium Chloride 50 ml 04/06/21 15:30 04/06/21 19:34 Sodium Chloride 0.9% 50 Ml Ivpb IV 04/10/21 21:01 50 ml Q24HR@2100 [facility] Administration Zinc Sulfate 220 mg 04/05/21 10:00 04/06/21 22:47 Zinc Sulfate 220 Mg Cap PO 220 mg BID ANDREW Administration Nutrition/Malnutrition Assess - Dietary Evaluation Nutrition/Malnutrition Findings: Nutrition Notes Start: 04/05/21 09:12 Freq: Status: Active Protocol: Document 04/05/21 09:12 CHUNG (Rec: 04/05/21 09:15 [id number]) Nutrition Notes Need for Assessment generated from: MD Order Initial or Follow up Assessment Current Diagnosis Diabetes,Respiratory Failure Other Pertinent Diagnosis SIRS, pneu, COVID PUI Current Diet Consistent CHO Labs/Tests A1c 18.7 BG 382 Pertinent Medications Humalog Lantus Height 5 ft 11 in Weight 81.647 kg [place] Body Weight (kg) 78.18 BMI 25.1 Intake Prior to Admission Fair Weight Status Appropriate Subjective/Other Information MD consult for ONS. Pt reports low appetite [employer]ENT[employer] but it is coming back. No weight changes . Diet prefrences updated. Pt reports not taking DM medications due to trying to control DM through diet only. Encouraged pt to take medications. Pt changed to " plant based" diet with very low protein intake. Spoke with pt on how to increase protein and control CHO portions. 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 No Is Patient Ambulatory and/or Out of Bed Yes REE-([place]. Jeor-ambulatory/OOB) [ 2188.680 NUTR.[id number]] Calculation Used for Recommendations [place] or Additional Notes Protein: (0.8-1g/kg) 65-82g Fluid: 1 ml/kcal Nutrition Intervention Change Diet Order: continue with food prefrences Add Supplement/Snack (indicate name/kcal Glucerna BID /protein ) Provides kCal: 440 Provides Protein (gm) 20 Teaching Recipient Patient Learning Readiness Good Teaching Methods Discussion,Handout Response to Teaching Verbalize understanding Education Handouts Provided Consistent CHO Nutrition Therapy Reading Nutrition Labels Goals to increase protein and decrease CHO Barriers to Learning No Barriers RD phone number provided Yes Patient aware of follow up options Yes Goal #1 Meet at least 75% of energy and protein needs via PO and ONS Anticipated Discharge Needs: Consistent CHO Follow-Up By: 04/09/21 Additional Comments FU for any further diet education questions, intakes and ONS tolerance
[2021-04-07] MEDS: FAMOTIDINE 20 MG TAB PO SCH ×2 (10:55→22:48)
[2021-04-07] MEDS: CHOLECALCIFEROL (VIT D3) 5,000 UNIT TAB PO SCH (10:55)
[2021-04-07] MEDS: ASCORBIC ACID 500 MG TAB PO SCH ×2 (10:56→22:48)
[2021-04-07] MEDS: ZINC SULFATE 220 MG CAP PO SCH ×2 (10:56→22:49)
[2021-04-07] MEDS: dexAMETHasone 4 MG/ML VIAL IV SCH (10:57)
[2021-04-07] MEDS: REMDESIVIR 100 MG in SODIUM CHLORIDE 0.9% 250ML 250 ML IV SCH (22:47)
[2021-04-07] MEDS: INSULIN GLARGINE 100 UNITS/ML SUB-Q SCH (22:48)
[2021-04-07] MEDS: ENOXAPARIN 40 MG/0.4 ML INJ SUB-Q SCH (22:48)
[2021-04-07] MEDS: SODIUM CHLORIDE 0.9% 50 ML IVPB IV SCH (22:48)
[2021-04-08 07:17] LABS: Hematocrit 34.4 % (35.5-45.6); Hemoglobin 11.9 gm/dl (11.8-15.2); Mean Corpuscular HGB Conc 35 % (32-34); Mean Corpuscular Volume 92 fl (84-94); Platelet Count 337 K/mm3 (140-440); Red Blood Count 3.76 M/mm3 (3.65-5.03); Red Cell Distribution Width 13.7 % (13.2-15.2)
[2021-04-08 07:32] LABS: Alanine Aminotransferase 7 units/L (7-56); Albumin 2.9 g/dL (3.9-5); BUN/Creatinine Ratio 28; Blood Urea Nitrogen 17 mg/dL (9-20); Calcium 9.1 mg/dL (8.4-10.2); Hemolysis Index 4
[2021-04-08] MEDS: INSULIN LISPRO 100 UNIT/ML SUB-Q SCH ×4 (07:50→23:16)
[2021-04-08] MEDS: FAMOTIDINE 20 MG TAB PO SCH ×2 (09:31→21:42)
[2021-04-08] MEDS: dexAMETHasone 4 MG/ML VIAL IV SCH (09:31)
[2021-04-08] MEDS: ZINC SULFATE 220 MG CAP PO SCH ×2 (09:31→21:42)
[2021-04-08] MEDS: ASCORBIC ACID 500 MG TAB PO SCH ×2 (09:31→21:42)
[2021-04-08] MEDS: CHOLECALCIFEROL (VIT D3) 5,000 UNIT TAB PO SCH (09:31)
[2021-04-08] MEDS: guaiFENesin/CODEINE 100-10MG ORAL LIQD 5 ML PO PRN (09:44)
--- NOTE | 2021-04-08 11:12 | Progress Note ---
Assessment and Plan Assessment and plan: (1) Acute respiratory failure with hypoxia Current Visit: Yes Status: Acute Plan to address problem: Patient saturations were 88% on room air Patient initiated on 2 L of nasal cannula oxygen Possible Covid pneumonia Patient counseled about Covid vaccination Adjust oxygen supplementation as necessary (2) SIRS (systemic inflammatory response syndrome) Current Visit: Yes Status: Acute Plan to address problem: All inflammatory markers including D-dimer and CRP lactate dehydrogenase and ferritin are elevated IV Decadron and IV antibiotics for now (3) Bilateral pneumonia Current Visit: Yes Status: Acute Plan to address problem: Patient initiated on Zithromax and ceftriaxone ID consult requested (4) Suspected 2019 novel coronavirus infection Current Visit: Yes Status: Acute Plan to address problem: Coronavirus PCR in a.m. (5) Insulin dependent diabetes mellitus Current Visit: Yes Status: Acute Plan to address problem: Patient on high-dose sliding scale coverage and Lantus (6) Hyponatremia Current Visit: Yes Status: Acute Plan to address problem: IV fluids for 10 hours of normal saline (7) Malnutrition Current Visit: Yes Status: Chronic Qualifiers: Protein-calorie malnutrition severity: moderate Plan to address problem: Albumin level of 2.7 Dietary supplements initiated (8) DVT prophylaxis Current Visit: Yes Status: Acute Plan to address problem: On Lovenox and GI prophylaxis 04/05/21 Patient with acute respiratory failure secondary to bilateral pneumonia. He is PUI to r/o Covid-19 infection. Diabetes uncontrolled. Bld glucose 538 with A1C of 18.7. Will Increase lantus to 45 Units subcut q hs Give Humalog 16 Units subcut now 04/06/21 Patient with acute resp failure secondary to Covid Pneumonia. Diabetes uncontrolled. Will Increase Lantus to 55 Units qhs He stated he had stopped taking Insulin for about 6 months 04/07/21 Patient with acute resp failure secondary to Covid Pneumonia. Diabetes uncontrolled, but improving. Continue lantus at 55 Units qhs 04/08/21 Patient with acute resp failure secondary to Covid Pneumonia. On Remdesivir Now on oxygen at 3 l/min NC Diabetes uncontrolled, but improving. Will increase Lantus to 60 Units QHS History Interval history: shortness of breath Blood glucose elevated but improving Hospitalist Physical - Physical exam Narrative exam: Gen:Not in acute distress, lying in bed HEENT:Normocephalic, atraumatic Neck:supple, no JVD Lungs: Bilateral rales, no rhonchi Heart:S1 and S2 reg, no murmurs, rubs or gallop Abd:Soft, non tender, non distended, normal bowel sounds Ext:No edema. no clubbing, no cyanosis Neuro:awake,alert, oriented x 3, moves all ext - Constitutional Vitals: Temp Pulse Resp BP Pulse Ox 97.6 F 46 L 16 135/84 95 04/08/21 03:03 04/08/21 03:03 04/08/21 03:03 04/08/21 03:03 04/08/21 09:23 General appearance: Present: well-nourished HEART Score - HEART Score Troponin: Troponin T < 0.010 ng/mL (0.00-0.029) 04/04/21 14:13 Results - Labs CBC & Chem 7: 04/08/21 06:52 04/08/21 06:52 Labs: Laboratory Last Values WBC 7.1 K/mm3 (4.5-11.0) 04/08/21 06:52 RBC 3.76 M/mm3 (3.65-5.03) 04/08/21 06:52 Hgb 11.9 gm/dl (11.8-15.2) 04/08/21 06:52 Hct 34.4 % (35.5-45.6) L 04/08/21 06:52 MCV 92 fl (84-94) 04/08/21 06:52 MCH 32 pg (28-32) 04/08/21 06:52 MCHC 35 % (32-34) H 04/08/21 06:52 RDW 13.7 % (13.2-15.2) 04/08/21 06:52 Plt Count 337 K/mm3 (140-440) 04/08/21 06:52 Lymph % (Auto) 18.0 % (13.4-35.0) 04/04/21 13:18 Worth % (Auto) 6.7 % (0.0-7.3) 04/04/21 13:18 Eos % (Auto) 0.0 % (0.0-4.3) 04/04/21 13:18 Baso % (Auto) 0.4 % (0.0-1.8) 04/04/21 13:18 Lymph # (Auto) 1.1 K/mm3 (1.2-5.4) L 04/04/21 13:18 Worth # (Auto) 0.4 K/mm3 (0.0-0.8) 04/04/21 13:18 Eos # (Auto) 0.0 K/mm3 (0.0-0.4) 04/04/21 13:18 Baso # (Auto) 0.0 K/mm3 (0.0-0.1) 04/04/21 13:18 Add Manual Diff Complete 04/05/21 06:16 Total Counted 100 04/05/21 06:16 Seg Neutrophils % 74.9 % (40.0-70.0) H 04/04/21 13:18 Seg Neuts % (Manual) 74.0 % (40.0-70.0) H 04/05/21 06:16 Band Neutrophils % 1.0 % 04/05/21 06:16 Lymphocytes % (Manual) 22.0 % (13.4-35.0) 04/05/21 06:16 Monocytes % (Manual) 3.0 % (0.0-7.3) 04/05/21 06:16 Nucleated RBC % Not Reportable 04/05/21 06:16 Seg Neutrophils # 4.6 K/mm3 (1.8-7.7) 04/04/21 13:18 Seg Neutrophils # Man 3.0 K/mm3 (1.8-7.7) 04/05/21 06:16 Band Neutrophils # 0.0 K/mm3 04/05/21 06:16 Lymphocytes # (Manual) 0.9 K/mm3 (1.2-5.4) L 04/05/21 06:16 Abs React Lymphs (Man) 0.0 K/mm3 04/05/21 06:16 Monocytes # (Manual) 0.1 K/mm3 (0.0-0.8) 04/05/21 06:16 Eosinophils # (Manual) 0.0 K/mm3 (0.0-0.4) 04/05/21 06:16 Basophils # (Manual) 0.0 K/mm3 (0.0-0.1) 04/05/21 06:16 Metamyelocytes # 0.0 K/mm3 04/05/21 06:16 Myelocytes # 0.0 K/mm3 04/05/21 06:16 Promyelocytes # 0.0 K/mm3 04/05/21 06:16 Blast Cells # 0.0 K/mm3 04/05/21 06:16 WBC Morphology Not Reportable 04/05/21 06:16 Hypersegmented Neuts Not Reportable 04/05/21 06:16 Hyposegmented Neuts Not Reportable 04/05/21 06:16 Hypogranular Neuts Not Reportable 04/05/21 06:16 Smudge Cells Not Reportable 04/05/21 06:16 Toxic Granulation Not Reportable 04/05/21 06:16 Toxic Vacuolation Not Reportable 04/05/21 06:16 Dohle Bodies Not Reportable 04/05/21 06:16 Pelger-Huet Anomaly Not Reportable 04/05/21 06:16 Raymundo Rods Not Reportable 04/05/21 06:16 Platelet Estimate Consistent w auto 04/05/21 06:16 Clumped Platelets Not Reportable 04/05/21 06:16 Plt Clumps, EDTA Not Reportable 04/05/21 06:16 Large Platelets Not Reportable 04/05/21 06:16 Giant Platelets Not Reportable 04/05/21 06:16 Platelet Satelliting Not Reportable 04/05/21 06:16 Plt Morphology Comment Not Reportable 04/05/21 06:16 RBC Morphology Not Reportable 04/05/21 06:16 Dimorphic RBCs Not Reportable 04/05/21 06:16 Polychromasia Not Reportable 04/05/21 06:16 Hypochromasia Not Reportable 04/05/21 06:16 Poikilocytosis Not Reportable 04/05/21 06:16 Anisocytosis 1+ 04/05/21 06:16 Microcytosis Not Reportable 04/05/21 06:16 Macrocytosis Not Reportable 04/05/21 06:16 Spherocytes Not Reportable 04/05/21 06:16 Pappenheimer Bodies Not Reportable 04/05/21 06:16 Sickle Cells Not Reportable 04/05/21 06:16 Target Cells Not Reportable 04/05/21 06:16 Tear Drop Cells Not Reportable 04/05/21 06:16 Ovalocytes Not Reportable 04/05/21 06:16 Helmet Cells Not Reportable 04/05/21 06:16 [place] Bodies Not Reportable 04/05/21 06:16 [place] Rings Not Reportable 04/05/21 06:16 Lanny Cells Not Reportable 04/05/21 06:16 Bite Cells Not Reportable 04/05/21 06:16 Crenated Cell Not Reportable 04/05/21 06:16 Elliptocytes Not Reportable 04/05/21 06:16 Acanthocytes (Spur) Not Reportable 04/05/21 06:16 Rouleaux Not Reportable 04/05/21 06:16 Hemoglobin C Crystals Not Reportable 04/05/21 06:16 Schistocytes Not Reportable 04/05/21 06:16 Malaria parasites Not Reportable 04/05/21 06:16 Toni Bodies Not Reportable 04/05/21 06:16 Hem Pathologist Commnt No 04/05/21 06:16 D-Dimer 6891.55 ng/mlDDU (0-234) H 04/04/21 13:18 Sodium 136 mmol/L (137-145) L 04/08/21 06:52 Potassium 4.1 mmol/L (3.6-5.0) 04/08/21 06:52 Chloride 100.1 mmol/L (98-107) 04/08/21 06:52 Carbon Dioxide 26 mmol/L (22-30) 04/08/21 06:52 Anion Gap 14 mmol/L 04/08/21 06:52 BUN 17 mg/dL (9-20) 04/08/21 06:52 Creatinine 0.6 mg/dL (0.8-1.3) L 04/08/21 06:52 Estimated GFR > 60 ml/min 04/08/21 06:52 BUN/Creatinine Ratio 28 % 04/08/21 06:52 Glucose 251 mg/dL (75-100) H 04/08/21 06:52 POC Glucose 246 mg/dL (70-105) H 04/08/21 07:39 Hemoglobin A1c 18.7 % (4-6) H 04/05/21 06:16 Lactic Acid 1.80 mmol/L (0.7-2.0) 04/04/21 13:18 Calcium 9.1 mg/dL (8.4-10.2) 04/08/21 06:52 Ferritin 916.4 ng/mL (30.0-300.0) H 04/04/21 13:18 Total Bilirubin 0.30 mg/dL (0.1-1.2) 04/08/21 06:52 AST 13 units/L (5-40) 04/08/21 06:52 ALT 7 units/L (7-56) 04/08/21 06:52 Alkaline Phosphatase 61 units/L (35-129) 04/08/21 06:52 Lactate Dehydrogenase 546 units/L (91-180) H 04/04/21 13:18 Troponin T < 0.010 ng/mL (0.00-0.029) 04/04/21 14:13 C-Reactive Protein 28.00 mg/dL (0.00-1.30) H 04/04/21 13:18 Total Protein 5.8 g/dL (6.3-8.2) L 04/08/21 06:52 Albumin 2.9 g/dL (3.9-5) L 04/08/21 06:52 Albumin/Globulin Ratio 1.0 % 04/08/21 06:52 Procalcitonin 0.05 ng/mL (<0.15) 04/04/21 13:18 Coronavirus (PCR) Positive (Negative) A 04/04/21 09:50 Microbiology: Microbiology 04/04/21 13:18 Peripheral/Venous Blood Culture - Preliminary NO GROWTH AFTER 72 HOURS 04/04/21 13:18 Peripheral/Venous Blood Culture - Preliminary NO GROWTH AFTER 72 HOURS Handy/IV: Voiding Method Toilet Active Medications - Current Medications Current Medications: Generic Name Dose Route Start Last Admin Trade Name Yuki PRN Reason Stop Dose Admin Acetaminophen 650 mg 04/04/21 20:44 Acetaminophen 325 Mg Tab PO Q4H PRN Pain MILD(1-3)/Fever >100.5/DOMINGO Ascorbic Acid 1,000 mg 04/05/21 10:00 04/08/21 09:31 Ascorbic Acid 500 Mg Tab PO 1,000 mg BID ANDREW Administration Cholecalciferol 5,000 unit 04/05/21 10:00 04/08/21 09:31 Cholecalciferol (Vit D3) 5,000 Unit Tab PO 5,000 unit DAILY ANDREW Administration Dexamethasone 8 mg 04/05/21 10:00 04/08/21 09:31 Dexamethasone 4 Mg/Ml Vial IV 04/13/21 10:01 8 mg Q24HR ANDREW Administration Enoxaparin Sodium 40 mg 04/04/21 21:00 04/07/21 22:48 Enoxaparin 40 Mg/0.4 Ml Inj SUB-Q 40 mg DAILY@2100 ANDRWE Administration Famotidine 20 mg 04/04/21 22:00 04/08/21 09:31 Famotidine 20 Mg Tab PO 20 mg BID ANDREW Administration Hydromorphone HCl 0.5 mg 04/04/21 20:50 Hydromorphone 1 Mg/1 Ml Inj IV Q3H PRN Pain , Severe (7-10) REMDESIVIR 100 mg/ Sodium 250 mls @ 500 mls/hr 04/07/21 21:00 04/07/21 22:47 Chloride IV 04/10/21 21:29 500 mls/hr Q24HR@2100 [facility] Administration Insulin Glargine 60 units 04/08/21 22:00 Insulin Glargine 100 Units/Ml SUB-Q QHS [facility] Insulin Human Lispro 0 unit 04/04/21 22:00 04/08/21 07:50 Insulin Lispro 100 Unit/Ml SUB-Q 3 unit ACHS [facility] Administration Protocol Metoclopramide HCl 10 mg 04/04/21 20:50 Metoclopramide 10 Mg/2 Ml Inj IV Q6H PRN Nausea And Vomiting Ondansetron HCl 4 mg 04/04/21 20:44 Ondansetron 4 Mg/2 Ml Inj IV Q8H PRN Nausea And Vomiting Oxycodone/Acetaminophen 1 tab 04/04/21 20:50 Oxycodone /Acetaminophen 5-325mg Tab PO Q6H PRN Pain, Moderate (4-6) Pseudoephedrine/Acetam/Chlorphenir 10 ml 04/06/21 22:31 04/08/21 09:44 Guaifenesin/Codeine 100-10mg Oral Liqd 5 Ml PO 10 ml Q6HR PRN Administration Cough Sodium Chloride 10 ml 04/04/21 22:00 04/08/21 09:32 Sodium Chloride 0.9% 10 Ml Flush Syringe IV 10 ml BID ANDREW Administration Sodium Chloride 10 ml 04/04/21 20:44 Sodium Chloride 0.9% 10 Ml Flush Syringe IV PRN PRN LINE FLUSH Sodium Chloride 50 ml 04/06/21 15:30 04/07/21 22:48 Sodium Chloride 0.9% 50 Ml Ivpb IV 04/10/21 21:01 50 ml Q24HR@2100 ANDREW Administration Zinc Sulfate 220 mg 04/05/21 10:00 04/08/21 09:31 Zinc Sulfate 220 Mg Cap PO 220 mg BID ANDREW Administration Nutrition/Malnutrition Assess - Dietary Evaluation Nutrition/Malnutrition Findings: Nutrition Notes Start: 04/05/21 09:12 Freq: Status: Active Protocol: Document 04/05/21 09:12 CHUNG (Rec: 04/05/21 09:15 [email or web address]) Nutrition Notes Need for Assessment generated from: MD Order Initial or Follow up Assessment Current Diagnosis Diabetes,Respiratory Failure Other Pertinent Diagnosis SIRS, pneu, COVID PUI Current Diet Consistent CHO Labs/Tests A1c 18.7 BG 382 Pertinent Medications Humalog Lantus Height 5 ft 11 in Weight 81.647 kg [place] Body Weight (kg) 78.18 BMI 25.1 Intake Prior to Admission Fair Weight Status Appropriate Subjective/Other Information MD consult for ONS. 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 No weight changes . Diet prefrences updated. Pt reports not taking DM medications due to trying to control DM through diet only. Encouraged pt to take medications. Pt changed to " plant based" diet with very low protein intake. Spoke with pt on how to increase protein and control CHO portions. 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 No Is Patient Ambulatory and/or Out of Bed Yes REE-([facility]-ambulatory/OOB) [ [id number] [id number]] [facility] Additional Notes Protein: (0.8-1g/kg) 65-82g Fluid: 1 ml/kcal Nutrition Intervention Change Diet Order: continue with food prefrences Add Supplement/Snack (indicate name/kcal Glucerna BID /protein ) Provides kCal: 440 Provides Protein (gm) 20 Teaching Recipient Patient Learning Readiness Good Teaching Methods Discussion,Handout Response to Teaching Verbalize understanding Education Handouts Provided Consistent CHO Nutrition Therapy Reading Nutrition Labels Goals to increase protein and decrease CHO Barriers to Learning No Barriers RD phone number provided Yes Patient aware of follow up options Yes Goal #1 Meet at least 75% of energy and protein needs via PO and ONS Anticipated Discharge Needs: Consistent CHO Follow-Up By: 04/09/21 Additional Comments FU for any further diet education questions, intakes and ONS tolerance
[2021-04-08] MEDS: REMDESIVIR 100 MG in SODIUM CHLORIDE 0.9% 250ML 250 ML IV SCH (21:44)
[2021-04-08] MEDS: ENOXAPARIN 40 MG/0.4 ML INJ SUB-Q SCH (21:44)
[2021-04-08] MEDS: SODIUM CHLORIDE 0.9% 50 ML IVPB IV SCH (22:46)
[2021-04-08] MEDS: INSULIN GLARGINE 100 UNITS/ML SUB-Q SCH (23:15)
[2021-04-09 07:23] LABS: Alanine Aminotransferase 7 units/L (7-56); Albumin 2.7 g/dL (3.9-5); Blood Urea Nitrogen 15 mg/dL (9-20); Calcium 9.1 mg/dL (8.4-10.2); Hemolysis Index 14
[2021-04-09 07:30] LABS: BUN/Creatinine Ratio 25
[2021-04-09] MEDS: POTASSIUM CHLORIDE ER 20 MEQ TAB PO SCH ×2 (09:52→13:25)
[2021-04-09] MEDS: ASCORBIC ACID 500 MG TAB PO SCH ×2 (09:52→23:11)
[2021-04-09] MEDS: dexAMETHasone 4 MG/ML VIAL IV SCH (09:52)
[2021-04-09] MEDS: FAMOTIDINE 20 MG TAB PO SCH ×2 (09:53→23:11)
[2021-04-09] MEDS: ZINC SULFATE 220 MG CAP PO SCH ×2 (09:53→23:16)
[2021-04-09] MEDS: CHOLECALCIFEROL (VIT D3) 5,000 UNIT TAB PO SCH (09:53)
[2021-04-09] MEDS: INSULIN LISPRO 100 UNIT/ML SUB-Q SCH ×4 (09:53→23:13)
--- NOTE | 2021-04-09 11:29 | Progress Note ---
Assessment and Plan Assessment and plan: (1) Acute respiratory failure with hypoxia Current Visit: Yes Status: Acute Plan to address problem: Patient saturations were 88% on room air Patient initiated on 2 L of nasal cannula oxygen Possible Covid pneumonia Patient counseled about Covid vaccination Adjust oxygen supplementation as necessary (2) SIRS (systemic inflammatory response syndrome) Current Visit: Yes Status: Acute Plan to address problem: All inflammatory markers including D-dimer and CRP lactate dehydrogenase and ferritin are elevated IV Decadron and IV antibiotics for now (3) Bilateral pneumonia Current Visit: Yes Status: Acute Plan to address problem: Patient initiated on Zithromax and ceftriaxone ID consult requested (4) Suspected 2019 novel coronavirus infection Current Visit: Yes Status: Acute Plan to address problem: Coronavirus PCR in a.m. (5) Insulin dependent diabetes mellitus Current Visit: Yes Status: Acute Plan to address problem: Patient on high-dose sliding scale coverage and Lantus (6) Hyponatremia Current Visit: Yes Status: Acute Plan to address problem: IV fluids for 10 hours of normal saline (7) Malnutrition Current Visit: Yes Status: Chronic Qualifiers: Protein-calorie malnutrition severity: moderate Plan to address problem: Albumin level of 2.7 Dietary supplements initiated (8) DVT prophylaxis Current Visit: Yes Status: Acute Plan to address problem: On Lovenox and GI prophylaxis 04/05/21 Patient with acute respiratory failure secondary to bilateral pneumonia. He is PUI to r/o Covid-19 infection. Diabetes uncontrolled. Bld glucose 538 with A1C of 18.7. Will Increase lantus to 45 Units subcut q hs Give Humalog 16 Units subcut now 04/06/21 Patient with acute resp failure secondary to Covid Pneumonia. Diabetes uncontrolled. Will Increase Lantus to 55 Units qhs He stated he had stopped taking Insulin for about 6 months 04/07/21 Patient with acute resp failure secondary to Covid Pneumonia. Diabetes uncontrolled, but improving. Continue lantus at 55 Units qhs 04/08/21 Patient with acute resp failure secondary to Covid Pneumonia. On Remdesivir Now on oxygen at 3 l/min NC Diabetes uncontrolled, but improving. Will increase Lantus to 60 Units QHS 04/08/21 Patient with acute resp failure secondary to Covid Pneumonia. On Remdesivir Now on oxygen at 2 l/min NC, was at 3l/min yesterday Diabetes uncontrolled, but improving. Continue Lantus at 60 Units QHS Bradycardia:Obtain EKG, consult Cardiology History Interval history: Less shortness of breath Heart rate in 40s Blood glucose elevated but improving Hospitalist Physical - Physical exam Narrative exam: Gen:Not in acute distress, lying in bed HEENT:Normocephalic, atraumatic Neck:supple, no JVD Lungs: Bilateral rales, no rhonchi Heart:S1 and S2 reg, no murmurs, rubs or gallop Abd:Soft, non tender, non distended, normal bowel sounds Ext:No edema. no clubbing, no cyanosis Neuro:awake,alert, oriented x 3, moves all ext - Constitutional Vitals: Temp Pulse Resp BP Pulse Ox 98.3 F 46 L 18 119/77 95 04/09/21 05:40 04/09/21 05:40 04/09/21 05:40 04/09/21 05:40 04/09/21 10:00 General appearance: Present: well-nourished HEART Score - HEART Score Troponin: Troponin T < 0.010 ng/mL (0.00-0.029) 04/04/21 14:13 Results - Labs CBC & Chem 7: 04/08/21 06:52 04/09/21 05:36 Labs: Laboratory Last Values WBC 7.1 K/mm3 (4.5-11.0) 04/08/21 06:52 RBC 3.76 M/mm3 (3.65-5.03) 04/08/21 06:52 Hgb 11.9 gm/dl (11.8-15.2) 04/08/21 06:52 Hct 34.4 % (35.5-45.6) L 04/08/21 06:52 MCV 92 fl (84-94) 04/08/21 06:52 MCH 32 pg (28-32) 04/08/21 06:52 MCHC 35 % (32-34) H 04/08/21 06:52 RDW 13.7 % (13.2-15.2) 04/08/21 06:52 Plt Count 337 K/mm3 (140-440) 04/08/21 06:52 Lymph % (Auto) 18.0 % (13.4-35.0) 04/04/21 13:18 [place] % (Auto) 6.7 % (0.0-7.3) 04/04/21 13:18 Eos % (Auto) 0.0 % (0.0-4.3) 04/04/21 13:18 Baso % (Auto) 0.4 % (0.0-1.8) 04/04/21 13:18 Lymph # (Auto) 1.1 K/mm3 (1.2-5.4) L 04/04/21 13:18 [place] # (Auto) 0.4 K/mm3 (0.0-0.8) 04/04/21 13:18 Eos # (Auto) 0.0 K/mm3 (0.0-0.4) 04/04/21 13:18 Baso # (Auto) 0.0 K/mm3 (0.0-0.1) 04/04/21 13:18 Add Manual Diff Complete 04/05/21 06:16 Total Counted 100 04/05/21 06:16 Seg Neutrophils % 74.9 % (40.0-70.0) H 04/04/21 13:18 Seg Neuts % (Manual) 74.0 % (40.0-70.0) H 04/05/21 06:16 Band Neutrophils % 1.0 % 04/05/21 06:16 Lymphocytes % (Manual) 22.0 % (13.4-35.0) 04/05/21 06:16 Monocytes % (Manual) 3.0 % (0.0-7.3) 04/05/21 06:16 Nucleated RBC % Not Reportable 04/05/21 06:16 Seg Neutrophils # 4.6 K/mm3 (1.8-7.7) 04/04/21 13:18 Seg Neutrophils # Man 3.0 K/mm3 (1.8-7.7) 04/05/21 06:16 Band Neutrophils # 0.0 K/mm3 04/05/21 06:16 Lymphocytes # (Manual) 0.9 K/mm3 (1.2-5.4) L 04/05/21 06:16 Abs React Lymphs (Man) 0.0 K/mm3 04/05/21 06:16 Monocytes # (Manual) 0.1 K/mm3 (0.0-0.8) 04/05/21 06:16 Eosinophils # (Manual) 0.0 K/mm3 (0.0-0.4) 04/05/21 06:16 Basophils # (Manual) 0.0 K/mm3 (0.0-0.1) 04/05/21 06:16 Metamyelocytes # 0.0 K/mm3 04/05/21 06:16 Myelocytes # 0.0 K/mm3 04/05/21 06:16 Promyelocytes # 0.0 K/mm3 04/05/21 06:16 Blast Cells # 0.0 K/mm3 04/05/21 06:16 WBC Morphology Not Reportable 04/05/21 06:16 Hypersegmented Neuts Not Reportable 04/05/21 06:16 Hyposegmented Neuts Not Reportable 04/05/21 06:16 Hypogranular Neuts Not Reportable 04/05/21 06:16 Smudge Cells Not Reportable 04/05/21 06:16 Toxic Granulation Not Reportable 04/05/21 06:16 Toxic Vacuolation Not Reportable 04/05/21 06:16 Dohle Bodies Not Reportable 04/05/21 06:16 Pelger-Huet Anomaly Not Reportable 04/05/21 06:16 Raymundo Rods Not Reportable 04/05/21 06:16 Platelet Estimate Consistent w auto 04/05/21 06:16 Clumped Platelets Not Reportable 04/05/21 06:16 Plt Clumps, EDTA Not Reportable 04/05/21 06:16 Large Platelets Not Reportable 04/05/21 06:16 Giant Platelets Not Reportable 04/05/21 06:16 Platelet Satelliting Not Reportable 04/05/21 06:16 Plt Morphology Comment Not Reportable 04/05/21 06:16 RBC Morphology Not Reportable 04/05/21 06:16 Dimorphic RBCs Not Reportable 04/05/21 06:16 Polychromasia Not Reportable 04/05/21 06:16 Hypochromasia Not Reportable 04/05/21 06:16 Poikilocytosis Not Reportable 04/05/21 06:16 Anisocytosis 1+ 04/05/21 06:16 Microcytosis Not Reportable 04/05/21 06:16 Macrocytosis Not Reportable 04/05/21 06:16 Spherocytes Not Reportable 04/05/21 06:16 Pappenheimer Bodies Not Reportable 04/05/21 06:16 Sickle Cells Not Reportable 04/05/21 06:16 Target Cells Not Reportable 04/05/21 06:16 Tear Drop Cells Not Reportable 04/05/21 06:16 Ovalocytes Not Reportable 04/05/21 06:16 Helmet Cells Not Reportable 04/05/21 06:16 [place] Bodies Not Reportable 04/05/21 06:16 [place] Rings Not Reportable 04/05/21 06:16 Lanny Cells Not Reportable 04/05/21 06:16 Bite Cells Not Reportable 04/05/21 06:16 Crenated Cell Not Reportable 04/05/21 06:16 Elliptocytes Not Reportable 04/05/21 06:16 Acanthocytes (Spur) Not Reportable 04/05/21 06:16 Rouleaux Not Reportable 04/05/21 06:16 Hemoglobin C Crystals Not Reportable 04/05/21 06:16 Schistocytes Not Reportable 04/05/21 06:16 Malaria parasites Not Reportable 04/05/21 06:16 Toni Bodies Not Reportable 04/05/21 06:16 Hem Pathologist Commnt No 04/05/21 06:16 D-Dimer 6891.55 ng/mlDDU (0-234) H 04/04/21 13:18 Sodium 134 mmol/L (137-145) L 04/09/21 05:36 Potassium 3.5 mmol/L (3.6-5.0) L 04/09/21 05:36 Chloride 97.7 mmol/L (98-107) L 04/09/21 05:36 Carbon Dioxide 26 mmol/L (22-30) 04/09/21 05:36 Anion Gap 14 mmol/L 04/09/21 05:36 BUN 15 mg/dL (9-20) 04/09/21 05:36 Creatinine 0.6 mg/dL (0.8-1.3) L 04/09/21 05:36 Estimated GFR > 60 ml/min 04/09/21 05:36 BUN/Creatinine Ratio 25 % 04/09/21 05:36 Glucose 236 mg/dL (75-100) H 04/09/21 05:36 POC Glucose 321 mg/dL (70-105) H 04/08/21 22:03 Hemoglobin A1c 18.7 % (4-6) H 04/05/21 06:16 Lactic Acid 1.80 mmol/L (0.7-2.0) 04/04/21 13:18 Calcium 9.1 mg/dL (8.4-10.2) 04/09/21 05:36 Ferritin 916.4 ng/mL (30.0-300.0) H 04/04/21 13:18 Total Bilirubin 0.20 mg/dL (0.1-1.2) 04/09/21 05:36 AST 13 units/L (5-40) 04/09/21 05:36 ALT 7 units/L (7-56) 04/09/21 05:36 Alkaline Phosphatase 59 units/L (35-129) 04/09/21 05:36 Lactate Dehydrogenase 546 units/L (91-180) H 04/04/21 13:18 Troponin T < 0.010 ng/mL (0.00-0.029) 04/04/21 14:13 C-Reactive Protein 28.00 mg/dL (0.00-1.30) H 04/04/21 13:18 Total Protein 5.5 g/dL (6.3-8.2) L 04/09/21 05:36 Albumin 2.7 g/dL (3.9-5) L 04/09/21 05:36 Albumin/Globulin Ratio 1.0 % 04/09/21 05:36 Procalcitonin 0.05 ng/mL (<0.15) 04/04/21 13:18 Coronavirus (PCR) Positive (Negative) A 04/04/21 09:50 Microbiology: Microbiology 04/04/21 13:18 Peripheral/Venous Blood Culture - Preliminary NO GROWTH AFTER 4 DAYS 04/04/21 13:18 Peripheral/Venous Blood Culture - Preliminary NO GROWTH AFTER 4 DAYS Handy/IV: Voiding Method Toilet Active Medications - Current Medications Current Medications: Generic Name Dose Route Start Last Admin Trade Name Freq PRN Reason Stop Dose Admin Acetaminophen 650 mg 04/04/21 20:44 Acetaminophen 325 Mg Tab PO Q4H PRN Pain MILD(1-3)/Fever >100.5/DOMINGO Ascorbic Acid 1,000 mg 04/05/21 10:00 04/09/21 09:52 Ascorbic Acid 500 Mg Tab PO 1,000 mg BID NADREW Administration Cholecalciferol 5,000 unit 04/05/21 10:00 04/09/21 09:53 Cholecalciferol (Vit D3) 5,000 Unit Tab PO 5,000 unit DAILY ANDREW Administration Dexamethasone 8 mg 04/05/21 10:00 04/09/21 09:52 Dexamethasone 4 Mg/Ml Vial IV 04/13/21 10:01 8 mg Q24HR ANDREW Administration Enoxaparin Sodium 40 mg 04/04/21 21:00 04/08/21 21:44 Enoxaparin 40 Mg/0.4 Ml Inj SUB-Q 40 mg DAILY@2100 ANDREW Administration Famotidine 20 mg 04/04/21 22:00 04/09/21 09:53 Famotidine 20 Mg Tab PO 20 mg BID ANDREW Administration Hydromorphone HCl 0.5 mg 04/04/21 20:50 Hydromorphone 1 Mg/1 Ml Inj IV Q3H PRN Pain , Severe (7-10) REMDESIVIR 100 mg/ Sodium 250 mls @ 500 mls/hr 04/07/21 21:00 04/08/21 21:44 Chloride IV 04/10/21 21:29 500 mls/hr Q24HR@2100 [facility] Administration Insulin Glargine 60 units 04/08/21 22:00 04/08/21 23:15 Insulin Glargine 100 Units/Ml SUB-Q 60 units QHS [facility] Administration Insulin Human Lispro 0 unit 04/04/21 22:00 04/09/21 09:53 Insulin Lispro 100 Unit/Ml SUB-Q 4 unit ACHS [facility] Administration Protocol Metoclopramide HCl 10 mg 04/04/21 20:50 Metoclopramide 10 Mg/2 Ml Inj IV Q6H PRN Nausea And Vomiting Ondansetron HCl 4 mg 04/04/21 20:44 Ondansetron 4 Mg/2 Ml Inj IV Q8H PRN Nausea And Vomiting Oxycodone/Acetaminophen 1 tab 04/04/21 20:50 Oxycodone /Acetaminophen 5-325mg Tab PO Q6H PRN Pain, Moderate (4-6) Potassium Chloride 40 meq 04/09/21 08:00 04/09/21 09:52 Potassium Chloride Er 20 Meq Tab PO 04/09/21 14:01 40 meq Q6H [facility] Administration Pseudoephedrine/Acetam/Chlorphenir 10 ml 04/06/21 22:31 04/08/21 09:44 Guaifenesin/Codeine 100-10mg Oral Liqd 5 Ml PO 10 ml Q6HR PRN Administration Cough Sodium Chloride 10 ml 04/04/21 22:00 04/09/21 09:54 Sodium Chloride 0.9% 10 Ml Flush Syringe IV 10 ml BID ANDREW Administration Sodium Chloride 10 ml 04/04/21 20:44 Sodium Chloride 0.9% 10 Ml Flush Syringe IV PRN PRN LINE FLUSH Sodium Chloride 50 ml 04/06/21 15:30 04/08/21 22:46 Sodium Chloride 0.9% 50 Ml Ivpb IV 04/10/21 21:01 50 ml Q24HR@2100 ANDREW Administration Zinc Sulfate 220 mg 04/05/21 10:00 04/09/21 09:53 Zinc Sulfate 220 Mg Cap PO 220 mg BID ANDREW Administration Nutrition/Malnutrition Assess - Dietary Evaluation Nutrition/Malnutrition Findings: Nutrition Notes Start: 04/05/21 09:12 Freq: Status: Active Protocol: Document 04/05/21 09:12 CHUNG (Rec: 04/05/21 09:15 [id number]) Nutrition Notes Need for Assessment generated from: MD Order Initial or Follow up Assessment Current Diagnosis Diabetes,Respiratory Failure Other Pertinent Diagnosis SIRS, pneu, COVID PUI Current Diet Consistent CHO Labs/Tests A1c 18.7 BG 382 Pertinent Medications Humalog Lantus Height 5 ft 11 in Weight 81.647 kg [place] Body Weight (kg) 78.18 BMI 25.1 Intake Prior to Admission Fair Weight Status Appropriate Subjective/Other Information MD consult for ONS. Pt reports low appetite [employer] but it is coming back. No weight changes . Diet prefrences updated. Pt reports not taking DM medications due to trying to control DM through diet only. Encouraged pt to take medications. Pt changed to " plant based" diet with very low protein intake. Spoke with pt on how to increase protein and control CHO portions. Burn Absent Trauma Absent GI Symptoms None Current % PO Poor (25-49%) Minimum of two criteria No physical signs of malnutrition #2 Nutrition Diagnosis Limited adherence to nutrition -related recommendations Etiology limited understanding of prior education As Evidenced by Signs and Symptoms A1c 18.7, pt eating low protein, high CHO/fat meals #1 Nutrition Diagnosis Inadequate oral intake Etiology acute illness As Evidenced by Signs and Symptoms pt eating <50% of EER for "few days" [employer] Is patient on ventilator? No Is Patient Ambulatory and/or Out of Bed Yes REE-([facility] [place]-ambulatory/OOB) [ [phone] [id number]] Calculation Used for Recommendations [facility] Additional Notes Protein: (0.8-1g/kg) 65-82g Fluid: 1 ml/kcal Nutrition Intervention Change Diet Order: continue with food prefrences Add Supplement/Snack (indicate name/kcal Glucerna BID /protein ) Provides kCal: 440 Provides Protein (gm) 20 Teaching Recipient Patient Learning Readiness Good Teaching Methods Discussion,Handout Response to Teaching Verbalize understanding Education Handouts Provided Consistent CHO Nutrition Therapy Reading Nutrition Labels Goals to increase protein and decrease CHO Barriers to Learning No Barriers RD phone number provided Yes Patient aware of follow up options Yes Goal #1 Meet at least 75% of energy and protein needs via PO and ONS Anticipated Discharge Needs: Consistent CHO Follow-Up By: 04/09/21 Additional Comments FU for any further diet education questions, intakes and ONS tolerance
--- NOTE | 2021-04-09 15:21 | Progress Note ---
Assessment and Plan Cultures: Blood culture no growth so far COVID-19 PCR: Positive A/P: 55-year-old man past medical history insulin-dependent diabetes admitted as Covid PUI. #Covid pneumonia: With bilateral pneumonia. PCR positive. Elevated inflammatory markers. #Acute hypoxemic respiratory failure: Likely secondary to COVID-19 infection. Currently on 5 L nasal cannula. #Diabetes: tight glycemic control for best outcomes. Recs: -Dexamethasone daily for 10 days -Continue remdesivir for 5 days -Monitor q48-72h inflammatory markers - ferritin, Ddimer, CRP, LDH -Anticoagulation per hospital protocol -Proning as able Jinny Zuluaga MD, FACP [facility] ([facility]) O: [phone] F: [phone] Subjective Date of service: 04/09/21 Interval history: Afebrile. Remains on oxygen by nasal cannula. Objective - Exam Narrative Exam: Physical Exam (reviewed in chart to minimize risk of transmission) Constitutional: deferred Head, Ears, Nose: deferred Eyes: deferred Neck: deferred Oral: deferred Cardiovascular: deferred Respiratory: deferred GI: deferred Musculoskeletal: deferred Skin: deferred Hem/Lymphatic: deferred Psych: deferred Neurological: deferred - Constitutional Vitals: Vital Signs Temp Pulse Resp BP Pulse Ox 98.5 F 56 L 16 112/70 99 04/09/21 11:33 04/09/21 11:33 04/09/21 11:33 04/09/21 11:33 04/09/21 11:33 Temperature -Last 24 Hours Temperature 98.5 F Temperature 98.3 F Temperature 98.3 F Temperature 98.5 F - Labs CBC & Chem 7: 04/08/21 06:52 04/09/21 05:36 Labs: Abnormal lab results 04/08/21 04/08/21 04/09/21 Range/Units 18:50 22:03 05:36 Sodium 134 L (137-145) mmol/L Potassium 3.5 L (3.6-5.0) mmol/L Chloride 97.7 L (98-107) mmol/L Creatinine 0.6 L (0.8-1.3) mg/dL Glucose 236 H (75-100) mg/dL POC Glucose 337 H 321 H (70-105) mg/dL Total Protein 5.5 L (6.3-8.2) g/dL Albumin 2.7 L (3.9-5) g/dL 04/09/21 Range/Units 12:10 Sodium (137-145) mmol/L Potassium (3.6-5.0) mmol/L Chloride (98-107) mmol/L Creatinine (0.8-1.3) mg/dL Glucose (75-100) mg/dL POC Glucose 153 H (70-105) mg/dL Total Protein (6.3-8.2) g/dL Albumin (3.9-5) g/dL
--- NOTE | 2021-04-09 18:20 | Consultation ---
History of Present Illness Consult date: 04/09/21 Consult reason: bradycardia History of present illness: The patient is a 55-year-old man admitted to this hospital 5 days ago with s hortness of breath, low-grade fever and bilateral pulmonary infiltrates worse on the right. His Covid test was positive for Covid viral pneumonia as etiology of his presentation. He is on the medical floor, on remdesivir and steroids, managed by infectious disease and internal medicine. Over the several days he has been in the hospital, he has had periods of bradycardia high 40s to low 50s, measured on the bedside vital signs Dinamap. The EKG on his presentation several days ago was normal sinus rhythm at 67, normal ECG. Patient is not on AV maris blocking agents, and denies history of thyroid disease. There is no prior thyroid history. Despite the noted bradycardia, he has no symptoms of dizziness or fatigue. Past History Past Surgical History: No surgical history Social history: no significant social history Family history: no significant family history Medications and Allergies Allergies Allergy/AdvReac Type Severity Reaction Status Date / Time No Known Allergies Allergy Unverified 06/12/19 07:02 Home Medications Medication Instructions Recorded Confirmed Last Taken Type DOXYCYCLINE Hyclate [Vibramycin 100 mg PO BID #10 capsule 06/16/19 04/05/21 Unknown Rx CAP] Insulin Glargine,Hum.rec.anlog 35 units SUB-Q QHS #2 pen 06/16/19 04/05/21 Unknown Rx [Lantus Solostar] Sodium Hypochlorite [Dakin's Full 473 ml IR BID #2 bottle 06/16/19 04/05/21 Unknown Rx Strength] cephALEXin [Keflex] 500 mg PO Q6HR #20 capsule 06/16/19 04/05/21 Unknown Rx Active Meds: Active Medications Acetaminophen (Acetaminophen 325 Mg Tab) 650 mg PO Q4H PRN PRN Reason: Pain MILD(1-3)/Fever >100.5/DOMINGO Ascorbic Acid (Ascorbic Acid 500 Mg Tab) 1,000 mg PO BID [facility] Last Admin: 04/09/21 09:52 Dose: 1,000 mg Documented by: Cholecalciferol (Cholecalciferol (Vit D3) 5,000 Unit Tab) 5,000 unit PO DAILY [facility] Last Admin: 04/09/21 09:53 Dose: 5,000 unit Documented by: Dexamethasone (Dexamethasone 4 Mg/Ml Vial) 8 mg IV Q24HR [facility] Stop: 04/13/21 10:01 Last Admin: 04/09/21 09:52 Dose: 8 mg Documented by: Enoxaparin Sodium (Enoxaparin 40 Mg/0.4 Ml Inj) 40 mg SUB-Q DAILY@2100 [facility] Last Admin: 04/08/21 21:44 Dose: 40 mg Documented by: Famotidine (Famotidine 20 Mg Tab) 20 mg PO BID [facility] Last Admin: 04/09/21 09:53 Dose: 20 mg Documented by: Hydromorphone HCl (Hydromorphone 1 Mg/1 Ml Inj) 0.5 mg IV Q3H PRN PRN Reason: Pain , Severe (7-10) REMDESIVIR 100 mg/ Sodium (Chloride) 250 mls @ 500 mls/hr IV Q24HR@2100 [facility] Stop: 04/10/21 21:29 Last Admin: 04/08/21 21:44 Dose: 500 mls/hr Documented by: Insulin Glargine (Insulin Glargine 100 Units/Ml) 60 units SUB-Q QHS [facility] Last Admin: 04/08/21 23:15 Dose: 60 units Documented by: Insulin Human Lispro (Insulin Lispro 100 Unit/Ml) 0 unit SUB-Q [facility]; Protocol Last Admin: 04/09/21 18:01 Dose: 4 unit Documented by: Metoclopramide HCl (Metoclopramide 10 Mg/2 Ml Inj) 10 mg IV Q6H PRN PRN Reason: Nausea And Vomiting Ondansetron HCl (Ondansetron 4 Mg/2 Ml Inj) 4 mg IV Q8H PRN PRN Reason: Nausea And Vomiting Oxycodone/Acetaminophen (Oxycodone /Acetaminophen 5-325mg Tab) 1 tab PO Q6H PRN PRN Reason: Pain, Moderate (4-6) Pseudoephedrine/Acetam/Chlorphenir (Guaifenesin/Codeine 100-10mg Oral Liqd 5 Ml) 10 ml PO Q6HR PRN PRN Reason: Cough Last Admin: 04/08/21 09:44 Dose: 10 ml Documented by: Sodium Chloride (Sodium Chloride 0.9% 10 Ml Flush Syringe) 10 ml IV BID [facility] Last Admin: 04/09/21 09:54 Dose: 10 ml Documented by: Sodium Chloride (Sodium Chloride 0.9% 10 Ml Flush Syringe) 10 ml IV PRN PRN PRN Reason: LINE FLUSH Sodium Chloride (Sodium Chloride 0.9% 50 Ml Ivpb) 50 ml IV Q24HR@2100 [facility] Stop: 04/10/21 21:01 Last Admin: 04/08/21 22:46 Dose: 50 ml Documented by: Zinc Sulfate (Zinc Sulfate 220 Mg Cap) 220 mg PO BID [facility] Last Admin: 04/09/21 09:53 Dose: 220 mg Documented by: Review of Systems Cardiovascular: shortness of breath, no chest pain, no orthopnea, no palpitations, no rapid/irregular heart beat, no edema, no syncope, no lightheadedness Physical Examination Vital Signs Temp Pulse Resp BP Pulse Ox 100.4 F H 94 H 16 174/92 88 04/04/21 13:02 04/04/21 13:02 04/04/21 13:02 04/04/21 13:02 04/04/21 13:02 Narrative exam: Full physical exam is deferred due to patient's acute Covid pneumonia. General appearance: no acute distress HEENT: Positive: PERRL Results 04/08/21 06:52 04/09/21 05:36 Cardiac Enzymes 04/09/21 Range/Units 05:36 AST 13 (5-40) units/L Comprehensive Metabolic Panel 04/09/21 Range/Units 05:36 Sodium 134 L (137-145) mmol/L Potassium 3.5 L (3.6-5.0) mmol/L Chloride 97.7 L (98-107) mmol/L Carbon Dioxide 26 (22-30) mmol/L BUN 15 (9-20) mg/dL Creatinine 0.6 L (0.8-1.3) mg/dL Glucose 236 H (75-100) mg/dL Calcium 9.1 (8.4-10.2) mg/dL AST 13 (5-40) units/L ALT 7 (7-56) units/L Alkaline Phosphatase 59 (35-129) units/L Total Protein 5.5 L (6.3-8.2) g/dL Albumin 2.7 L (3.9-5) g/dL EKG interpretations - Telemetry EKG Rhythm: Sinus Rhythm Assessment and Plan - Patient Problems (1) Bradycardia Current Visit: Yes Status: Acute Plan to address problem: Patient with acute COVID-19 viral pneumonia, under treatment with remdesivir and steroids, reported with bradycardia on vital signs monitoring. Initial ECG on presentation was in normal sinus rhythm. Patient is asymptomatic with the bradycardia. We will order remote telemetry monitoring, and a thyroid-stimulating hormone profile. If this is a sinus rhythm, we will recommend conservative cardiac monitoring of asymptomatic bradycardia.
[2021-04-09] MEDS: REMDESIVIR 100 MG in SODIUM CHLORIDE 0.9% 250ML 250 ML IV SCH (23:12)
[2021-04-09] MEDS: SODIUM CHLORIDE 0.9% 50 ML IVPB IV SCH (23:12)
[2021-04-09] MEDS: INSULIN GLARGINE 100 UNITS/ML SUB-Q SCH (23:12)
[2021-04-09] MEDS: ENOXAPARIN 40 MG/0.4 ML INJ SUB-Q SCH (23:12)
[2021-04-10 06:50] LABS: Hematocrit 34.7 % (35.5-45.6); Hemoglobin 11.5 gm/dl (11.8-15.2); Mean Corpuscular HGB Conc 33 % (32-34); Mean Corpuscular Volume 91 fl (84-94); Platelet Count 379 K/mm3 (140-440); Red Blood Count 3.82 M/mm3 (3.65-5.03); Red Cell Distribution Width 13.9 % (13.2-15.2)
[2021-04-10 07:20] LABS: BUN/Creatinine Ratio 25; Blood Urea Nitrogen 15 mg/dL (9-20); Calcium 8.5 mg/dL (8.4-10.2); Hemolysis Index 3
[2021-04-10] MEDS: ASCORBIC ACID 500 MG TAB PO SCH (09:31)
[2021-04-10] MEDS: dexAMETHasone 4 MG/ML VIAL IV SCH (09:31)
[2021-04-10] MEDS: CHOLECALCIFEROL (VIT D3) 5,000 UNIT TAB PO SCH (09:31)
[2021-04-10] MEDS: FAMOTIDINE 20 MG TAB PO SCH (09:32)
[2021-04-10] MEDS: INSULIN LISPRO 100 UNIT/ML SUB-Q SCH ×3 (09:33→17:14)
--- NOTE | 2021-04-10 09:49 | Progress Note ---
Assessment and Plan - Patient Problems (1) Bradycardia Current Visit: Yes Status: Acute Plan to address problem: Intermittent, asymptomatic sinus bradycardia Initial ECG on presentation was in normal sinus rhythm. TSH is normal Avoid AV maris blocking agents. Continue telemetry monitoring. (2) Pneumonia Current Visit: Yes Status: Acute Plan to address problem: Acute COVID-19 viral pneumonia, under treatment with remdesivir and steroids. Subjective Date of service: 04/10/21 Interval history: No distress noted. Currently, he is sinus rhythm, rate 69 on telemetry. Objective Vital Signs Temp Pulse Resp BP Pulse Ox 04/10/21 05:23 98.0 F 48 L 18 129/68 95 04/09/21 22:19 97.7 F 49 L 18 125/74 96 04/09/21 22:00 19 96 04/09/21 16:10 98.3 F 60 18 117/70 97 04/09/21 16:00 98 04/09/21 11:33 98.5 F 56 L 16 112/70 99 04/09/21 10:00 95 - Physical Examination Narrative exam: Deferred due to isolation protocol. General: No Apparent Distress Cardiac: Positive: Reg Rate and Rhythm - Labs and Meds CBC 04/10/21 Range/Units 06:20 WBC 7.4 (4.5-11.0) K/mm3 RBC 3.82 (3.65-5.03) M/mm3 Hgb 11.5 L (11.8-15.2) gm/dl Hct 34.7 L (35.5-45.6) % Plt Count 379 (140-440) K/mm3 Comprehensive Metabolic Panel 04/10/21 Range/Units 06:20 Sodium 136 L (137-145) mmol/L Potassium 4.0 (3.6-5.0) mmol/L Chloride 100.5 (98-107) mmol/L Carbon Dioxide 25 (22-30) mmol/L BUN 15 (9-20) mg/dL Creatinine 0.6 L (0.8-1.3) mg/dL Glucose 191 H (75-100) mg/dL Calcium 8.5 (8.4-10.2) mg/dL
--- NOTE | 2021-04-10 14:32 | Discharge Summary ---
Providers - Providers Date of Admission: 04/04/21 17:08 Date of discharge: 04/10/21 Attending physician: NICOLÁS YEAGER 04/04/21 20:50 Consult to Physician [CONS] Routine Comment: Consulting Provider: DUARTE LYNN Physician Instructions: Reason For Exam: bilateral pneumonia 04/09/21 11:31 Consult to Physician [CONS] Routine Comment: Consulting Provider: JOEY HODGSON Physician Instructions: Reason For Exam: Bradycardia, Covid +ve Primary care physician: [employer] Hospitalization Condition: Stable Pertinent studies: Chest x-ray: Bilateral pneumonia Hospital course: 55-year-old male with h/o DM presented to hospital complaining of shortness of breath for 1 week prior to admission. He refused Covid vaccination previously. Hypoxic on presentation, temperature of 100.4 and white count of 4. Patient was placed on empiric antibiotics, 2 L nasal cannula, ordered for Covid testing a dmitted for hospital for further evaluation management. Imaging personally reviewed: Chest x-ray: Bilateral pneumonia. Covid test was positive on April 05, 2021 -CXR showed patchy parenchymal disease which represent pulmonary edema or atypical pneumonia -Placed on dexamethasone for total 10 days and remdesivir total 5 days -Antibiotic was not required as procalcitonin level was normal - Placed on Droplet/contact isolation, continuous SPO2 monitoring, supplemental oxygen as needed, pulmonary hygiene, prone to sleep, Vitamin C, vitamin D, zinc -Patient was given anticoagulation per protocol, Lasix IV as needed to prevent pulmonary edema -Infectious disease was consulted. Assessed for Home O2 requirement. -Patient's symptoms improved with current Mx and was assessed for home O2 requirement. - Patient was then discharged home in stable condition with outpt followup. Daily clinical course: 04/05/21 Patient with acute respiratory failure secondary to bilateral pneumonia. He positive for COVID-19 Initiated on Covid protocol Diabetes uncontrolled. Bld glucose 538 with A1C of 18.7. Will Increase lantus to 45 Units subcut q hs Give Humalog 16 Units subcut now 04/06/21 Patient with acute resp failure secondary to Covid Pneumonia. Diabetes uncontrolled. Will Increase Lantus to 55 Units qhs He stated he had stopped taking Insulin for about 6 months 04/07/21 Patient with acute resp failure secondary to Covid Pneumonia. Diabetes uncontrolled, but improving. Continue lantus at 55 Units qhs 04/08/21 Patient with acute resp failure secondary to Covid Pneumonia. On Remdesivir Now on oxygen at 3 l/min NC Diabetes uncontrolled, but improving. Will increase Lantus to 60 Units QHS 04/09/21 Patient with acute resp failure secondary to Covid Pneumonia. On Remdesivir Now on oxygen at 2 l/min NC, was at 3l/min yesterday Diabetes uncontrolled, but improving. Continue Lantus at 60 Units QHS Bradycardia:Obtain EKG, consult Cardiology 04/10/21; last dose of remdesivir today, cardiology following and recommended medical management. Patient resting on room air, ambulatory O2 status also found to be normal in room air.. Patient will be discharged home with outpa tient follow-up. Discharge plan and management was thoroughly discussed with the patient and he verbalized understanding. Disposition: HOME HEALTH CARE SERVICE Final Discharge Diagnosis (Prints w/discharge instructions): --Acute respiratory failure with hypoxia. --SIRS. --Bilateral pneumonia with COVID 19. --Insulin dependent diabetes mellitus. --Hyponatremia. --Malnutrition, moderate Time spent for discharge: 34 minutes Core Measure Documentation - Palliative Care Palliative Care/ Comfort Measures: Not Applicable - Core Measures Any of the following diagnoses?: none Exam - Physical Exam Narrative exam: Limited physical exam due to COVID-19 pandemic to minimize transmission of the disease and to preserve PPE. Vital reviewed and stable. GENERAL: well-developed well-nourished -[place] male sitting on bed appeared to be in no discomfort. HEENT: Normocephalic. Atraumatic. NECK: Supple. CHEST/LUNGS: breathing nonlabored. HEART/CARDIOVASCULAR: Heart rate stable on telemetry ABDOMEN: Visibly not distended SKIN: There is no rash NEURO: No focal motor deficit. Follows command. MUSCULOSKELETAL: No joint effusion EXTRIMITY: No swelling, no cyanosis or clubbing. PSYCH: Cooperative. - Constitutional Vitals: Temp Pulse Resp BP Pulse Ox 98.6 F 61 22 117/68 96 04/10/21 11:52 04/10/21 11:52 04/10/21 11:52 04/10/21 11:52 04/10/21 11:52 Plan Activity: advance as tolerated Weight Bearing Status: Weight Bear as Tolerated Diet: low fat, low salt Additional Instructions: Upon discharge patient should self-quarantine at home up to 2 weeks from the onset of symptoms. Patients should return to hospital regardless if they have worsening fevers or respiratory status. Follow up with: PRIMARY CARE, [Primary Care Provider] - 7 Days NELSON MCKINNEY MD [Staff Physician] - 7 Days Prescriptions: Dexamethasone [Decadron] 6 mg PO DAILY #3 tablet Lispro Insulin [HumaLOG] 0 unit SUB-Q ACHS #1 vial Insulin Lispro Prot/Lispro [HumaLOG MIX 75/25] 30 unit SQ BIDDIAB 30 Days Famotidine [Pepcid] 20 mg PO BID #14 tablet Albuterol Mdi (or & Nicu Only) [ProAir HFA Inhaler] 2 puff IH QID PRN #8.5 gram PRN Reason: Shortness Of Breath Ascorbic Acid [Vitamin C] 1,000 mg PO BID #10 tablet Cholecalciferol (Vitamin D3) [Vitamin D3] 5,000 unit PO DAILY #7 tablet Zinc Sulfate 220 mg PO BID #10 capsule
[2021-04-10] MEDS: SODIUM CHLORIDE 0.9% 50 ML IVPB IV SCH (15:07)
[2021-04-10] MEDS: REMDESIVIR 100 MG in SODIUM CHLORIDE 0.9% 250ML 250 ML IV SCH (15:07)
[2021-04-10] MEDS: ZINC SULFATE 220 MG CAP PO SCH (15:07)
--- NOTE | 2021-04-10 15:10 | Event Note ---
Date: 04/10/21 Patient completed Remdesivir dose today. Ambulatory sats were 98% on room air at rest and 95% on ambulation on room air, d/w RN. Okay for discharge from ID standpoint
--- NOTE | 2021-04-10 17:49 | Electrocardiograph Report ---
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
[2021-04-10 18:00] VITALS: BP 126/81
== END 2021-04-10 18:00 | disposition home health service (06) | DRG 177 ==
LOC: ED 12:53 → 3A 17:08
PROVIDERS: ADMIT Internal Medicine; ATTEND Internal Medicine
PROC: XW033E5 Introduction of Remdesivir Anti-infective into Peripheral Vein, Percutaneous Approach, New Technology Group 5 (ICD-10-PCS; principal; 2021-04-06)
DX: U07.1 COVID-19 (principal); J12.82 Pneumonia due to coronavirus disease 2019; J96.01 Acute respiratory failure with hypoxia; R65.10 Systemic inflammatory response syndrome (SIRS) of non-infectious origin without acute organ dysfunction; E87.1 Hypo-osmolality and hyponatremia; E44.0 Moderate protein-calorie malnutrition; E11.9 Type 2 diabetes mellitus without complications; Z87.891 Personal history of nicotine dependence; Z82.49 Family history of ischemic heart disease and other diseases of the circulatory system
CPT/HCPCS: 36415; 71046; 80048; 80053; 82140; 82728; 82962; 83036; 83615; 84145; 84443; 84484; 85007; 85025; 85027; 85379; 86140; 87040; 93005; 94760; G0378; J0456; J0696; J1100; J1650; J1815; J7030; J7050; U0003